=== PATIENT | female | born 1975 | race Caucasian/White ===

== ENCOUNTER 2020-04-09 12:15 | Outpatient (REF) | payer MEDICARE, SELFPAY | END 2020-04-09 12:16 | disposition home or self-care (01) | LOC: HO.LAB 12:15 | PROVIDERS: Visit Provider Internal Medicine | DX: Z20.828 Contact with and (suspected) exposure to other viral communicable diseases (principal) | CPT/HCPCS: C9803; U0003 ==

== ENCOUNTER 2020-05-01 10:24 | Outpatient (REF) | payer OTHER, SELFPAY ==
--- NOTE | 2020-05-01 10:36 | XR_ITS ---
EXAMINATION: XR BILATERAL SHOULDERS CLINICAL INFORMATION: Pain. COMPARISON: None. TECHNIQUE: Each 3 views. FINDINGS: Left Shoulder: Mild glenohumeral joint osteoarthritis. No fracture or dislocation. No abnormal soft tissue calcification. AC joint appears intact. Right Shoulder: Mild glenohumeral joint osteoarthritis. AC joint is intact. No abnormal soft tissue calcification. No fracture or dislocation. XR/XR shoulder RT min 2V IMPRESSION: Mild bilateral glenohumeral joint osteoarthritis.
--- NOTE | 2020-05-01 10:36 | XR_ITS ---
EXAMINATION: XR BILATERAL SHOULDERS CLINICAL INFORMATION: Pain. COMPARISON: None. TECHNIQUE: Each 3 views. FINDINGS: Left Shoulder: Mild glenohumeral joint osteoarthritis. No fracture or dislocation. No abnormal soft tissue calcification. AC joint appears intact. Right Shoulder: Mild glenohumeral joint osteoarthritis. AC joint is intact. No abnormal soft tissue calcification. No fracture or dislocation. XR/XR shoulder LT min 2V IMPRESSION: Mild bilateral glenohumeral joint osteoarthritis.
== END 2020-05-01 10:25 | disposition home or self-care (01) ==
LOC: HO.HOSX 10:24
PROVIDERS: PCP Internal Medicine; Visit Provider Orthopaedic Surgery
DX: M75.41 Impingement syndrome of right shoulder (principal); M75.42 Impingement syndrome of left shoulder
CPT/HCPCS: 73030; 99202

== ENCOUNTER 2020-05-15 12:31 | Outpatient (REF) | payer OTHER, SELFPAY | END 2020-05-15 12:32 | disposition home or self-care (01) | LOC: HO.LAB 12:31 | PROVIDERS: Visit Provider Internal Medicine | DX: Z20.822 Contact with and (suspected) exposure to COVID-19 (principal) | CPT/HCPCS: 36415; C9803; U0003; U0005 ==

== ENCOUNTER 2020-05-25 16:23 | Emergency (ER) | payer OTHER, SELFPAY ==
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
[2020-05-25 18:12] VITALS: BP 126/85; PULSE 76; RESP 18; TEMP 36.7; O2SAT 98; BMI 28.4
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
[2020-05-25 19:57] VITALS: BP 134/78; PULSE 78; RESP 18; TEMP 37.1; O2SAT 97
== END 2020-05-25 21:13 | disposition home or self-care (01) ==
PROVIDERS: Emergency Provider Emergency Medicine
DX: S13.4XXA Sprain of ligaments of cervical spine, initial encounter (principal); S39.012A Strain of muscle, fascia and tendon of lower back, initial encounter; V43.52XA Car driver injured in collision with other type car in traffic accident, initial encounter; M50.322 Other cervical disc degeneration at C5-C6 level; Y93.89 Activity, other specified; Y92.414 Local residential or business street as the place of occurrence of the external cause; Y99.9 Unspecified external cause status
CPT/HCPCS: 71046; 72040; 72100; 72170; 72220; 99283; 99284

== ENCOUNTER 2020-08-23 08:05 | Outpatient (REF) | payer OTHER, SELFPAY | END 2020-08-23 08:06 | disposition home or self-care (01) | LOC: HO.HOSX 08:05 | PROVIDERS: Visit Provider Physician Assistant | DX: Z13.89 Encounter for screening for other disorder (principal) ==

== ENCOUNTER 2020-08-24 12:40 | Outpatient (REF) | payer OTHER, SELFPAY ==
--- NOTE | ~2020-08-24 | XR_ITS ---
EXAMINATION: BILATERAL KNEE X-RAY CLINICAL INFORMATION: Pain COMPARISON: None TECHNIQUE: Standing AP, lateral and sunrise view of both knees FINDINGS: Right: Bone alignment is normal. No fracture or dislocation is seen. There is mild medial femoral tibial joint space narrowing. There is a joint effusion. Left: Bone alignment is normal. No fracture or dislocation is seen. Joint spaces are normal. There is no joint effusion. XR/XR knee standing BI IMPRESSION: Mild joint space narrowing at the medial femoral tibial joint and joint joint effusion. Normal left knee.
--- NOTE | ~2020-08-24 | XR_ITS ---
EXAMINATION: BILATERAL KNEE X-RAY CLINICAL INFORMATION: Pain COMPARISON: None TECHNIQUE: Standing AP, lateral and sunrise view of both knees FINDINGS: Right: Bone alignment is normal. No fracture or dislocation is seen. There is mild medial femoral tibial joint space narrowing. There is a joint effusion. Left: Bone alignment is normal. No fracture or dislocation is seen. Joint spaces are normal. There is no joint effusion. XR/XR knee RT 2V IMPRESSION: Mild joint space narrowing at the medial femoral tibial joint and joint joint effusion. Normal left knee.
--- NOTE | ~2020-08-24 | XR_ITS ---
EXAMINATION: BILATERAL KNEE X-RAY CLINICAL INFORMATION: Pain COMPARISON: None TECHNIQUE: Standing AP, lateral and sunrise view of both knees FINDINGS: Right: Bone alignment is normal. No fracture or dislocation is seen. There is mild medial femoral tibial joint space narrowing. There is a joint effusion. Left: Bone alignment is normal. No fracture or dislocation is seen. Joint spaces are normal. There is no joint effusion. XR/XR knee LT 2V IMPRESSION: Mild joint space narrowing at the medial femoral tibial joint and joint joint effusion. Normal left knee.
== END 2020-08-24 12:41 | disposition home or self-care (01) ==
LOC: HO.HOSX 12:40
PROVIDERS: Visit Provider Physician Assistant
DX: M25.561 Pain in right knee (principal); M25.562 Pain in left knee; M22.2X1 Patellofemoral disorders, right knee; M22.2X2 Patellofemoral disorders, left knee
CPT/HCPCS: 73560; 73565

== ENCOUNTER 2020-09-29 12:21 | Outpatient (REF) | payer OTHER, SELFPAY | END 2020-09-29 12:22 | disposition home or self-care (01) | LOC: HO.LAB 12:21 | PROVIDERS: Visit Provider Nurse Practitioner Family | DX: R30.0 Dysuria (principal) | CPT/HCPCS: 87086; 87088; 87186 ==

== ENCOUNTER 2021-05-06 10:30 | Outpatient (RCR) | payer OTHER, SELFPAY ==
[2021-04-22 12:15] VITALS: BMI 28.3
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
--- NOTE | 2021-04-22 16:59 | P.CNPS_ITS ---
History of Present Illness Chief Complaint: Bipolar, Anxiety, Depression [facility] Medical History Anxiety Diagnostics Vital Signs (24Hr): BMI result Body Mass Index 28.3 Medications Allergies Allergies Allergy/AdvReac Type Severity Reaction Status Date / Time fluconazole [Diflucan] Allergy Unknown unk Verified 08/24/20 12:55 Assessment & Plan I spent minutes with the patient and/or on the patient floor today, greater than?50% of which was spent counseling/coordinating care.
--- NOTE | 2021-04-26 14:10 | PC.NURSE ---
The client came to community meeting but left after for the day due to feeling very ill and going to get tested for COVID
--- NOTE | 2021-04-29 15:05 | P.PNPSP_ITS ---
Subjective Subjective Date of Service: 04/29/21 Reason For Visit: Bipolar, Anxiety, Depression Guardianship: No Medical Problems Affecting Mental Status: No Interim History: Becki reports I'm okay, a little overwhelmed . Reports feeling ill, as was diagnosed with COVID yesterday. Describes mood as ?not the best ?. No thoughts of harm to self or others, no safety concern. Reports positive affect from added Vistaril. Medication Compliance: Yes Side effects from medications: No Attending Groups: Yes Review of Systems Acute medical concerns: Yes Currently has COVID. Medical Review of Systems: changed Review of Systems Constitutional: Reports body ache(s), Reports fatigue, Reports lethargy and Reports malaise Eyes: Reports no additional eye complaints Reports nasal congestion and Reports nasal discharge Cardiovascular: Reports no additional cardiovascular complaints Respiratory: Reports cough Gastrointestinal: Reports no additional gastrointestinal complaints Genitourinary: Reports no additional female genitourinary complaints Musculoskeletal: Reports no additional musculoskeletal complaints Skin/Breast: Reports system reviewed and no additional complaints, except as docu Reports system reviewed and no additional complaints, except as documented Endocrine: Reports fatigue Mental Status Exam Mental Status Exam Narrative: Well-developed, well-nourished female, in NAD. Client was walking about during encounter. Patient Appearance: Fatigued, Disheveled and Appropriate Patient Orientation: Person, Place, Time and Situation Level of Consciousness: Appropriate and Alert Patient Behavior: Appropriate, Cooperative, Restless, Distractible and Good Eye Contact Mood Description: Appropriate, Depressed and Anxious Affect Description: Depressed, Anxious (irritable) and Nervous Patient Cognition Impaired: No Ability to Follow Directions: Excellent Speech Pattern: Clear, Appropriate and Coherent Memory Description: Intact Hallucinations: None Delusions: Not Present Thought Process: Intact Thought Content: positive for Intact Depressive Symptoms: Increased Anxiety, Increased Irritability, Loss of Int. in Activity, Hopelessness, Increased Fatigue and Difficulty Concentrating Judgement: Fair Diagnostics Vital Signs (24Hr): BMI result Body Mass Index 28.3 Assessment & Plan Assessment & Plan (1) WANDA (generalized anxiety disorder): Status: Acute Code(s): F41.1 - Generalized anxiety disorder (2) Major depressive disorder, recurrent severe without psychotic features: Status: Acute Code(s): F33.2 - Major depressive disorder, recurrent severe without psychotic features Assessment and Plan: Client continues with symptoms of anxiety and depression. Reports feeling overwhelmed today. No indication of harm to self or others, no safety concern. Reports that the Vistaril that was started during last visit has been helpful. Reports she is currently suffering from COVID-19 symptoms. Reports feeling helpless. Discussed alcohol use, and medications such as naltrexone or acamprosate. She states that she had been on naltrexone in the past, and stopped 5 years ago when she found out she was . A referral to [facility] was offered, as well as starting oral naltrexone now. She stated that she will wait, and ?think about it ?. Assessment and Plan: 1. Continue with current medications as prescribed. 2. Continue with current [facility] plan of care. 3. Follow up as per protocol. Patient educated on: diagnosis, medication risk/benefits, substance abuse and therapeutic strategies Informed Consent: understands Reason for contiued partial hosp. stay Substantial Risk for: inability to function and med/psych decompensation Certification I certify that partial hospital treatment is medically necessary due to the symptoms and problems resulting from the patient's mental illness and the failure to treat the patient at the partial hospital level of care would likely result in the patient requiring inpatient psychiatric care which could not be prevented at a less intensive level of care. I spent minutes with the patient and/or on the patient floor today, greater than?50% of which was spent counseling/coordinating care. Discharge Plan Discharge Attending provider: Eduard Caceres Medications: New hydroxyzine HCl 50 mg tablet 50 mg PO TID PRN (Reason: anxiety, agitation) Qty: 90 RF: 0 No Action clonazepam [Klonopin] 1 mg Tablet 1 mg PO DAILY PRN (Reason: Anxiety) RF: 0 propranolol 40 mg Tablet 20 mg PO TID PRN (Reason: panic/anxiety) RF: 0 Flovent 44 mcg/actuation Hfa Aerosol Inhaler 2 puff INHALATION BID RF: 0 albuterol sulfate 90 mcg/actuation Hfa Aerosol Inhaler 2 puff INHALATION Q6H PRN (Reason: Shortness Of Breath) RF: 0 aripiprazole 15 mg Tablet 7.5 mg PO DAILY RF: 0 melatonin 10 mg Tablet 10 mg PO BEDTIME PRN (Reason: Insomnia) RF: 0 Telehealth Telehealth Location of provider rendering services: practice address Location of patient: address on file Patient Identification confirmed using: Name, : Yes Telehealth method: video Patient verbally consented to treatment: Yes Patient verbally consented to billing insurance company: Yes Patient informed of any privacy concerns related to visit: Yes Time spent with patient (mins): 15
--- NOTE | 2021-05-03 10:16 | PC.NURSE ---
I spoke to patient yesterday and she stated she has an upcoming eye appointment with a new eye doctor d/t complaints of blurry vision. Alaina Yuen NP aware.
--- NOTE | 2021-05-06 12:57 | PC.NURSE ---
referral made to [facility] spoke with Briana Raines. I gave demographics and they will need md order faxed.
--- NOTE | 2021-05-06 15:01 | PC.NURSE ---
I left a message with the clients therapist, Nancy Pollock, about the clients upcoming completion of program and dc plans.
--- NOTE | 2021-05-06 20:54 | P.PNPSP_ITS ---
Subjective Subjective Date of Service: 05/06/21 Reason For Visit: Bipolar, Anxiety, Depression Guardianship: No Medical Problems Affecting Mental Status: No Interim History: Becki reports I'm doing fairly well today . She wants to go to [facility]. Reports craving alcohol, Interested in Vivitrol. Reports hydroxyzine has help decrease anxiety symptoms. No thoughts of harm to self or others, no safety concern. Medication Compliance: Yes Side effects from medications: No Attending Groups: Yes Review of Systems Acute medical concerns: No Medical Review of Systems: unchanged Review of Systems Review of Systems Yes all other systems are reviewed and are negative Constitutional: Reports no additional constitutional complaints Eyes: Reports no additional eye complaints Mental Status Exam Mental Status Exam Narrative: Well-developed, well-nourished female, in NAD. Fully attentive during encounter. Mood good , affect congruent, no constriction/lability noted. Patient Appearance: Well Grooomed and Appropriate Patient Orientation: Person, Place, Time and Situation Level of Consciousness: Appropriate and Alert Patient Behavior: Appropriate, Cooperative and Good Eye Contact Mood Description: Appropriate Affect Description: Calm Patient Cognition Impaired: No Ability to Follow Directions: Excellent Speech Pattern: Clear, Appropriate and Coherent Memory Description: Intact Hallucinations: None Delusions: Not Present Thought Process: Intact Thought Content: positive for Intact Judgement: Good Diagnostics Vital Signs (24Hr): BMI result Body Mass Index 28.3 Assessment & Plan Assessment & Plan (1) Major depressive disorder, recurrent severe without psychotic features: Status: Acute Code(s): F33.2 - Major depressive disorder, recurrent severe without psychotic features Assessment and Plan: Reports feeling less depressed, states groups in [facility] have been helpful. Taking hydroxyzine prn, with positive effect for ptsd/stress/anxiety symptom management. No thoughts of harm to self or others, no safety concerns. States she believes she would benefit from anger management classes, states she is going to look for one. (2) Post traumatic stress disorder (PTSD): Status: Acute Code(s): F43.10 - Post-traumatic stress disorder, unspecified Assessment and Plan: Utilizing prn hydroxyzine, with good effect. (3) Alcohol abuse: Status: Acute Code(s): F10.10 - Alcohol abuse, uncomplicated Assessment and Plan: Remains abstinent from alcohol. States she has cravings, and is interested in Vivitrol. Willing to start oral naltrexone, and receive a referral to [facility]. Community support groups, such as AA were also strongly encouraged. She has been attending, and says she plans to continue. Assessment and Plan: 1. Continue with current medications as prescribed. 2. Start naltrexone 50mg daily, script sent, and referral to [facility] [[email or web address] placed. 3. Client stable for discharge frm [facility], [facility]. Patient educated on: diagnosis, medication risk/benefits, substance abuse and therapeutic strategies Informed Consent: understands Reason for contiued partial hosp. stay Substantial Risk for: stable for discharge Certification I certify that partial hospital treatment is medically necessary due to the symptoms and problems resulting from the patient's mental illness and the failure to treat the patient at the partial hospital level of care would likely result in the patient requiring inpatient psychiatric care which could not be prevented at a less intensive level of care. I spent minutes with the patient and/or on the patient floor today, greater than?50% of which was spent counseling/coordinating care. Discharge Plan Discharge Attending provider: Eduard Caceres Additional Instructions: Rebecca Pollock [facility] 04/28/21, Elizabeth Moser [employer]PERATOR 06/04/21 referral made to [address]. Appointment 05/10/21 at 10:00 Am. Medications: New hydroxyzine HCl 50 mg tablet 50 mg PO TID PRN (Reason: anxiety, agitation) Qty: 90 RF: 0 naltrexone 50 mg tablet 50 mg PO DAILY 30 Days Qty: 30 RF: 0 No Action clonazepam [Klonopin] 1 mg Tablet 1 mg PO DAILY PRN (Reason: Anxiety) RF: 0 propranolol 40 mg Tablet 20 mg PO TID PRN (Reason: panic/anxiety) RF: 0 Flovent 44 mcg/actuation Hfa Aerosol Inhaler 2 puff INHALATION BID RF: 0 albuterol sulfate 90 mcg/actuation Hfa Aerosol Inhaler 2 puff INHALATION Q6H PRN (Reason: Shortness Of Breath) RF: 0 aripiprazole 15 mg Tablet 7.5 mg PO DAILY RF: 0 melatonin 10 mg Tablet 10 mg PO BEDTIME PRN (Reason: Insomnia) RF: 0 Stand Alone Forms: Patient Portal Discharge page Telehealth Telehealth Location of provider rendering services: practice address Location of patient: address on file Patient Identification confirmed using: Name, : Yes Telehealth method: video Patient verbally consented to treatment: Yes Patient verbally consented to billing insurance company: Yes Patient informed of any privacy concerns related to visit: Yes Time spent with patient (mins): 20
--- NOTE | 2021-05-07 11:00 | PC.NURSE ---
Upon the clients permission I spoke with Monserrat CARMICHAEL, the court gang investigator. I informed her of the client successful completion of the program including attendance , active participation in groups, and aftercare plans.
--- NOTE | 2021-05-07 11:05 | PC.NURSE ---
I spoke with Becki this morning and she gave me permission to speak with Monserrat CARMICHAEL . Monserrat is the court paranormal investigator.
--- NOTE | 2021-05-07 11:19 | PC.NURSE ---
Patient discharged on 05/06/21. Patient feeling ready for discharge. Denied SI or thoughts to harm self. Feeling anxious regarding court on 05/07/21. Reviewed patient medications with patient. Reports taking medications as prescribed. Patient interested in medication assisted treatment at [facility] and she has an appointment on 05/10/21 at 10:00 am.
== END 2021-05-07 07:08 | disposition home or self-care (01) ==
LOC: HO.PHPA 10:30
PROVIDERS: Visit Provider Psychiatry & Neurology Psychiatry
DX: F33.2 Major depressive disorder, recurrent severe without psychotic features (principal); F41.1 Generalized anxiety disorder; F43.10 Post-traumatic stress disorder, unspecified; F10.10 Alcohol abuse, uncomplicated; Z79.899 Other long term (current) drug therapy
CPT/HCPCS: 90791; 90853

== ENCOUNTER → 2021-05-13 10:14 | Outpatient (BNVA) | payer OTHER, SELFPAY | PROVIDERS: Visit Provider Internal Medicine | DX: F10.10 Alcohol abuse, uncomplicated (principal); F43.10 Post-traumatic stress disorder, unspecified; F33.2 Major depressive disorder, recurrent severe without psychotic features; F41.1 Generalized anxiety disorder; Z79.899 Other long term (current) drug therapy | CPT/HCPCS: 80305; 99202 ==

== ENCOUNTER → 2021-05-28 11:21 | Outpatient (BNVA) | payer OTHER, SELFPAY | PROVIDERS: Visit Provider Internal Medicine | DX: F10.10 Alcohol abuse, uncomplicated (principal); Z51.81 Encounter for therapeutic drug level monitoring; Z79.899 Other long term (current) drug therapy | CPT/HCPCS: 80305; 96372; 99212; J2315 ==

== ENCOUNTER 2021-06-06 16:03 | Outpatient (REF) | payer OTHER, SELFPAY ==
[2021-06-06 16:39] LABS: Hemoglobin 13.9 g/dl (12.0-16.0); Mean Corpuscular HGB Conc 33.1 g/dl (31.0-35.0); Mean Corpuscular Hemoglobin 29.9 pg (27.0-33.0); Mean Corpuscular Volume 90.3 fL (80.0-98.0); Mean Platelet Volume 9.5 fL (9.4-12.3); Platelet Count 260 X10*3/uL (160-400); Red Blood Count 4.65 X10*6/uL (4.20-5.50); Red Cell Distribution Width 13.3 % (11.0-16.0); White Blood Count 9.2 X10*3/uL (4.8-10.8)
[2021-06-06 16:58] LABS: Alanine Aminotransferase 11 U/L (0-31); Alkaline Phosphatase 74 U/L (39-117); Anion Gap 12 (12-20); Aspartate Amino Transferase 17 U/L (5-31); Bilirubin Direct 0.2 mg/dL (0.0-0.5); Bilirubin Total 0.7 mg/dL (0.0-1.0); Blood Urea Nitrogen 8 mg/dL (9-16); Calcium 9.4 mg/dL (8.4-10.2); Carbon Dioxide 26 mmol/L (22-29); Chloride 104 mmol/L (96-108); Estimated Glomerular Filt Rate > 60; Glucose Random 123 mg/dL (60-115); Potassium 3.9 mmol/L (3.3-5.1); Sodium 138 mmol/L (135-145); Total Protein 6.8 g/dL (6.5-8.0)
[2021-06-06 17:35] LABS: Amphetamine Screen Urine Not Detected (Not Detect); Barbiturates, Urine Not Detected (Not Detect); Benzodiazepines Screen Urine Not Detected (Not Detect); Cannabinoid Screen Urine POSITIVE (Not Detect); Cocaine Screen Urine Not Detected (Not Detect); Fentanyl, urine Not Detected (Not Detect); Opiate Screen Urine Not Detected (Not Detect); Phencyclidine Screen Urine Not Detected (Not Detect)
[2021-06-07 07:39] LABS: Hepatitis A Antibody IgG Nonreactive (Nonreactive); ~Hepatitis A Antibody IgG 0.55 S/CO (0.00-0.99)
[2021-06-07 07:49] LABS: HBS Num1 1.18 mIU/mL (0-7.99); ~HepC Num1 0.08 S/CO (0.00-0.79); ~Hepatitis B Surface Antibody NONREACTIVE (Nonreactive); ~Hepatitis C Antibody Nonreactive (Nonreactive)
[2021-06-07 08:00] LABS: HIV AB/AG Nonreactive (Nonreactive); HIV Num 1 0.05 S/CO (0.00-0.99); Hepatitis B Surface Antigen Negative (Negative)
== END 2021-06-06 16:04 | disposition home or self-care (01) ==
LOC: HO.LAB 16:03
PROVIDERS: Absent Provider Nurse Practitioner Psychiatric/Mental Health; PCP Nurse Practitioner Psychiatric/Mental Health; Visit Provider Internal Medicine
DX: F10.10 Alcohol abuse, uncomplicated (principal); Z79.891 Long term (current) use of opiate analgesic
CPT/HCPCS: 36415; 80048; 80076; 80307; 85027; 86706; 86708; 86803; 87340; 87389

== ENCOUNTER → 2021-06-25 10:37 | Outpatient (BNVA) | payer OTHER, SELFPAY | PROVIDERS: PCP Nurse Practitioner Psychiatric/Mental Health; Visit Provider Internal Medicine | DX: F10.10 Alcohol abuse, uncomplicated (principal); Z51.81 Encounter for therapeutic drug level monitoring; Z79.899 Other long term (current) drug therapy | CPT/HCPCS: 80305; 96372; 99212; J2315 ==

== ENCOUNTER → 2021-07-24 14:03 | Outpatient (BNVA) | payer OTHER, SELFPAY | PROVIDERS: Visit Provider Internal Medicine | DX: Z51.81 Encounter for therapeutic drug level monitoring (principal); F10.10 Alcohol abuse, uncomplicated | CPT/HCPCS: 80305; 96372; 99212; J2315 ==

== ENCOUNTER → 2021-08-27 13:04 | Outpatient (BNVA) | payer OTHER, SELFPAY | PROVIDERS: Visit Provider Internal Medicine | DX: Z51.81 Encounter for therapeutic drug level monitoring (principal); F10.10 Alcohol abuse, uncomplicated | CPT/HCPCS: 80305; 96372; 99212; J2315 ==

== ENCOUNTER → 2021-09-30 13:30 | Outpatient (BNVA) | payer OTHER, SELFPAY | PROVIDERS: Visit Provider Internal Medicine | DX: Z51.81 Encounter for therapeutic drug level monitoring (principal); Z32.02 Encounter for pregnancy test, result negative; F10.10 Alcohol abuse, uncomplicated; F17.210 Nicotine dependence, cigarettes, uncomplicated | CPT/HCPCS: 96372; 99212; J2315 ==

== ENCOUNTER → 2021-10-28 14:21 | Outpatient (BNVA) | payer OTHER, SELFPAY | PROVIDERS: Visit Provider Internal Medicine | DX: Z51.81 Encounter for therapeutic drug level monitoring (principal); F10.10 Alcohol abuse, uncomplicated; Z32.02 Encounter for pregnancy test, result negative | CPT/HCPCS: 80305; 81025; 96372; 99212; J2315 ==

== ENCOUNTER → 2021-12-02 14:04 | Outpatient (BNVA) | payer OTHER, SELFPAY | PROVIDERS: Visit Provider Internal Medicine | DX: F10.10 Alcohol abuse, uncomplicated (principal) | CPT/HCPCS: 99212; J2315 ==

== ENCOUNTER → 2022-01-03 13:15 | Outpatient (BNVA) | payer OTHER, SELFPAY | PROVIDERS: Visit Provider Internal Medicine | DX: F10.10 Alcohol abuse, uncomplicated (principal) | CPT/HCPCS: 96372 ==

== ENCOUNTER → 2022-01-06 13:10 | Outpatient (BNVA) | payer OTHER, SELFPAY | PROVIDERS: Visit Provider Internal Medicine | DX: F10.10 Alcohol abuse, uncomplicated (principal); Z51.81 Encounter for therapeutic drug level monitoring; Z79.899 Other long term (current) drug therapy | CPT/HCPCS: 99212 ==

== ENCOUNTER 2022-01-14 16:04 | Emergency (ER) | payer OTHER, SELFPAY ==
--- NOTE | ~2022-01-14 | XR_ITS ---
EXAMINATION: XR CHEST CLINICAL INFORMATION: Cough COMPARISON: 05/25/2020 TECHNIQUE: 2 views of the chest were obtained. FINDINGS: Lungs are hyperinflated but there are no significant abnormality is noted involving the heart, lungs, mediastinum, bony thorax or soft tissues. XR/XR chest 2V IMPRESSION: Unremarkable examination.
[2022-01-14 17:13] VITALS: BP 120/82; PULSE 79; RESP 22; TEMP 36.9; O2SAT 97; BMI 36.0
[2022-01-14 17:34] LABS: MANUAL DIFF FLAG NO
[2022-01-14 17:53] LABS: Anion Gap 15 (12-20); Blood Urea Nitrogen 6 mg/dL (9-16); Carbon Dioxide 27 mmol/L (22-29); Chloride 104 mmol/L (96-108); Estimated Glomerular Filt Rate > 60; Glucose Random 94 mg/dL (60-115); Potassium 3.9 mmol/L (3.3-5.1); Sodium 142 mmol/L (135-145)
[2022-01-14 17:57] LABS: COVID-19 Test Negative (Negative)
[2022-01-14 17:58] LABS: Basophils Absolute Auto 0.1 X10*3/uL (0.0-0.2); Basophils Percent Auto 0.7 % (0-2); Eosinophils Absolute Auto 0.1 X10*3/uL (0.0-0.4); Eosinophils Percent Auto 1.1 % (0-4); Hemoglobin 14.2 g/dl (12.0-16.0); Imm Gran Abs Auto 0.02 X10*3/uL (0.00-0.03); Imm Gran Pct Auto 0.3 % (0.0-0.4); Lymphocytes Absolute Auto 2.5 X10*3/uL (1.2-4.9); Lymphocytes Percent Auto 34.8 % (20-40); Mean Corpuscular HGB Conc 33.8 g/dl (31.0-35.0); Mean Corpuscular Hemoglobin 30.3 pg (27.0-33.0); Mean Corpuscular Volume 89.6 fL (80.0-98.0); Mean Platelet Volume 9.8 fL (9.4-12.3); Monocytes Absolute Auto 1.1 X10*3/uL (0.1-1.2); Monocytes Percent Auto 15.1 % (2-11); Neutrophils Absolute Auto 3.4 x10*3/uL (2.0-8.3); Platelet Count 246 X10*3/uL (160-400); Red Blood Count 4.69 X10*6/uL (4.20-5.50); Red Cell Distribution Width 13.9 % (11.0-16.0); White Blood Count 7.1 X10*3/uL (4.8-10.8)
--- NOTE | 2022-01-14 20:19 | ED.URI ---
HPI - URI/Sore Throat General Chief Complaint: Upper Respiratory Symptoms Stated Complaint: wheezing,congestion,coughing Time Seen by Provider: 01/14/22 19:35 Source: patient Mode of arrival: ambulatory Limitations: no limitations History of Present Illness HPI Narrative: Patient presents emergency department for evaluation of upper respiratory symptoms. States she has been having wheezing, coughing, and congestion for the past 5 days. Symptoms are worse while she is lying flat or when walking up and down the stairs at her home. Denies fevers, chills, neck pain, neck stiffness, dizziness, lightheadedness, headache, chest pain, shortness of breath, difficulty breathing, nausea, vomiting, abdominal pain, weakness. Related Data Home Medications Medication Instructions Recorded Confirmed albuterol sulfate 90 mcg/actuation 2 puff inhalation Q6H PRN 04/22/21 04/22/21 aerosol inhaler Shortness Of Breath aripiprazole 15 mg tablet 7.5 mg PO DAILY 04/22/21 04/22/21 clonazepam 1 mg tablet (Klonopin) 1 mg PO DAILY PRN Anxiety 04/22/21 04/22/21 fluticasone propionate 44 2 puff inhalation BID 04/22/21 04/22/21 mcg/actuation HFA aerosol inhaler melatonin 10 mg tablet 10 mg PO BEDTIME PRN Insomnia 04/22/21 04/22/21 propranolol 40 mg tablet 20 mg PO TID PRN panic/anxiety 04/22/21 04/22/21 Previous Rx's Medication Instructions Recorded hydroxyzine HCl 50 mg tablet 50 mg PO TID PRN anxiety, 04/22/21 agitation #90 tabs naltrexone 50 mg tablet 50 mg PO DAILY 30 days #30 tabs 05/06/21 naltrexone microspheres 380 mg 380 mg IM Q4W 30 days #1 ea 10/28/21 intramuscular suspension,extended release (Vivitrol) acamprosate 333 mg tablet,delayed 666 mg PO TID 30 days #180 tabs 01/06/22 release albuterol sulfate 90 mcg/actuation 2 puff inhalation Q4-6H PRN 01/14/22 aerosol inhaler shortness of breath or wheezing #6.7 grams guaifenesin 600 mg tablet, 600 mg PO Q12H PRN congestion #14 01/14/22 extended release 12 hr tabs prednisone 20 mg tablet 40 mg PO DAILY 5 days #10 tabs 10/04/22 Allergies Allergy/AdvReac Type Severity Reaction Status Date / Time fluconazole [Diflucan] Allergy Unknown unk Verified 06/25/21 10:49 Review of Systems Review of Systems: Constitutional: No fever. No chills. No weakness. Positive fatigue. ENT/ Mouth: No Ear Pain, positive Nasal Congestion, no sore throat, No Rhinorrhea, No Swallowing Difficulty Skin: No rash or itching. Cardiovascular: No chest pain. No palpitations. Respiratory: No shortness of breath. Positive cough. Positive sputum production. Gastrointestinal: No nausea. No vomiting. No diarrhea. No abdominal pain. Genitourinary: No burning micturition. No urinary frequency. Neurologic: No headache. No dizziness. No syncope. No numbness or tingling in the extremities. Musculoskeletal: No muscle pain. No back pain. No joint pain or stiffness. Yes all other systems are reviewed and are negative PMFSH Past Medical History Attestation statement: The following information was validated with the patient. Source: old records reviewed Medical History Anxiety Social History Social History Household Members: Children Alcohol intake: current Alcohol intake frequency: a few times a month Patient Tobacco Use Status: Current everyday Tobacco user Tobacco use type: Cigarette Cigarettes Per Day: 10 Years Smoked: Ari age 16 Advance Directives: No Advance Directives Information Provided: No Current occupational status: employed Current occupation: [employer] - Left Handed Physical Exam Vital Signs: Vital Signs: Last Vital Signs Temp 98.4 F 01/14/22 17:13 Pulse 79 01/14/22 17:13 Resp 22 H 01/14/22 17:13 BP 120/82 01/14/22 17:13 Pulse Ox 97 01/14/22 17:13 O2 Del Method 01/14/22 17:13 BMI result Body Mass Index 36.0 Vital signs have been reviewed as normal and appeared to be correct. Blood pressure normal.? Heart rate normal.? Respiration rate normal. Temperature normal.? Oxygen saturation normal. Appearance: Alert.?Oriented to person, place and time. No acute distress.?Normal affect. Eyes: Pupils equal, round and reactive to light.? ENT: TM normal bilaterally. Pharynx normal.?? Neck: Normal inspection.? Neck supple.??No cervical adenopathy CVS: Heart sounds normal. Normal heart rate and rhythm.? Pulses normal.?? Respiratory: No respiratory distress.? Lung sounds clear to auscultation bilateral bases, coarseness to the bilateral upper lobes. Abdomen: Soft and non-tender. Normoactive bowel sounds. Skin: Skin warm and dry.? Normal skin color.? ? Extremities: No lower extremity edema.? Neuro: Moves all extremities spontaneously. Sensation intact bilaterally. No motor deficits. Ambulates with normal steady gait. Course Course Course Narrative: Patient is a 46-year-old female with past medical history of alcohol abuse, PTSD, depression, anxiety, presenting for evaluation of upper respiratory symptoms. COVID-19 testing is negative. Chest x-ray is negative for acute cardiopulmonary findings. CBC and BMP are overall unremarkable. At this time history and physical exam not consistent with ACS/PE/pneumonia. Well-appearing, nontoxic, afebrile, no tachycardia or tachypnea/hypoxia. Speaking clear full sentences, ambulatory with steady gait. At this time suspect upper respiratory infection with bronchitis. Discussed conservative treatment including rest, hydration, Tylenol/ibuprofen as needed for fever and body aches, saline nasal spray, humidifier, Mucinex, albuterol inhaler as needed, and prednisone. Advised to follow-up with primary care provider as needed, discussed reasons to return back to the emergency department. All questions were answered. Patient discharged home in stable condition. MDM - URI/Sore Throat Medical Records Attestation: I reviewed the patient's medical records. Lab Data Attestation: I reviewed the patient's lab results. Result diagrams: 01/14/22 17:29 01/14/22 17:29 Labs: Lab Results 01/14/22 01/14/22 01/14/22 Range/Units 17:29 17:29 17:29 WBC 7.1 (4.8-10.8) X10*3/uL RBC 4.69 (4.20-5.50) X10*6/uL Hgb 14.2 (12.0-16.0) g/dl Hct 42.0 (37.0-47.0) % MCV 89.6 (80.0-98.0) fL MCH 30.3 (27.0-33.0) pg MCHC 33.8 (31.0-35.0) g/dl RDW 13.9 (11.0-16.0) % Plt Count 246 (160-400) X10*3/uL MPV 9.8 (9.4-12.3) fL Immature Gran % (Auto) 0.3 (0.0-0.4) % Neut % (Auto) 48.0 (45-73) % Lymph % (Auto) 34.8 (20-40) % [place] % (Auto) 15.1 H (2-11) % Eos % (Auto) 1.1 (0-4) % Baso % (Auto) 0.7 (0-2) % Lymph # (Auto) 2.5 (1.2-4.9) X10*3/uL [place] # (Auto) 1.1 (0.1-1.2) X10*3/uL Eos # (Auto) 0.1 (0.0-0.4) X10*3/uL Baso # (Auto) 0.1 (0.0-0.2) X10*3/uL Abs Immat Gran (auto) 0.02 (0.00-0.03) X10*3/uL Absolute Neuts (auto) 3.4 (2.0-8.3) x10*3/uL Absolute Nucleated RBC 0.000 (0.0-0.012) X10*3/uL Nucleated RBC % (auto) 0.0 (0.0-0.2) /100WBC Sodium 142 (135-145) mmol/L Potassium 3.9 (3.3-5.1) mmol/L Chloride 104 (96-108) mmol/L Carbon Dioxide 27 (22-29) mmol/L Anion Gap 15 (12-20) BUN 6 L (9-16) mg/dL Creatinine 0.78 (0.5-1.4) mg/dL Estim Creat Clear Calc 103.0 Estimated GFR > 60 Random Glucose 94 (60-115) mg/dL Calcium 9.0 (8.4-10.2) mg/dL COVID-19 ([facility]) Negative (Negative) COVID-19 Clin Com See Note Imaging Data Chest x-ray: Radiologist's impression: XR/XR chest 2V IMPRESSION: Unremarkable examination. Discharge Plan Discharge Clinical Impression: Upper respiratory infection, Bronchitis Patient Disposition: Home, Self-Care Instructions: Upper Respiratory Infection (ED), Acute Bronchitis (ED) Additional Instructions: Use albuterol inhaler as needed for shortness of breath, wheezing, persistent cough. Take prednisone daily with food for 5 days. This can cause stomach upset so be sure to take it with food or milk. Take Mucinex as prescribed to help phlegm production/expect duration. Return to emergency department with any new or worsening symptoms or concerns. Follow-up with your primary care provider as needed. Prescriptions: New albuterol sulfate 90 mcg/actuation HFA aerosol inhaler 2 puff inhalation Q4-6H PRN (Reason: shortness of breath or wheezing) Qty: 6.7 0RF prednisone 20 mg tablet 40 mg PO DAILY 5 Days Qty: 10 0RF guaifenesin 600 mg tablet extended release 12hr 600 mg PO Q12H PRN (Reason: congestion) Qty: 14 0RF No Action clonazepam [Klonopin] 1 mg Tablet 1 mg PO DAILY PRN (Reason: Anxiety) propranolol 40 mg Tablet 20 mg PO TID PRN (Reason: panic/anxiety) Rx Instructions: Take 1/2 tab three times a day as needed. Flovent 44 mcg/actuation Hfa Aerosol Inhaler 2 puff INHALATION BID albuterol sulfate 90 mcg/actuation Hfa Aerosol Inhaler 2 puff INHALATION Q6H PRN (Reason: Shortness Of Breath) aripiprazole 15 mg Tablet 7.5 mg PO DAILY Rx Instructions: take 1/2 tab daily. melatonin 10 mg Tablet 10 mg PO BEDTIME PRN (Reason: Insomnia) hydroxyzine HCl 50 mg tablet 50 mg PO TID PRN (Reason: anxiety, agitation) Qty: 90 0RF naltrexone 50 mg tablet 50 mg PO DAILY 30 Days Qty: 30 0RF Vivitrol 380 mg suspension,extended rel recon 380 mg IM Q4W 30 Days Qty: 1 5RF acamprosate 333 mg tablet,delayed release (DR/EC) 666 mg PO TID 30 Days Qty: 180 3RF Interventions: ED Discharge Assessment Last Done: 01/14/22 21:01 Discharge Date/Time: 01/14/22 21:02
== END 2022-01-14 21:02 | disposition home or self-care (01) ==
PROVIDERS: Emergency Provider Emergency Medicine Emergency Medical Services
DX: J40 Bronchitis, not specified as acute or chronic (principal); J06.9 Acute upper respiratory infection, unspecified; F17.210 Nicotine dependence, cigarettes, uncomplicated; Z20.822 Contact with and (suspected) exposure to COVID-19; Z79.899 Other long term (current) drug therapy; Z71.6 Tobacco abuse counseling
CPT/HCPCS: 71046; 80048; 85025; 87635; 99282; 99283

== ENCOUNTER 2022-02-21 13:13 | Emergency (ER) | payer OTHER, SELFPAY ==
[2022-02-21 13:15] VITALS: BP 145/87; PULSE 75; RESP 18; TEMP 36.2; O2SAT 97; BMI 35.2
[2022-02-21 13:25] LABS: MANUAL DIFF FLAG NO
[2022-02-21 13:27] LABS: Basophils Absolute Auto 0.1 X10*3/uL (0.0-0.2); Basophils Percent Auto 0.4 % (0-2); Eosinophils Absolute Auto 0.2 X10*3/uL (0.0-0.4); Hematocrit 42.7 % (37.0-47.0); Hemoglobin 14.3 g/dl (12.0-16.0); Imm Gran Abs Auto 0.05 X10*3/uL (0.00-0.03); Imm Gran Pct Auto 0.3 % (0.0-0.4); Lymphocytes Absolute Auto 2.9 X10*3/uL (1.2-4.9); Lymphocytes Percent Auto 18.6 % (20-40); Mean Corpuscular HGB Conc 33.5 g/dl (31.0-35.0); Mean Corpuscular Hemoglobin 30.6 pg (27.0-33.0); Mean Corpuscular Volume 91.2 fL (80.0-98.0); Mean Platelet Volume 9.4 fL (9.4-12.3); Monocytes Percent Auto 6.2 % (2-11); Neutrophils Absolute Auto 11.6 x10*3/uL (2.0-8.3); Neutrophils Percent Auto 73.5 % (45-73); Platelet Count 262 X10*3/uL (160-400); Red Blood Count 4.68 X10*6/uL (4.20-5.50); Red Cell Distribution Width 14.1 % (11.0-16.0); White Blood Count 15.8 X10*3/uL (4.8-10.8)
[2022-02-21 14:01] LABS: Alanine Aminotransferase 13 U/L (0-31); Alkaline Phosphatase 83 U/L (39-117); Anion Gap 15 (12-20); Aspartate Amino Transferase 16 U/L (5-31); Bilirubin Total 0.3 mg/dL (0.0-1.0); Blood Urea Nitrogen 9 mg/dL (9-16); Calcium 8.8 mg/dL (8.4-10.2); Carbon Dioxide 25 mmol/L (22-29); Chloride 102 mmol/L (96-108); Creatinine Clr Calc Pharmacy 99.1; Estimated Glomerular Filt Rate > 60; Glucose Random 96 mg/dL (60-115); Potassium 4.4 mmol/L (3.3-5.1); Sodium 138 mmol/L (135-145)
--- NOTE | 2022-02-21 15:17 | ED_ITS ---
HPI - General Adult General Chief complaint: General Medical <HOUSTON Mcgee - Last Filed: 02/21/22 21:25> Stated complaint: Abscess <HOUSTON Mcgee - Last Filed: 02/21/22 21:25> Time Seen by Provider: 02/21/22 18:05 <HOUSTON Mcgee - Last Filed: 02/21/22 21:25> Source: patient <HOUSTON Mcgee - Last Filed: 02/21/22 21:25> Mode of arrival: ambulatory <HOUSTON Mcgee - Last Filed: 02/21/22 21:25> Limitations: no limitations <HOUSTON Mcgee - Last Filed: 02/21/22 21:25> History of Present Illness HPI narrative: 46-year-old female with a past medical history of anxiety, presenting to the ED complaining of abscess to genital area x1 week. admits tried to drain area at home last night which made it worse. Reports similar cysts/abscesses in the past, never to genital area. Denies area being open and draining. Denie s fever, chills, dysuria / hematuria, urinary hesitancy, pain with BMs , abdominal pain. <HOUSTON Rosenthal - Last Filed: 02/21/22 18:39> Onset (ago): week(s) <HOUSTON Rosenthal - Last Filed: 02/21/22 18:39> Related Data Home medications: Home Medications Medication Instructions Recorded Confirmed albuterol sulfate 90 mcg/actuation 2 puff inhalation Q6H PRN 04/22/21 04/22/21 aerosol inhaler Shortness Of Breath aripiprazole 15 mg tablet 7.5 mg PO DAILY 04/22/21 04/22/21 clonazepam 1 mg tablet (Klonopin) 1 mg PO DAILY PRN Anxiety 04/22/21 04/22/21 fluticasone propionate 44 2 puff inhalation BID 04/22/21 04/22/21 mcg/actuation HFA aerosol inhaler melatonin 10 mg tablet 10 mg PO BEDTIME PRN Insomnia 04/22/21 04/22/21 propranolol 40 mg tablet 20 mg PO TID PRN panic/anxiety 04/22/21 04/22/21 Previous Rx's Medication Instructions Recorded hydroxyzine HCl 50 mg tablet 50 mg PO TID PRN anxiety, 04/22/21 agitation #90 tabs naltrexone 50 mg tablet 50 mg PO DAILY 30 days #30 tabs 05/06/21 naltrexone microspheres 380 mg 380 mg IM Q4W 30 days #1 ea 10/28/21 intramuscular suspension,extended release (Vivitrol) acamprosate 333 mg tablet,delayed 666 mg PO TID 30 days #180 tabs 01/06/22 release albuterol sulfate 90 mcg/actuation 2 puff inhalation Q4-6H PRN 01/14/22 aerosol inhaler shortness of breath or wheezing #6.7 grams guaifenesin 600 mg tablet, 600 mg PO Q12H PRN congestion #14 01/14/22 extended release 12 hr tabs prednisone 20 mg tablet 40 mg PO DAILY 5 days #10 tabs 01/14/22 acetaminophen 500 mg tablet 500 mg PO Q6H PRN fever or pain 02/21/22 (Tylenol Extra Strength) #14 tabs cephalexin 500 mg capsule 500 mg PO QID 7 days #28 caps 02/21/22 doxycycline hyclate 100 mg tablet 100 mg PO BID 7 days #14 tabs 02/21/22 ibuprofen 800 mg tablet 800 mg PO Q8H PRN pain #14 tabs 02/21/22 <HOUSTON Mcgee - Last Filed: 02/21/22 21:25> Allergies/adverse reactions: Allergies Allergy/AdvReac Type Severity Reaction Status Date / Time fluconazole [Diflucan] Allergy Unknown unk Verified 06/25/21 10:49 <HOUSTON Mcgee - Last Filed: 02/21/22 21:25> Review of Systems Review of Systems: Constitutional: No Weight loss, No Fever, No Chills ENT/Mouth: No Ear Pain, No Nasal Congestion, No Sinus Pain, No sore throat, No Rhinorrhea, No Swallowing Difficulty Cardiovascular: No Chest Pain, No SOB Respiratory: No Cough, No Sputum, No Wheezing Gastrointestinal: No Nausea, No Vomiting, No Diarrhea, No Constipation, No Abdominal pain Genitourinary: No Dysuria, No Urinary Frequency, No Hematuria, No Urgency, No Flank Pain, No pain with BMs Musculoskeletal: No joint pain, No Myalgias, No Joint Swelling Skin: + Skin Lesions, No rash Neuro: No Weakness <HOUSTON Rosenthal - Last Filed: 02/21/22 18:39> Yes all other systems are reviewed and are negative <HOUSTON Rosenthal - Last Filed: 02/21/22 18:39> Constitutional: Constitutional: Reports as per HPI <HOUSTON Rosenthal - Last Filed: 02/21/22 18:39> [facility] Past Medical History Attestation statement: The following information was validated with the patient. <HOUSTON Rosenthal - Last Filed: 02/21/22 18:39> Medical History: Medical History Anxiety <HOUSTON Mgcee - Last Filed: 02/21/22 21:25> Social History Social History: Social History Household Members: Children Alcohol intake: current Alcohol intake frequency: a few times a month Patient Tobacco Use Status: Current everyday Tobacco user Tobacco use type: Cigarette Cigarettes Per Day: 10 Years Smoked: Ari age 16 Advance Directives: No Advance Directives Information Provided: No Current occupational status: employed Current occupation: [employer] - Left Handed <HOUSTON Mcgee - Last Filed: 02/21/22 21:25> Physical Exam ED Vital Signs: Vital Signs - 24 hr 02/21/22 13:15 02/21/22 18:36 Temperature 97.1 F 98.3 F Pulse Rate 75 98 Respiratory Rate 18 16 Blood Pressure 145/87 H 132/83 Pulse Oximetry 97 98 Oxygen Delivery Method Room Air Room Air BMI result Body Mass Index 35.2 <HOUSTON Mcgee - Last Filed: 02/21/22 21:25> Vital Signs - 24 hr 02/21/22 13:15 02/21/22 18:36 Temperature 97.1 F 98.3 F Pulse Rate 75 98 Respiratory Rate 18 16 Blood Pressure 145/87 H 132/83 Pulse Oximetry 97 98 Oxygen Delivery Method Room Air Room Air BMI result Body Mass Index 35.2 <HOUSTON Rosenthal - Last Filed: 02/21/22 18:39> Const General: cooperative, healthy appearing and no acute distress <HOUSTON Rosenthal - Last Filed: 02/21/22 18:39> Orientation/consciousness: patient oriented x3 <HOUSTON Rosenthal - Last Filed: 02/21/22 18:39> Limitations: no limitations <HOUSTON Rosenthal - Last Filed: 02/21/22 18:39> HENMT Head: Yes normal to inspection and Yes atraumatic <HOUSTON Rosenthal - Last Filed: 02/21/22 18:39> Ears: hearing grossly normal bilaterally <HOUSTON Rosenthal - Last Filed: 02/21/22 18:39> General nose exam: Normal external nose present <HOUSTON Rosenthal - Last Filed: 02/21/22 18:39> Face and sinus: Yes normal facial exam <HOUSTON Rosenthal - Last Filed: 02/21/22 18:39> Eyes General: appearance normal, both eyes and all related structures <HOUSTON Rosenthal - Last Filed: 02/21/22 18:39> EOM: EOMs intact bilaterally <HOUSTON Rosenthal - Last Filed: 02/21/22 18:39> Neck Neck: Yes normal visual inspection and Yes no meningeal signs <HOUSTON Rosenthal - Last Filed: 02/21/22 18:39> Resp Effort & Inspection: normal respiratory effort and no respiratory distress <HOUSTON Rosenthal - Last Filed: 02/21/22 18:39> Cardio Rate: regular rate <HOUSTON Rosenthal - Last Filed: 02/21/22 18:39> Heart sounds: S1 normal heart sound present and S2 normal heart sound present <HOUSTON Rosenthal - Last Filed: 02/21/22 18:39> GI Inspection: Yes normal to inspection <HOUSTON Rosenthal - Last Filed: 02/21/22 18:39> Palpation (GI): Soft to palpation, nontender, no guarding and not rigid <HOUSTON Rosenthal - Last Filed: 02/21/22 18:39> Other: + superficial indurated area with mild overlying erythema noted to left side of mons pubis/labia majora. +ttp. No warmth. No fluctuance. No streaking. No urethral/vaginal or anal involvement. <HOUSTON Rosenthal - Last Filed: 02/21/22 18:39> Skin Rashes: no rashes <HOUSTON Rosenthal Last Filed: 02/21/22 18:39> Wounds: no wounds <HOUSTON Rosenthal Last Filed: 02/21/22 18:39> Neuro General: patient oriented x3, tone normal and no meningeal signs <HOUSTON Rosenthal Last Filed: 02/21/22 18:39> Gait exam (Neuro): Normal gait present <HOUSTON Rosenthal Last Filed: 02/21/22 18:39> Extrem General: Yes normal to inspection <HOUSTON Rosenthal Last Filed: 02/21/22 18:39> Course Course Course Narrative: Rapid medical examination performed by Arianne Enriquez PA-C at 1518. Patient is a 46 year old female presenting to the emergency department today with a left sided groin abscess. Patient states that she has had this over a week and has had multiple cysts in the past across her body. Patient states that she has not followed up with a general surgeon for this. Patient will need to have area examined by another provider within the department for possible incision and drainage. Patient's CBC shows an elevated WBC count of 15.8. Patient placed back in the waiting room pending availability of a procedure room. <HOUSTON Mcgee Last Filed: 02/21/22 21:25> Rapid medical examination performed by Arianne Enriquez PA-C at 1518. Patient is a 46 year old female presenting to the emergency department today with a left sided groin abscess. Patient states that she has had this over a week and has had multiple cysts in the past across her body. Patient states that she has not followed up with a general surgeon for this. Patient will need to have area examined by another provider within the department for possible incision and drainage. Patient's CBC shows an elevated WBC count of 15.8. Patient placed back in the waiting room pending availability of a procedure rebecca m. - labs ordered in triage. Noted leukocytosis of 15.8. Labs otherwise unremarkable. low concern for severe sepsis <HOUSTON Rosenthal Last Filed: 02/21/22 18:39> Medications Administered Discontinued Medications Generic Name Dose Route Start Last Admin Trade Name Freq PRN Reason Stop Dose Admin Hydrocodone Bitart/Acetaminophen 1 tab 11/11/22 15:16 02/21/22 15:20 Hydrocodone Bit/Acetam 5/325 Tablet PO 02/21/22 15:17 1 tab ONCE ONE Administration Cephalexin HCl 500 mg 02/21/22 18:35 02/21/22 18:46 Cephalexin 500 Mg Capsule PO 02/21/22 18:36 500 mg ONCE ONE Administration Doxycycline Monohydrate 100 mg 02/21/22 18:35 02/21/22 18:46 Doxycycline Monohydrate 100 Mg Capsule PO 02/21/22 18:36 100 mg ONCE ONE Administration <HOUSTON Mcgee - Last Filed: 02/21/22 21:25> Medications Administered Discontinued Medications Generic Name Dose Route Start Last Admin Trade Name Jackie PRN Reason Stop Dose Admin Hydrocodone Bitart/Acetaminophen 1 tab 02/21/22 15:16 02/21/22 15:20 Hydrocodone Bit/Acetam 5/325 Tablet PO 02/21/22 15:17 1 tab ONCE ONE Administration Cephalexin HCl 500 mg 02/21/22 18:35 02/21/22 18:46 Cephalexin 500 Mg Capsule PO 02/21/22 18:36 500 mg ONCE ONE Administration Doxycycline Monohydrate 100 mg 02/21/22 18:35 02/21/22 18:46 Doxycycline Monohydrate 100 Mg Capsule PO 02/21/22 18:36 100 mg ONCE ONE Administration <HOUSTON Rosenthal - Last Filed: 02/21/22 18:39> Medical Decision Making MDM Narrative Medical decision making narrative: 46-year-old female with a past medical history of anxiety, presenting to the ED complaining of abscess to genital area x1 week. on exam vital signs stable, afebrile, NAD, nontoxic appearing, abdomen soft/ nontender, physical exam as above with noted indurated abscess to left mons pubis/labia majora. No evidence of Sagrario gangrene. No drainable abscess. No Bartholin's cyst. Plan: Po doxycycline and Keflex. Stressed importance of close follow-up in 2 days for re-evaluation and warm compresses at home. Discussed when to return to the ED for I&D <HOUSTON Rosenthal - Last Filed: 02/21/22 18:39> Medical Records Medical records reviewed: Yes I reviewed the patient's medical records. <HOUSTON Rosenthal - Last Filed: 02/21/22 18:39> Lab Data Lab results reviewed: Yes I reviewed the patient's lab results. <HOUSTON Rosenthal - Last Filed: 02/21/22 18:39> Result diagrams: : 02/21/22 13:21 02/21/22 13:21 <HOUSTON Mcgee - Last Filed: 02/21/22 21:25> Labs: Lab Results 02/21/22 02/21/22 Range/Units 13:21 13:21 WBC 15.8 H (4.8-10.8) X10*3/uL RBC 4.68 (4.20-5.50) X10*6/uL Hgb 14.3 (12.0-16.0) g/dl Hct 42.7 (37.0-47.0) % MCV 91.2 (80.0-98.0) fL MCH 30.6 (27.0-33.0) pg MCHC 33.5 (31.0-35.0) g/dl RDW 14.1 (11.0-16.0) % Plt Count 262 (160-400) X10*3/uL MPV 9.4 (9.4-12.3) fL Immature Gran % (Auto) 0.3 (0.0-0.4) % Neut % (Auto) 73.5 H (45-73) % Lymph % (Auto) 18.6 L (20-40) % Wolfe % (Auto) 6.2 (2-11) % Eos % (Auto) 1.0 (0-4) % Baso % (Auto) 0.4 (0-2) % Lymph # (Auto) 2.9 (1.2-4.9) X10*3/uL Wolfe # (Auto) 1.0 (0.1-1.2) X10*3/uL Eos # (Auto) 0.2 (0.0-0.4) X10*3/uL Baso # (Auto) 0.1 (0.0-0.2) X10*3/uL Abs Immat Gran (auto) 0.05 H (0.00-0.03) X10*3/uL Absolute Neuts (auto) 11.6 H (2.0-8.3) x10*3/uL Absolute Nucleated RBC 0.000 (0.0-0.012) X10*3/uL Nucleated RBC % (auto) 0.0 (0.0-0.2) /100WBC Sodium 138 (135-145) mmol/L Potassium 4.4 (3.3-5.1) mmol/L Chloride 102 (96-108) mmol/L Carbon Dioxide 25 (22-29) mmol/L Anion Gap 15 (12-20) BUN 9 (9-16) mg/dL Creatinine 0.80 (0.5-1.4) mg/dL Estim Creat Clear Calc 99.1 Estimated GFR > 60 Random Glucose 96 (60-115) mg/dL Calcium 8.8 (8.4-10.2) mg/dL Total Bilirubin 0.3 (0.0-1.0) mg/dL AST 16 (5-31) U/L ALT 13 (0-31) U/L Alkaline Phosphatase 83 (39-117) U/L Total Protein 7.0 (6.5-8.0) g/dL Albumin 4.0 (3.5-5.0) g/dL <HOUSTON Mcgee - Last Filed: 02/21/22 21:25> Lab Results 02/21/22 02/21/22 Range/Units 13:21 13:21 WBC 15.8 H (4.8-10.8) X10*3/uL RBC 4.68 (4.20-5.50) X10*6/uL Hgb 14.3 (12.0-16.0) g/dl Hct 42.7 (37.0-47.0) % MCV 91.2 (80.0-98.0) fL MCH 30.6 (27.0-33.0) pg MCHC 33.5 (31.0-35.0) g/dl RDW 14.1 (11.0-16.0) % Plt Count 262 (160-400) X10*3/uL MPV 9.4 (9.4-12.3) fL Immature Gran % (Auto) 0.3 (0.0-0.4) % Neut % (Auto) 73.5 H (45-73) % Lymph % (Auto) 18.6 L (20-40) % Wolfe % (Auto) 6.2 (2-11) % Eos % (Auto) 1.0 (0-4) % Baso % (Auto) 0.4 (0-2) % Lymph # (Auto) 2.9 (1.2-4.9) X10*3/uL Wolfe # (Auto) 1.0 (0.1-1.2) X10*3/uL Eos # (Auto) 0.2 (0.0-0.4) X10*3/uL Baso # (Auto) 0.1 (0.0-0.2) X10*3/uL Abs Immat Gran (auto) 0.05 H (0.00-0.03) X10*3/uL Absolute Neuts (auto) 11.6 H (2.0-8.3) x10*3/uL Absolute Nucleated RBC 0.000 (0.0-0.012) X10*3/uL Nucleated RBC % (auto) 0.0 (0.0-0.2) /100WBC Sodium 138 (135-145) mmol/L Potassium 4.4 (3.3-5.1) mmol/L Chloride 102 (96-108) mmol/L Carbon Dioxide 25 (22-29) mmol/L Anion Gap 15 (12-20) BUN 9 (9-16) mg/dL Creatinine 0.80 (0.5-1.4) mg/dL Estim Creat Clear Calc 99.1 Estimated GFR > 60 Random Glucose 96 (60-115) mg/dL Calcium 8.8 (8.4-10.2) mg/dL Total Bilirubin 0.3 (0.0-1.0) mg/dL AST 16 (5-31) U/L ALT 13 (0-31) U/L Alkaline Phosphatase 83 (39-117) U/L Total Protein 7.0 (6.5-8.0) g/dL Albumin 4.0 (3.5-5.0) g/dL <HOUSTON Rosenthal - Last Filed: 02/21/22 18:39> Discharge Plan Discharge Clinical Impression: Abscess <HOUSTON Mcgee - Last Filed: 02/21/22 21:25> Patient Disposition: Home, Self-Care <HOUSTON Mcgee - Last Filed: 02/21/22 21:25> Additional Instructions: you have an abscess to your genital area, it is not drainable at this time however may become drainable in the next couple days. Please apply warm compresses at home doxycycline and Keflex for antibiotics take as prescribed PLEASE BE RE-EVALUATED IN 2 DAYS IF HE DEVELOPS FEVER, PERSISTENT OR WORSENING PAIN, WORSENING REDNESS, POINTING, DRAINAGE, DIFFICULTY PEEING OR HAVING BOWEL MOVEMENTS RETURN TO THE EMERGENCY DEPARTMENT IMMEDIATELY <HOUSTON Mcgee - Last Filed: 02/21/22 21:25> Prescriptions: New cephalexin 500 mg capsule 500 mg PO QID 7 Days Qty: 28 0RF doxycycline hyclate 100 mg tablet 100 mg PO BID 7 Days Qty: 14 0RF ibuprofen 800 mg tablet 800 mg PO Q8H PRN (Reason: pain) Qty: 14 0RF acetaminophen [Tylenol Extra Strength] 500 mg tablet 500 mg PO Q6H PRN (Reason: fever or pain) Qty: 14 0RF No Action albuterol sulfate 90 mcg/actuation HFA aerosol inhaler 2 puff inhalation Q4-6H PRN (Reason: shortness of breath or wheezing) Qty: 6.7 0RF prednisone 20 mg tablet 40 mg PO DAILY 5 Days Qty: 10 0RF guaifenesin 600 mg tablet extended release 12hr 600 mg PO Q12H PRN (Reason: congestion) Qty: 14 0RF clonazepam [Klonopin] 1 mg Tablet 1 mg PO DAILY PRN (Reason: Anxiety) propranolol 40 mg Tablet 20 mg PO TID PRN (Reason: panic/anxiety) Rx Instructions: Take 1/2 tab three times a day as needed. Flovent 44 mcg/actuation Hfa Aerosol Inhaler 2 puff INHALATION BID albuterol sulfate 90 mcg/actuation Hfa Aerosol Inhaler 2 puff INHALATION Q6H PRN (Reason: Shortness Of Breath) aripiprazole 15 mg Tablet 7.5 mg PO DAILY Rx Instructions: take 1/2 tab daily. melatonin 10 mg Tablet 10 mg PO BEDTIME PRN (Reason: Insomnia) hydroxyzine HCl 50 mg tablet 50 mg PO TID PRN (Reason: anxiety, agitation) Qty: 90 0RF naltrexone 50 mg tablet 50 mg PO DAILY 30 Days Qty: 30 0RF Vivitrol 380 mg suspension,extended rel recon 380 mg IM Q4W 30 Days Qty: 1 5RF acamprosate 333 mg tablet,delayed release (DR/EC) 666 mg PO TID 30 Days Qty: 180 3RF <HOUSTON Mcgee - Last Filed: 02/21/22 21:25> Referrals: [facility] [place] [facility] [place] [facility] [Provider Group] (Call to establish and follow up with a General Surgeon. ) <HOUSTON Mcgee - Last Filed: 02/21/22 21:25> Interventions: ED Discharge Assessment Last Done: 02/21/22 18:49 <HOUSTON Mcgee - Last Filed: 02/21/22 21:25> Discharge Date/Time: 02/21/22 18:50 <HOUSTON Mcgee - Last Filed: 02/21/22 21:25>
[2022-02-21] MEDS: HYDROcodone Bit/Acetam 5/325 TABLET 1 TAB PO (15:20)
[2022-02-21 18:36] VITALS: BP 132/83; PULSE 98; RESP 16; TEMP 36.8; O2SAT 98
[2022-02-21] MEDS: cephALEXin 500 MG CAPSULE PO (18:46)
[2022-02-21] MEDS: Doxycycline Monohydrate 100 MG CAPSULE PO (18:46)
== END 2022-02-21 18:50 | disposition home or self-care (01) ==
PROVIDERS: Emergency Provider Student in an Organized Health Care Education/Training Program
DX: N76.4 Abscess of vulva (principal); F17.210 Nicotine dependence, cigarettes, uncomplicated; Z71.6 Tobacco abuse counseling; Z79.899 Other long term (current) drug therapy
CPT/HCPCS: 36415; 80053; 85025; 99283

== ENCOUNTER 2022-05-03 16:38 | Emergency (ER) | payer OTHER, SELFPAY ==
--- NOTE | ~2022-05-03 | CT_ITS ---
EXAMINATION: CT ABDOMEN AND PELVIS WITH CONTRAST CLINICAL INFORMATION: Left flank pain COMPARISON: 11/01/2021 ultrasound TECHNIQUE: Multidetector volumetric images were obtained from the superior aspect of the liver through the pubic symphysis following administration 85 mL of Omnipaque 350 intravenous contrast. Sagittal and coronal reformatted images were obtained on the technologist's workstation. Oral contrast: No This CT examination was performed using dose optimization techniques as appropriate, variously including the following: *Automated exposure control *Adjustment of mA and/or kV according to patient size (this includes techniques or standardized protocols for targeted exams where dose is matched to indication/reason for exam; i.e. extremities or head) *Use of iterative reconstruction technique DLP: 808 mGy-cm FINDINGS: LUNG BASES: The visualized lung bases are unremarkable. LIVER, GALLBLADDER, AND BILIARY TREE: Several scattered tiny nonenhancing low-density subcentimeter cysts favoring hepatic cysts. The liver is normal in size, shape, and attenuation. No enhancing focal hepatic lesion or biliary ductal dilatation is present. The gallbladder is unremarkable with no evidence of radiopaque gallstones, gallbladder wall thickening, or obvious pericholecystic inflammatory changes. PANCREAS: Unremarkable. SPLEEN: Unremarkable. ADRENAL GLANDS: Unremarkable. KIDNEYS AND URETERS: The kidneys are normal in size, shape, and attenuation. No hydronephrosis, hydroureter, or calculi seen. No perinephric stranding. BLADDER: Unremarkable. GASTROINTESTINAL TRACT: Small bowel loops proximally appears slightly prominent. Jejunal loops with thickened circumferentially which can be seen with entities such as sprue or nonspecific infectious inflammatory processes. Large bowel unremarkable. The appendix is unremarkable. ABDOMINAL WALL: No significant hernia is appreciated. LYMPH NODES: Normal. VASCULAR: Unremarkable. PELVIC VISCERA: Unremarkable. OSSEOUS STRUCTURES: Unremarkable. CT/CT abdomen pelvis w IV con IMPRESSION: 1. No stones or obstructive uropathy. 2. Nonspecific small bowel findings as above which can be seen with sprue or nonspecific infectious inflammatory processes. Fleischner guidelines were followed.
--- NOTE | 2022-05-03 17:07 | ED.ABDPAIN ---
HPI - Abdominal Pain General Chief Complaint: Urogenital-Female <Brianna Reagan CNP - Last Filed: 05/03/22 17:12> Stated Complaint: lower left quad pain <Brianna Reagan CNP - Last Filed: 05/03/22 17:12> Time Seen by Provider: 05/03/22 17:39 <Brianna Reagan CNP - Last Filed: 05/03/22 17:12> Source: patient <HOUSTON Chavez - Last Filed: 05/03/22 22:01> Mode of arrival: ambulatory <HOUSTON Chavez Last Filed: 05/03/22 22:01> Limitations: no limitations <HOUSTON Chavez Last Filed: 05/03/22 22:01> History of Present Illness HPI narrative: This is a 46-year-old female history of anxiety, depression, PTSD, alcohol abuse, UTI presenting to the emergency department complaints of left-sided flank pain at x3 days, patient tells me the pain is severe, intermittent in nature and sharp/stabbing. She tells me that she was hospitalized a few months ago for an infection in her kidney and it feels very similar to this. Patient tells me she is very uncomfortable. Patient denies fevers, chills, chest pain, shortness of breath, nausea, vomiting, abdominal pain, dysuria, urinary frequency, urgency, hematuria. Hx of kidney stones and pylo. <HOUSTON Chavez Last Filed: 05/03/22 22:01> Related Data Home Medications: Home Medications Medication Instructions Recorded Confirmed albuterol sulfate 90 mcg/actuation 2 puff inhalation Q6H PRN 04/22/21 04/22/21 aerosol inhaler Shortness Of Breath aripiprazole 15 mg tablet 7.5 mg PO DAILY 04/22/21 04/22/21 clonazepam 1 mg tablet (Klonopin) 1 mg PO DAILY PRN Anxiety 04/22/21 04/22/21 fluticasone propionate 44 2 puff inhalation BID 04/22/21 04/22/21 mcg/actuation HFA aerosol inhaler melatonin 10 mg tablet 10 mg PO BEDTIME PRN Insomnia 04/22/21 04/22/21 propranolol 40 mg tablet 20 mg PO TID PRN panic/anxiety 04/22/21 04/22/21 Previous Rx's Medication Instructions Recorded hydroxyzine HCl 50 mg tablet 50 mg PO TID PRN anxiety, 04/22/21 agitation #90 tabs naltrexone 50 mg tablet 50 mg PO DAILY 30 days #30 tabs 05/06/21 naltrexone microspheres 380 mg 380 mg IM Q4W 30 days #1 ea 10/28/21 intramuscular suspension,extended release (Vivitrol) acamprosate 333 mg tablet,delayed 666 mg PO TID 30 days #180 tabs 01/06/22 release albuterol sulfate 90 mcg/actuation 2 puff inhalation Q4-6H PRN 01/14/22 aerosol inhaler shortness of breath or wheezing #6.7 grams guaifenesin 600 mg tablet, 600 mg PO Q12H PRN congestion #14 01/14/22 extended release 12 hr tabs prednisone 20 mg tablet 40 mg PO DAILY 5 days #10 tabs 01/14/22 acetaminophen 500 mg tablet 500 mg PO Q6H PRN fever or pain 02/21/22 (Tylenol Extra Strength) #14 tabs cephalexin 500 mg capsule 500 mg PO QID 7 days #28 caps 02/21/22 doxycycline hyclate 100 mg tablet 100 mg PO BID 7 days #14 tabs 02/21/22 ibuprofen 800 mg tablet 800 mg PO Q8H PRN pain #14 tabs 02/21/22 ketorolac 10 mg tablet 10 mg PO TID PRN pain 5 days #15 05/03/22 tabs <Brianna Reagan CNP - Last Filed: 05/03/22 17:12> Allergies/Adverse Reactions: Allergies Allergy/AdvReac Type Severity Reaction Status Date / Time fluconazole [Diflucan] Allergy Unknown unk Verified 06/25/21 10:49 <Brianna Reagan CNP - Last Filed: 05/03/22 17:12> Review of Systems Review of Systems Constitutional : No Weight loss, No Fever, No Chills, + Fatigue, + Malaise ENT/Mouth : No sore throat, No Rhinorrhea Eyes: No Eye Pain, No Swelling, No Redness Cardiovascular : No Chest Pain, No SOB, No Dyspnea on Exertion, No Orthopnea, No Edema, No Palpitations Respiratory : No Cough, No Sputum, No Wheezing Gastrointestinal : No Nausea, No Vomiting, No Diarrhea, No Constipation, No abdominal Pain, No Hematochezia, No Melena Genitourinary : No Dysuria, No Urinary Frequency, No Hematuria, Musculoskeletal : No joint pain, No Myalgias, No Joint Swelling, + left flank pain Skin : No Skin Lesions, No rash Neuro : No Weakness, No Numbness, No Dizziness, No Headache Psych : No Anxiety/Panic, No Depression All other systems reviewed and are negative <HOUSTON Chavez - Last Filed: 05/03/22 22:01> Yes all other systems are reviewed and are negative <HOUSTON Chavez - Last Filed: 05/03/22 22:01> [facility] Past Medical History Attestation statement: The following information was validated with the patient. <HOUSTON Chavez - Last Filed: 05/03/22 22:01> Source: old records reviewed and nursing notes reviewed <HOUSTON Chavez - Last Filed: 05/03/22 22:01> Medical History: Medical History Anxiety <Brianna Reagan CNP - Last Filed: 05/03/22 17:12> Social History Social History: Social History Household Members: Children Alcohol intake: current Alcohol intake frequency: a few times a month Patient Tobacco Use Status: Current everyday Tobacco user Tobacco use type: Cigarette Cigarettes Per Day: 10 Years Smoked: Ari age 16 Advance Directives: No Advance Directives Information Provided: No Current occupational status: employed 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 <Brianna Reagan CNP - Last Filed: 05/03/22 17:12> Physical Exam ED Vital Signs: Vital Signs - 24 hr 05/03/22 17:08 05/03/22 18:00 05/03/22 19:40 Temperature 98.2 F 98.2 F 98.4 F Pulse Rate 79 74 78 Respiratory Rate 18 16 16 Blood Pressure 134/86 124/70 123/66 Pulse Oximetry 100 98 97 Oxygen Delivery Method Room Air Room Air Room Air BMI result Body Mass Index 36.0 <Brianna Reagan CNP - Last Filed: 05/03/22 17:12> Vital Signs - 24 hr 05/03/22 17:08 05/03/22 18:00 05/03/22 19:40 Temperature 98.2 F 98.2 F 98.4 F Pulse Rate 79 74 78 Respiratory Rate 18 16 16 Blood Pressure 134/86 124/70 123/66 Pulse Oximetry 100 98 97 Oxygen Delivery Method Room Air Room Air Room Air BMI result Body Mass Index 36.0 Vital signs stable <HOUSTON Chavez - Last Filed: 05/03/22 22:01> Appearance: Alert.? Oriented X3.? No acute distress.? Head: Normocephalic, atraumatic, no step-offs or deformities Eyes: Pupils equal, round and reactive to light.? CVS: Normal heart rate and rhythm.? Pulses normal.? Respiratory: No respiratory distress.? Breath sounds normal.? Abdomen: Soft and nontender.? Skin: Skin warm and dry.? Normal skin color.? Normal skin turgor.? Extremities: No lower extremity edema.? No calf ttp. 5/5 strength to bilateral upper and lower extremities Back: No midline tenderness, no C-spine tenderness, full range of motion, no CVA tenderness bilaterally Neuro: Oriented X 3.? No motor deficit.? No sensory deficit. CN 2-12 intact <HOUSTON Chavez - Last Filed: 05/03/22 22:01> Course Course Course Narrative: This is an RME: Additional HPI, ROS, PE not included below will be deferred to primary provider. Patient is a 46-year-old female presents emergency department for evaluation of left flank pain x 3 days. States 2 months ago hospitalized for kidney infection. States that last year she was referred to a manager access because left kidney was enlarged , missed the initial appointment and had to rescheduled. Denies fevers, chills, nausea, vomiting, dysuria, urinary frequency, hematuria. Plan: labs, urinalysis, CT ABD/ pelvis <Brianna Reagan CNP - Last Filed: 05/03/22 17:12> Reevaluation(s) Reevaluation #1: CBC with slight leukocystosis likley inflammatory unlikley bacterial, chemistry w/o acute findings, lactic negative, HCG negative, UA without infection. CT of the abdomen & pelvis with no acute findings. Patient tells me she is feeling much better now she tells me she is not sure this could just be back pain, she tells me she gets back pain often, denies urinary/bowel incontinence/retention, saddle paresthesias, ambulatory with steady gait with normal coordination. Patient appears well. Again tells me she feels much better will give her Urology follow-up will discharge home with Toradol. Educated patient on diagnosis and treatment plan, answered all question, patient verbalizes understanding. At this time patient will be discharged home, advised to return with new or worsening symptoms. Educated on worrisome signs and symptoms and when to return. At this time I feel comfortable discharge home. <HOUSTON Chavez - Last Filed: 05/03/22 22:01> Time: 21:59 <HOUSTON Chavez - Last Filed: 05/03/22 22:01> Medical Decision Making Medical Decision Making MDM Narrative: [id number] 46-year-old female presents to the emergency department with 3 days of intermittent, sharp severe left-sided flank pain. Denies urinary complaints. Denies fevers and chills. Physical exam benign Likely pyelo vs musculoskeletal vs kidney stone in nature. Will rule out UTI, cystitis, no signs of acute abdomen, epidural abscess Plan at this time labs, imaging, urine. <HOUSTON Chavez - Last Filed: 05/03/22 22:01> Differential Diagnosis Differential Diagnoses: The differential diagnosis associated with the presentation includes <HOUSTON Chavez Last Filed: 05/03/22 22:01> Likely pyelo vs musculoskeletal vs kidney stone in nature. Will rule out UTI, cystitis, no signs of acute abdomen, epidural abscess <HOUSTON Chavez Last Filed: 05/03/22 22:01> Admission/Observation Consideration of admission/observation: Escalation of care including admission/observation considered <HOUSTON Chavez Last Filed: 05/03/22 22:01> Unlikely <HOUSTON Chavez Last Filed: 05/03/22 22:01> Lab Data Result Diagrams: 05/03/22 17:52 05/03/22 17:52 <Brianna Moralesangelo Reagan, SUPPLY TEACHER - Last Filed: 05/03/22 17:12> Labs: Lab Results 05/03/22 05/03/22 05/03/22 Range/Units 17:52 17:52 17:52 WBC 15.1 H (4.8-10.8) X10*3/uL RBC 4.75 (4.20-5.50) X10*6/uL Hgb 14.5 (12.0-16.0) g/dl Hct 42.7 (37.0-47.0) % MCV 89.9 (80.0-98.0) fL MCH 30.5 (27.0-33.0) pg MCHC 34.0 (31.0-35.0) g/dl RDW 14.3 (11.0-16.0) % Plt Count 290 (160-400) X10*3/uL MPV 9.3 L (9.4-12.3) fL Immature Gran % (Auto) 0.3 (0.0-0.4) % Neut % (Auto) 69.7 (45-73) % Lymph % (Auto) 22.1 (20-40) % Phillips % (Auto) 6.7 (2-11) % Eos % (Auto) 0.7 (0-4) % Baso % (Auto) 0.5 (0-2) % Lymph # (Auto) 3.3 (1.2-4.9) X10*3/uL Phillips # (Auto) 1.0 (0.1-1.2) X10*3/uL Eos # (Auto) 0.1 (0.0-0.4) X10*3/uL Baso # (Auto) 0.1 (0.0-0.2) X10*3/uL Abs Immat Gran (auto) 0.05 H (0.00-0.03) X10*3/uL Absolute Neuts (auto) 10.5 H (2.0-8.3) x10*3/uL Absolute Nucleated RBC 0.000 (0.0-0.012) X10*3/uL Nucleated RBC % (auto) 0.0 (0.0-0.2) /100WBC Sodium 138 (135-145) mmol/L Potassium 4.1 (3.3-5.1) mmol/L Chloride 104 (96-108) mmol/L Carbon Dioxide 24 (22-29) mmol/L Anion Gap 14 (12-20) BUN 12 (9-16) mg/dL Creatinine 0.74 (0.5-1.4) mg/dL Estim Creat Clear Calc 108.5 Estimated GFR > 60 Random Glucose 81 (60-115) mg/dL Lactic Acid (0.5-2.0) mmol/L Calcium 9.1 (8.4-10.2) mg/dL Total Bilirubin 0.5 (0.0-1.0) mg/dL AST 15 (5-31) U/L ALT 12 (0-31) U/L Alkaline Phosphatase 80 (39-117) U/L Total Protein 6.9 (6.5-8.0) g/dL Albumin 4.0 (3.5-5.0) g/dL Beta HCG, Quant < 2 mIU/mL Urine Color Yellow Urine Appearance Clear Urine pH 6.5 (5.0-9.0) Ur Specific Dinosaur 1.025 (1.005-1.025) Urine Protein Negative (Neg-Trace) mg/dL Urine Glucose (UA) Negative (Negative) mg/dL Urine Ketones Trace (Negative) mg/dL Urine Blood Trace H (Negative) Urine Nitrite Negative (Negative) Ur Leukocyte Esterase Negative (Negative) Urine RBC 6-10 H (0-2) /HPF Urine WBC 0-5 (0-5) /HPF Ur Squamous Epith Cells 0-2 (0-2) /HPF Urine Bacteria None Seen (None Seen) Hyaline Casts 0-2 (0-2) /LPF Urine Test (NEGATIVE) 05/03/22 05/03/22 Range/Units 17:52 18:26 WBC (4.8-10.8) X10*3/uL RBC (4.20-5.50) X10*6/uL Hgb (12.0-16.0) g/dl Hct (37.0-47.0) % MCV (80.0-98.0) fL MCH (27.0-33.0) pg MCHC (31.0-35.0) g/dl RDW (11.0-16.0) % Plt Count (160-400) X10*3/uL MPV (9.4-12.3) fL Immature Gran % (Auto) (0.0-0.4) % Neut % (Auto) (45-73) % Lymph % (Auto) (20-40) % Phillips % (Auto) (2-11) % Eos % (Auto) (0-4) % Baso % (Auto) (0-2) % Lymph # (Auto) (1.2-4.9) X10*3/uL Phillips # (Auto) (0.1-1.2) X10*3/uL Eos # (Auto) (0.0-0.4) X10*3/uL Baso # (Auto) (0.0-0.2) X10*3/uL Abs Immat Gran (auto) (0.00-0.03) X10*3/uL Absolute Neuts (auto) (2.0-8.3) x10*3/uL Absolute Nucleated RBC (0.0-0.012) X10*3/uL Nucleated RBC % (auto) (0.0-0.2) /100WBC Sodium (135-145) mmol/L Potassium (3.3-5.1) mmol/L Chloride (96-108) mmol/L Carbon Dioxide (22-29) mmol/L Anion Gap (12-20) BUN (9-16) mg/dL Creatinine (0.5-1.4) mg/dL Estim Creat Clear Calc Estimated GFR Random Glucose (60-115) mg/dL Lactic Acid 0.9 (0.5-2.0) mmol/L Calcium (8.4-10.2) mg/dL Total Bilirubin (0.0-1.0) mg/dL AST (5-31) U/L ALT (0-31) U/L Alkaline Phosphatase (39-117) U/L Total Protein (6.5-8.0) g/dL Albumin (3.5-5.0) g/dL Beta HCG, Quant mIU/mL Urine Color Urine Appearance Urine pH (5.0-9.0) Ur Specific Dinosaur (1.005-1.025) Urine Protein (Neg-Trace) mg/dL Urine Glucose (UA) (Negative) mg/dL Urine Ketones (Negative) mg/dL Urine Blood (Negative) Urine Nitrite (Negative) Ur Leukocyte Esterase (Negative) Urine RBC (0-2) /HPF Urine WBC (0-5) /HPF Ur Squamous Epith Cells (0-2) /HPF Urine Bacteria (None Seen) Hyaline Casts (0-2) /LPF Urine Test NEGATIVE (NEGATIVE) <Brianna Reagan, SUPPLY TEACHER - Last Filed: 05/03/22 17:12> Lab Results 05/03/22 05/03/22 05/03/22 Range/Units 17:52 17:52 17:52 WBC 15.1 H (4.8-10.8) X10*3/uL RBC 4.75 (4.20-5.50) X10*6/uL Hgb 14.5 (12.0-16.0) g/dl Hct 42.7 (37.0-47.0) % MCV 89.9 (80.0-98.0) fL MCH 30.5 (27.0-33.0) pg MCHC 34.0 (31.0-35.0) g/dl RDW 14.3 (11.0-16.0) % Plt Count 290 (160-400) X10*3/uL MPV 9.3 L (9.4-12.3) fL Immature Gran % (Auto) 0.3 (0.0-0.4) % Neut % (Auto) 69.7 (45-73) % Lymph % (Auto) 22.1 (20-40) % Phillips % (Auto) 6.7 (2-11) % Eos % (Auto) 0.7 (0-4) % Baso % (Auto) 0.5 (0-2) % Lymph # (Auto) 3.3 (1.2-4.9) X10*3/uL Phillips # (Auto) 1.0 (0.1-1.2) X10*3/uL Eos # (Auto) 0.1 (0.0-0.4) X10*3/uL Baso # (Auto) 0.1 (0.0-0.2) X10*3/uL Abs Immat Gran (auto) 0.05 H (0.00-0.03) X10*3/uL Absolute Neuts (auto) 10.5 H (2.0-8.3) x10*3/uL Absolute Nucleated RBC 0.000 (0.0-0.012) X10*3/uL Nucleated RBC % (auto) 0.0 (0.0-0.2) /100WBC Sodium 138 (135-145) mmol/L Potassium 4.1 (3.3-5.1) mmol/L Chloride 104 (96-108) mmol/L Carbon Dioxide 24 (22-29) mmol/L Anion Gap 14 (12-20) BUN 12 (9-16) mg/dL Creatinine 0.74 (0.5-1.4) mg/dL Estim Creat Clear Calc 108.5 Estimated GFR > 60 Random Glucose 81 (60-115) mg/dL Lactic Acid (0.5-2.0) mmol/L Calcium 9.1 (8.4-10.2) mg/dL Total Bilirubin 0.5 (0.0-1.0) mg/dL AST 15 (5-31) U/L ALT 12 (0-31) U/L Alkaline Phosphatase 80 (39-117) U/L Total Protein 6.9 (6.5-8.0) g/dL Albumin 4.0 (3.5-5.0) g/dL Beta HCG, Quant < 2 mIU/mL Urine Color Yellow Urine Appearance Clear Urine pH 6.5 (5.0-9.0) Ur Specific Dinosaur 1.025 (1.005-1.025) Urine Protein Negative (Neg-Trace) mg/dL Urine Glucose (UA) Negative (Negative) mg/dL Urine Ketones Trace (Negative) mg/dL Urine Blood Trace H (Negative) Urine Nitrite Negative (Negative) Ur Leukocyte Esterase Negative (Negative) Urine RBC 6-10 H (0-2) /HPF Urine WBC 0-5 (0-5) /HPF Ur Squamous Epith Cells 0-2 (0-2) /HPF Urine Bacteria None Seen (None Seen) Hyaline Casts 0-2 (0-2) /LPF Urine Test (NEGATIVE) 05/03/22 05/03/22 Range/Units 17:52 18:26 WBC (4.8-10.8) X10*3/uL RBC (4.20-5.50) X10*6/uL Hgb (12.0-16.0) g/dl Hct (37.0-47.0) % MCV (80.0-98.0) fL MCH (27.0-33.0) pg MCHC (31.0-35.0) g/dl RDW (11.0-16.0) % Plt Count (160-400) X10*3/uL MPV (9.4-12.3) fL Immature Gran % (Auto) (0.0-0.4) % Neut % (Auto) (45-73) % Lymph % (Auto) (20-40) % Phillips % (Auto) (2-11) % Eos % (Auto) (0-4) % Baso % (Auto) (0-2) % Lymph # (Auto) (1.2-4.9) X10*3/uL Phillips # (Auto) (0.1-1.2) X10*3/uL Eos # (Auto) (0.0-0.4) X10*3/uL Baso # (Auto) (0.0-0.2) X10*3/uL Abs Immat Gran (auto) (0.00-0.03) X10*3/uL Absolute Neuts (auto) (2.0-8.3) x10*3/uL Absolute Nucleated RBC (0.0-0.012) X10*3/uL Nucleated RBC % (auto) (0.0-0.2) /100WBC Sodium (135-145) mmol/L Potassium (3.3-5.1) mmol/L Chloride (96-108) mmol/L Carbon Dioxide (22-29) mmol/L Anion Gap (12-20) BUN (9-16) mg/dL Creatinine (0.5-1.4) mg/dL Estim Creat Clear Calc Estimated GFR Random Glucose (60-115) mg/dL Lactic Acid 0.9 (0.5-2.0) mmol/L Calcium (8.4-10.2) mg/dL Total Bilirubin (0.0-1.0) mg/dL AST (5-31) U/L ALT (0-31) U/L Alkaline Phosphatase (39-117) U/L Total Protein (6.5-8.0) g/dL Albumin (3.5-5.0) g/dL Beta HCG, Quant mIU/mL Urine Color Urine Appearance Urine pH (5.0-9.0) Ur Specific Dinosaur (1.005-1.025) Urine Protein (Neg-Trace) mg/dL Urine Glucose (UA) (Negative) mg/dL Urine Ketones (Negative) mg/dL Urine Blood (Negative) Urine Nitrite (Negative) Ur Leukocyte Esterase (Negative) Urine RBC (0-2) /HPF Urine WBC (0-5) /HPF Ur Squamous Epith Cells (0-2) /HPF Urine Bacteria (None Seen) Hyaline Casts (0-2) /LPF Urine Test NEGATIVE (NEGATIVE) <HOUSTON Chavez - Last Filed: 05/03/22 22:01> Medications Administered Discontinued Medications Generic Name Dose Route Start Last Admin Trade Name Freq PRN Reason Stop Dose Admin Iohexol 100 ml 05/03/22 18:50 05/03/22 18:51 Iohexol 350 Mg/Ml 100 Ml Infus..Btl IV 05/03/22 18:51 85 ml ONCE ONE Administration Ketorolac Tromethamine 30 mg 05/03/22 17:44 05/03/22 18:35 Ketorolac Tromethamine 15 Mg/Ml Vial IVPUSH 05/03/22 17:45 30 mg ONCE ONE Administration <Brianna Reagan CNP - Last Filed: 05/03/22 17:12> Medications Administered Discontinued Medications Generic Name Dose Route Start Last Admin Trade Name Freq PRN Reason Stop Dose Admin Iohexol 100 ml 05/03/22 18:50 05/03/22 18:51 Iohexol 350 Mg/Ml 100 Ml Infus..Btl IV 05/03/22 18:51 85 ml ONCE ONE Administration Ketorolac Tromethamine 30 mg 05/03/22 17:44 05/03/22 18:35 Ketorolac Tromethamine 15 Mg/Ml Vial IVPUSH 05/03/22 17:45 30 mg ONCE ONE Administration <HOUSTON Chavez - Last Filed: 05/03/22 22:01> Critical Care Time Critical Care Time Critical Care Time: No <HOUSTON Chavez - Last Filed: 05/03/22 22:01> Discharge Plan Discharge Clinical Impression: Left flank pain <Brianna Reagan CNP - Last Filed: 05/03/22 17:12> Patient Disposition: Home, Self-Care <Brianna De Jesus KELLY Reagan - Last Filed: 05/03/22 17:12> Instructions: Flank Pain (ED) <Brianna Reagan CNP - Last Filed: 05/03/22 17:12> Additional Instructions: Take your medications as prescribed. If you were prescribed antibiotics today, it is important that you take your medication to their entirety, do not skip any doses, do not finish them early. Follow-up with your primary care provider this week. Return to the emergency department with new or worsening symptoms. Such as fevers, chills, chest pain, shortness of breath, nausea, vomiting, dizziness, headache, vision changes, lethargy In case of emergency call 911 ?CT/CT abdomen pelvis w IV con IMPRESSION: 1.? No stones or obstructive uropathy. 2.? Nonspecific small bowel findings as above which can be seen with sprue or nonspecific infectious inflammatory processes. ? Fleischner guidelines were followed. <Brianna Reagan CNP - Last Filed: 05/03/22 17:12> Prescriptions: New ketorolac 10 mg tablet 10 mg PO TID PRN (Reason: pain) 5 Days Qty: 15 0RF Rx Instructions: Tolerated IM in the department No Action albuterol sulfate 90 mcg/actuation HFA aerosol inhaler 2 puff inhalation Q4-6H PRN (Reason: shortness of breath or wheezing) Qty: 6.7 0RF prednisone 20 mg tablet 40 mg PO DAILY 5 Days Qty: 10 0RF guaifenesin 600 mg tablet extended release 12hr 600 mg PO Q12H PRN (Reason: congestion) Qty: 14 0RF clonazepam [Klonopin] 1 mg Tablet 1 mg PO DAILY PRN (Reason: Anxiety) propranolol 40 mg Tablet 20 mg PO TID PRN (Reason: panic/anxiety) Rx Instructions: Take 1/2 tab three times a day as needed. Flovent 44 mcg/actuation Hfa Aerosol Inhaler 2 puff INHALATION BID albuterol sulfate 90 mcg/actuation Hfa Aerosol Inhaler 2 puff INHALATION Q6H PRN (Reason: Shortness Of Breath) aripiprazole 15 mg Tablet 7.5 mg PO DAILY Rx Instructions: take 1/2 tab daily. melatonin 10 mg Tablet 10 mg PO BEDTIME PRN (Reason: Insomnia) hydroxyzine HCl 50 mg tablet 50 mg PO TID PRN (Reason: anxiety, agitation) Qty: 90 0RF naltrexone 50 mg tablet 50 mg PO DAILY 30 Days Qty: 30 0RF cephalexin 500 mg capsule 500 mg PO QID 7 Days Qty: 28 0RF doxycycline hyclate 100 mg tablet 100 mg PO BID 7 Days Qty: 14 0RF ibuprofen 800 mg tablet 800 mg PO Q8H PRN (Reason: pain) Qty: 14 0RF acetaminophen [Tylenol Extra Strength] 500 mg tablet 500 mg PO Q6H PRN (Reason: fever or pain) Qty: 14 0RF Vivitrol 380 mg suspension,extended rel recon 380 mg IM Q4W 30 Days Qty: 1 5RF acamprosate 333 mg tablet,delayed release (DR/EC) 666 mg PO TID 30 Days Qty: 180 3RF <Brianna Reagan CNP - Last Filed: 05/03/22 17:12> Referrals: [facility] [place] Group] - 2 days ED Physician,Generic [Physician] - 2 days <Brianna Reagan CNP - Last Filed: 05/03/22 17:12> Stand Alone Forms: Work/School Release <Brianna Reagan CNP - Last Filed: 05/03/22 17:12>
[2022-05-03 17:08] VITALS: BP 134/86; PULSE 79; RESP 18; TEMP 36.8; O2SAT 100; BMI 36.0
[2022-05-03 18:00] VITALS: BP 124/70; PULSE 74; RESP 16; TEMP 36.8; O2SAT 98
--- NOTE | 2022-05-03 18:00 | MHC.EDTECH ---
this pct assumed care of patient at 1800 ,vitals sign taken ,rn in room putting in iv .
[2022-05-03 18:04] LABS: MANUAL DIFF FLAG NO
[2022-05-03 18:05] LABS: Basophils Absolute Auto 0.1 X10*3/uL (0.0-0.2); Basophils Percent Auto 0.5 % (0-2); Eosinophils Absolute Auto 0.1 X10*3/uL (0.0-0.4); Eosinophils Percent Auto 0.7 % (0-4); Hematocrit 42.7 % (37.0-47.0); Hemoglobin 14.5 g/dl (12.0-16.0); Imm Gran Abs Auto 0.05 X10*3/uL (0.00-0.03); Imm Gran Pct Auto 0.3 % (0.0-0.4); Lymphocytes Absolute Auto 3.3 X10*3/uL (1.2-4.9); Lymphocytes Percent Auto 22.1 % (20-40); Mean Corpuscular Hemoglobin 30.5 pg (27.0-33.0); Mean Corpuscular Volume 89.9 fL (80.0-98.0); Mean Platelet Volume 9.3 fL (9.4-12.3); Monocytes Percent Auto 6.7 % (2-11); Neutrophils Absolute Auto 10.5 x10*3/uL (2.0-8.3); Neutrophils Percent Auto 69.7 % (45-73); Platelet Count 290 X10*3/uL (160-400); Red Blood Count 4.75 X10*6/uL (4.20-5.50); Red Cell Distribution Width 14.3 % (11.0-16.0); White Blood Count 15.1 X10*3/uL (4.8-10.8)
[2022-05-03 18:07] LABS: Appearance Urine Clear; Color Urine Yellow; Glucose Urine UA Negative (Negative); Leukocyte Esterase Urine Negative (Negative); Nitrite Urine Negative (Negative); PH 6.5 (5.0-9.0); Specific Gravity - Urine 1.025 (1.005-1.025); UMIC TRIGGER UACC YES; Urine Blood Trace (Negative); Urine Ketones Trace mg/dL (Negative); Urine Protein Negative (Neg-Trace)
[2022-05-03 18:09] LABS: Bacteria Urine None Seen (None Seen); Hyaline Casts Urine 0-2 /LPF (0-2); Squamous Epithelial Cell Urine 0-2 /HPF (0-2); WBC Urine 0-5 /HPF (0-5)
[2022-05-03 18:11] LABS: UPreg QC Valid YES; Urine Pregnancy NEGATIVE (NEGATIVE)
[2022-05-03 18:26] LABS: Alanine Aminotransferase 12 U/L (0-31); Alkaline Phosphatase 80 U/L (39-117); Anion Gap 14 (12-20); Aspartate Amino Transferase 15 U/L (5-31); Bilirubin Total 0.5 mg/dL (0.0-1.0); Blood Urea Nitrogen 12 mg/dL (9-16); Calcium 9.1 mg/dL (8.4-10.2); Carbon Dioxide 24 mmol/L (22-29); Chloride 104 mmol/L (96-108); Creatinine Clr Calc Pharmacy 108.5; Estimated Glomerular Filt Rate > 60; Glucose Random 81 mg/dL (60-115); HCG Quantitative < 2 mIU/mL; Potassium 4.1 mmol/L (3.3-5.1); Sodium 138 mmol/L (135-145); Total Protein 6.9 g/dL (6.5-8.0)
[2022-05-03] MEDS: Ketorolac Tromethamine 15 MG/ML VIAL 30 MG IVPUSH (18:35)
[2022-05-03 18:42] LABS: Lactic Acid 0.9 mmol/L (0.5-2.0)
[2022-05-03] MEDS: iohexoL 350 MG/ML 100 ML INFUS..BTL IV (18:51)
[2022-05-03 19:40] VITALS: BP 123/66; PULSE 78; RESP 16; TEMP 36.9; O2SAT 97
[2022-05-03 21:55] VITALS: BP 118/71; PULSE 77; RESP 16; TEMP 36.9; O2SAT 99
--- NOTE | 2022-05-03 22:00 | PC.NURSE ---
IV line removed. Pt tolerated well. Discharge instructions reviewed with pt. Pt verbalizes understanding.
[2022-05-03 22:33] LABS: Lipase 21 U/L (8-78)
== END 2022-05-03 22:01 | disposition home or self-care (01) ==
PROVIDERS: Nurse Practitioner Family; Physician Assistant; Emergency Provider Internal Medicine
DX: R10.9 Unspecified abdominal pain (principal); Z87.440 Personal history of urinary (tract) infections; Z79.899 Other long term (current) drug therapy; F17.210 Nicotine dependence, cigarettes, uncomplicated
CPT/HCPCS: 36415; 74177; 80053; 81001; 81025; 83605; 83690; 84702; 85025; 87040; 96374; 99284; J1885; Q9967

== ENCOUNTER 2022-05-11 20:41 | Emergency (ER) | payer OTHER, SELFPAY ==
[2022-05-11 20:47] VITALS: BP 147/106; PULSE 76; RESP 20; TEMP 36.2; O2SAT 97; BMI 36.0
== END 2022-05-11 21:50 | disposition left against medical advice (07) ==
LOC: HO.ED 21:45
PROVIDERS: Emergency Provider Emergency Medicine
DX: R10.9 Unspecified abdominal pain (principal)
CPT/HCPCS: 99281

== ENCOUNTER 2022-08-27 20:28 | Emergency (ER) | payer OTHER, SELFPAY ==
[2022-08-27 20:32] VITALS: BP 151/99; PULSE 87; RESP 18; TEMP 37.3; O2SAT 96; BMI 36.0
--- NOTE | 2022-08-27 20:33 | ED_ITS ---
HPI - Neck Pain/Injury General Chief Complaint: Neck Pain/Injury Stated Complaint: pain on left side of neck Time Seen by Provider: 08/27/22 20:38 Source: patient Mode of arrival: ambulatory Limitations: no limitations History of Present Illness HPI Narrative: 47 yo female with history of depression/anxiety, etoh abuse, PTSD, who presents to the ER for evaluation of non- traumatic left sided neck pain for the last 1 week. She states she woke up with the pain and it has gotten worse today. Worse with palpation and movement of the head to the right. No ear pain, swelling, cervical spinal pain, fever, chills, UE weakness, numbness, or dental pain. MD complaint: neck pain Onset (ago): week(s) (1) Place: home Radiation: left lateral Severity: moderate Severity scale (1-10): 6 Quality: stabbing and aching Duration: constant and progressively worsening Relieving factors: none Exacerbating factors: movement of neck Context: unknown Associated symptoms: none Treatments prior to arrival: none Related Data Home Medications Medication Instructions Recorded Confirmed albuterol sulfate 90 mcg/actuation 2 puff inhalation Q6H PRN 04/22/21 04/22/21 aerosol inhaler Shortness Of Breath aripiprazole 15 mg tablet 7.5 mg PO DAILY 04/22/21 04/22/21 clonazepam 1 mg tablet (Klonopin) 1 mg PO DAILY PRN Anxiety 04/22/21 04/22/21 fluticasone propionate 44 2 puff inhalation BID 04/22/21 04/22/21 mcg/actuation HFA aerosol inhaler melatonin 10 mg tablet 10 mg PO BEDTIME PRN Insomnia 04/22/21 04/22/21 propranolol 40 mg tablet 20 mg PO TID PRN panic/anxiety 04/22/21 04/22/21 Previous Rx's Medication Instructions Recorded hydroxyzine HCl 50 mg tablet 50 mg PO TID PRN anxiety, 04/22/21 agitation #90 tabs naltrexone 50 mg tablet 50 mg PO DAILY 30 days #30 tabs 05/06/21 naltrexone microspheres 380 mg 380 mg IM Q4W 30 days #1 ea 10/28/21 intramuscular suspension,extended release (Vivitrol) acamprosate 333 mg tablet,delayed 666 mg PO TID 30 days #180 tabs 01/06/22 release albuterol sulfate 90 mcg/actuation 2 puff inhalation Q4-6H PRN 01/14/22 aerosol inhaler shortness of breath or wheezing #6.7 grams guaifenesin 600 mg tablet, 600 mg PO Q12H PRN congestion #14 01/14/22 extended release 12 hr tabs prednisone 20 mg tablet 40 mg PO DAILY 5 days #10 tabs 01/14/22 acetaminophen 500 mg tablet 500 mg PO Q6H PRN fever or pain 02/21/22 (Tylenol Extra Strength) #14 tabs cephalexin 500 mg capsule 500 mg PO QID 7 days #28 caps 02/21/22 doxycycline hyclate 100 mg tablet 100 mg PO BID 7 days #14 tabs 02/21/22 ibuprofen 800 mg tablet 800 mg PO Q8H PRN pain #14 tabs 02/21/22 ketorolac 10 mg tablet 10 mg PO TID PRN pain 5 days #15 05/03/22 tabs cyclobenzaprine 10 mg tablet 10 mg PO TID PRN muscle spasm #14 08/27/22 tabs ibuprofen 600 mg tablet 600 mg PO Q8H PRN pain #14 tabs 08/27/22 lidocaine 5 % topical patch 1 patch topical DAILY #15 ea 08/27/22 Allergies Allergy/AdvReac Type Severity Reaction Status Date / Time fluconazole [Diflucan] Allergy Unknown unk Verified 06/25/21 10:49 Review of Systems Review of Systems: Yes all other systems are reviewed and are negative [facility] Past Medical History Medical History Anxiety Social History Social History Household Members: Children Alcohol intake: current Alcohol intake frequency: a few times a month Patient Tobacco Use Status: Current everyday Tobacco user Tobacco use type: Cigarette Cigarettes Per Day: 10 Years Smoked: Ari age 16 Current occupational status: employed 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 Oriented X3. No acute distress. Head: normocephalic, atraumatic. Eyes: Pupils equal, round and reactive to light. ENT: Pharynx normal. No tonsillar swelling or exudate. no mastoid tenderness. normal TMs bilaterally. Neck: Normal inspection, no swelling. left SCM with proximal tenderness and palpable spasm. No thyromegaly. No c-spine tenderness. pain w/ head rotation to the right. CVS: Normal heart rate and rhythm. Pulses normal. Respiratory: No respiratory distress. Breath sounds normal. Skin: Skin warm and dry. Normal skin color. Normal skin turgor. No rashes. Extremities: No lower extremity edema. No joint swelling. Neuro/psych: Oriented X 3. No motor deficit. No sensory deficit. CN II-XII intact. Normal speech and cognition. Medical Decision Making Medical Decision Making MDM Narrative: 47 yo female presenting to the ER for evaluation of nontraumatic left sided neck pain x1 week. No headache. Neurologically intact. Exam and clinical presentation c/w muscle tenderness and spasm. Will treat with muscle relaxers, NSAIDs, lidoderm. stable for d/c home. dx and tx d/w patient, all questions were answered. encouraged to f/u with PCP. Differential Diagnosis Differential Diagnoses: The differential diagnosis associated with the presen tation includes cervical strain, cervical spasm, torticollis, mastoiditis, dental pain referred, doubt dissection External Record Review External record reviewed: Outpatient record and Prior outpatient labs Prescription Management I considered prescription management with: Pain Medication and Other (muscle relaxer) Critical Care Time Critical Care Time Critical Care Time: No Discharge Plan Discharge Clinical Impression: Cervical muscle strain Patient Disposition: Home, Self-Care Instructions: Cervical Strain (DC) Additional Instructions: Your pain is most likely due to muscle strain and spasm. Work on gentle range of motion and gentle massage on the left side of your next. Use heat several times per day for 20 minutes at a time, several times per day. Take medications as prescribed to help with pain and discomfort. Follow up with your Primary Care Doctor as needed If you develop new or worsening symptoms call 911 or come back to the ER for further evaluation. Prescriptions: New cyclobenzaprine 10 mg tablet 10 mg PO TID PRN (Reason: muscle spasm) Qty: 14 0RF ibuprofen 600 mg tablet 600 mg PO Q8H PRN (Reason: pain) Qty: 14 0RF lidocaine 5 % adhesive patch,medicated 1 patch topical DAILY Qty: 15 0RF Rx Instructions: leave on most painful area for up to 12 hrs No Action albuterol sulfate 90 mcg/actuation HFA aerosol inhaler 2 puff inhalation Q4-6H PRN (Reason: shortness of breath or wheezing) Qty: 6.7 0RF prednisone 20 mg tablet 40 mg PO DAILY 5 Days Qty: 10 0RF guaifenesin 600 mg tablet extended release 12hr 600 mg PO Q12H PRN (Reason: congestion) Qty: 14 0RF clonazepam [Klonopin] 1 mg Tablet 1 mg PO DAILY PRN (Reason: Anxiety) propranolol 40 mg Tablet 20 mg PO TID PRN (Reason: panic/anxiety) Rx Instructions: Take 1/2 tab three times a day as needed. Flovent 44 mcg/actuation Hfa Aerosol Inhaler 2 puff INHALATION BID albuterol sulfate 90 mcg/actuation Hfa Aerosol Inhaler 2 puff INHALATION Q6H PRN (Reason: Shortness Of Breath) aripiprazole 15 mg Tablet 7.5 mg PO DAILY Rx Instructions: take 1/2 tab daily. melatonin 10 mg Tablet 10 mg PO BEDTIME PRN (Reason: Insomnia) hydroxyzine HCl 50 mg tablet 50 mg PO TID PRN (Reason: anxiety, agitation) Qty: 90 0RF naltrexone 50 mg tablet 50 mg PO DAILY 30 Days Qty: 30 0RF cephalexin 500 mg capsule 500 mg PO QID 7 Days Qty: 28 0RF doxycycline hyclate 100 mg tablet 100 mg PO BID 7 Days Qty: 14 0RF ibuprofen 800 mg tablet 800 mg PO Q8H PRN (Reason: pain) Qty: 14 0RF acetaminophen [Tylenol Extra Strength] 500 mg tablet 500 mg PO Q6H PRN (Reason: fever or pain) Qty: 14 0RF ketorolac 10 mg tablet 10 mg PO TID PRN (Reason: pain) 5 Days Qty: 15 0RF Rx Instructions: Tolerated IM in the department Vivitrol 380 mg suspension,extended rel recon 380 mg IM Q4W 30 Days Qty: 1 5RF acamprosate 333 mg tablet,delayed release (DR/EC) 666 mg PO TID 30 Days Qty: 180 3RF
== END 2022-08-27 21:09 | disposition home or self-care (01) ==
PROVIDERS: Emergency Provider Emergency Medicine
DX: M54.2 Cervicalgia (principal); F17.200 Nicotine dependence, unspecified, uncomplicated; Z71.6 Tobacco abuse counseling; Z79.899 Other long term (current) drug therapy
CPT/HCPCS: 99282; 99283

== ENCOUNTER 2022-10-20 22:48 | Emergency (ER) | payer OTHER, SELFPAY ==
--- NOTE | ~2022-10-20 | XR_ITS ---
EXAMINATION: XR KNEE, LEFT CLINICAL INFORMATION: Arthritis, swollen COMPARISON: 08/24/2020 TECHNIQUE: Four views of the left knee. FINDINGS: Osseous alignment is anatomic. There is mild narrowing of the medial joint space. No acute fracture is seen. Moderate joint effusion is noted. XR/XR knee LT 3V IMPRESSION: Moderate joint effusion. Mild narrowing of the medial joint space.
[2022-10-20 22:50] VITALS: BP 161/94; PULSE 118; RESP 18; TEMP 36.4; O2SAT 98; BMI 36.9
--- NOTE | 2022-10-21 00:14 | ED.EXTPRO ---
HPI - Extremity Problem General Chief complaint: Extremity Injury, Lower Stated complaint: left swollen knee Time Seen by Provider: 10/21/22 00:14 Source: patient Mode of arrival: ambulatory Limitations: no limitations History of Present Illness HPI Narrative: Patient with history of severe arthritis of the knees for last 10 years has not seen any orthopedics yet for last few days it has been getting worse in the left knee with increased swelling for last 4 days no recent trauma Related Data Home Medications Medication Instructions Recorded Confirmed albuterol sulfate 90 mcg/actuation 2 puff inhalation Q6H PRN 04/22/21 04/22/21 aerosol inhaler Shortness Of Breath aripiprazole 15 mg tablet 7.5 mg PO DAILY 04/22/21 04/22/21 clonazepam 1 mg tablet (Klonopin) 1 mg PO DAILY PRN Anxiety 04/22/21 04/22/21 fluticasone propionate 44 2 puff inhalation BID 04/22/21 04/22/21 mcg/actuation HFA aerosol inhaler melatonin 10 mg tablet 10 mg PO BEDTIME PRN Insomnia 04/22/21 04/22/21 propranolol 40 mg tablet 20 mg PO TID PRN panic/anxiety 04/22/21 04/22/21 Previous Rx's Medication Instructions Recorded hydroxyzine HCl 50 mg tablet 50 mg PO TID PRN anxiety, 04/22/21 agitation #90 tabs naltrexone 50 mg tablet 50 mg PO DAILY 30 days #30 tabs 05/06/21 naltrexone microspheres 380 mg 380 mg IM Q4W 30 days #1 ea 10/28/21 intramuscular suspension,extended release (Vivitrol) acamprosate 333 mg tablet,delayed 666 mg PO TID 30 days #180 tabs 01/06/22 release albuterol sulfate 90 mcg/actuation 2 puff inhalation Q4-6H PRN 01/14/22 aerosol inhaler shortness of breath or wheezing #6.7 grams guaifenesin 600 mg tablet, 600 mg PO Q12H PRN congestion #14 01/14/22 extended release 12 hr tabs prednisone 20 mg tablet 40 mg PO DAILY 5 days #10 tabs 01/14/22 acetaminophen 500 mg tablet 500 mg PO Q6H PRN fever or pain 02/21/22 (Tylenol Extra Strength) #14 tabs cephalexin 500 mg capsule 500 mg PO QID 7 days #28 caps 02/21/22 doxycycline hyclate 100 mg tablet 100 mg PO BID 7 days #14 tabs 02/21/22 ibuprofen 800 mg tablet 800 mg PO Q8H PRN pain #14 tabs 02/21/22 ketorolac 10 mg tablet 10 mg PO TID PRN pain 5 days #15 05/03/22 tabs cyclobenzaprine 10 mg tablet 10 mg PO TID PRN muscle spasm #14 08/27/22 tabs ibuprofen 600 mg tablet 600 mg PO Q8H PRN pain #14 tabs 08/27/22 lidocaine 5 % topical patch 1 patch topical DAILY #15 ea 08/27/22 ibuprofen 600 mg tablet 600 mg PO Q6H PRN fever or pain 10/21/22 #30 tabs oxycodone 5 mg tablet 5 mg PO Q6H PRN pain #20 tabs 10/21/22 prednisone 20 mg tablet 40 mg PO DAILY #10 tabs 10/21/22 Allergies Allergy/AdvReac Type Severity Reaction Status Date / Time fluconazole [Diflucan] Allergy Unknown unk Verified 06/25/21 10:49 Review of Systems Review of Systems: Yes all other systems are reviewed and are negative [facility] Past Medical History Medical History Anxiety Social History Social History Household Members: Children Alcohol intake: current Alcohol intake frequency: a few times a month Patient Tobacco Use Status: Current everyday Tobacco user Tobacco use type: Cigarette Cigarettes Per Day: 10 Years Smoked: Ari age 16 Advance Directives: No Advance Directives Information Provided: Yes Current occupational status: employed 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 Moderate diffusion with diffuse tenderness Medications Administered Discontinued Medications Generic Name Dose Route Start Last Admin Trade Name Freq PRN Reason Stop Dose Admin Ibuprofen 600 mg 10/21/22 00:29 10/21/22 00:45 Ibuprofen 600 Mg Tablet PO 10/21/22 00:30 600 mg ONCE ONE Administration Prednisone 60 mg 10/21/22 00:29 10/21/22 00:45 Prednisone 20 Mg Tablet PO 10/21/22 00:30 60 mg ONCE ONE Administration Discharge Plan Discharge Clinical Impression: Osteoarthritis of left knee Patient Disposition: Home, Self-Care Instructions: Osteoarthritis (ED) Additional Instructions: Wear L knee brace as provided Avoid standing for long hours or going upstairs Pain medication and prednisone as prescribed Follow-up with orthopedics for further evaluation Prescriptions: New prednisone 20 mg tablet 40 mg PO DAILY Qty: 10 0RF ibuprofen 600 mg tablet 600 mg PO Q6H PRN (Reason: fever or pain) Qty: 30 0RF oxycodone 5 mg tablet 5 mg PO Q6H PRN (Reason: pain) Qty: 20 0RF Rx Instructions: Partial Fill upon patient request. No Action albuterol sulfate 90 mcg/actuation HFA aerosol inhaler 2 puff inhalation Q4-6H PRN (Reason: shortness of breath or wheezing) Qty: 6.7 0RF prednisone 20 mg tablet 40 mg PO DAILY 5 Days Qty: 10 0RF guaifenesin 600 mg tablet extended release 12hr 600 mg PO Q12H PRN (Reason: congestion) Qty: 14 0RF clonazepam [Klonopin] 1 mg Tablet 1 mg PO DAILY PRN (Reason: Anxiety) propranolol 40 mg Tablet 20 mg PO TID PRN (Reason: panic/anxiety) Rx Instructions: Take 1/2 tab three times a day as needed. Flovent 44 mcg/actuation Hfa Aerosol Inhaler 2 puff INHALATION BID albuterol sulfate 90 mcg/actuation Hfa Aerosol Inhaler 2 puff INHALATION Q6H PRN (Reason: Shortness Of Breath) aripiprazole 15 mg Tablet 7.5 mg PO DAILY Rx Instructions: take 1/2 tab daily. melatonin 10 mg Tablet 10 mg PO BEDTIME PRN (Reason: Insomnia) hydroxyzine HCl 50 mg tablet 50 mg PO TID PRN (Reason: anxiety, agitation) Qty: 90 0RF naltrexone 50 mg tablet 50 mg PO DAILY 30 Days Qty: 30 0RF cephalexin 500 mg capsule 500 mg PO QID 7 Days Qty: 28 0RF doxycycline hyclate 100 mg tablet 100 mg PO BID 7 Days Qty: 14 0RF ibuprofen 800 mg tablet 800 mg PO Q8H PRN (Reason: pain) Qty: 14 0RF acetaminophen [Tylenol Extra Strength] 500 mg tablet 500 mg PO Q6H PRN (Reason: fever or pain) Qty: 14 0RF ketorolac 10 mg tablet 10 mg PO TID PRN (Reason: pain) 5 Days Qty: 15 0RF Rx Instructions: Tolerated IM in the department cyclobenzaprine 10 mg tablet 10 mg PO TID PRN (Reason: muscle spasm) Qty: 14 0RF ibuprofen 600 mg tablet 600 mg PO Q8H PRN (Reason: pain) Qty: 14 0RF lidocaine 5 % adhesive patch,medicated 1 patch topical DAILY Qty: 15 0RF Rx Instructions: leave on most painful area for up to 12 hrs Vivitrol 380 mg suspension,extended rel recon 380 mg IM Q4W 30 Days Qty: 1 5RF acamprosate 333 mg tablet,delayed release (DR/EC) 666 mg PO TID 30 Days Qty: 180 3RF Referrals: Reynaldo Andres MD [Physician] - 2 weeks
[2022-10-21] MEDS: predniSONE 20 MG TABLET 60 MG PO (00:45)
[2022-10-21] MEDS: Ibuprofen 600 MG TABLET PO (00:45)
== END 2022-10-21 01:37 | disposition home or self-care (01) ==
PROVIDERS: Emergency Provider Internal Medicine
DX: M17.12 Unilateral primary osteoarthritis, left knee (principal); F17.210 Nicotine dependence, cigarettes, uncomplicated; Z79.899 Other long term (current) drug therapy
CPT/HCPCS: 73562; 99283

== ENCOUNTER 2024-11-08 13:34 | Emergency (ER) | payer OTHER, SELFPAY ==
--- NOTE | ~2024-11-08 | US_ITS ---
CLINICAL HISTORY: swelling, heaviness, pain Venous duplex ultrasound bilateral lower extremity COMPARISON: None provided. FINDINGS: The visualized deep veins are fully compressible with normal Doppler color flow and spectral tracings. Popliteal cyst present on the left measuring 3.5 x 1.6 x 1.1 cm. No right popliteal cyst identified. IMPRESSION: 1. Negative for bilateral lower extremity deep vein thrombosis. This document has been electronically signed by: Marco Lopez MD on 11/08/2024 17:35:11
[2024-11-08 13:43] VITALS: BP 155/88; PULSE 81; RESP 18; TEMP 36.6; O2SAT 98; BMI 36.9
--- NOTE | 2024-11-08 13:45 | ED_ITS ---
HPI - General Adult General Chief complaint: Extremity Injury, Lower Stated complaint: L leg pain Time Seen by Provider: 11/08/24 15:34 Source: patient and RN notes reviewed History of Present Illness ED Provider: Otto Parks PA-C HPI narrative: 49-year-old female with medical history of anxiety, alcohol use disorder (in remission), PTSD, anxiety, MDD, presents to the ED today due to 1 week of swelling, heaviness of bilateral legs. Patient states heaviness and swelling of the legs has been constant, has been using ibuprofen, and elevation without effect. Patient states yesterday she noticed a red rash around the ankles of her bilateral legs, rash is not pruritic. Additionally patient states she has been experiencing right flank pain, and states she has ?a bladder infection? as she has had increased urinary frequency with small volume in urine, and burning at the end of her urinary stream. Patient states she is perimenopause, has not had menstrual period for the last 2 months, but began cramping and bleeding yesterday. Patient denies chest pain, shortness of breath, nausea, vomiting, headaches, visual changes, black/tarry stool, blood in the urine. MD complaint: leg swelling, heaviness Related Data Home Medications ?Medication ?Instructions ?Recorded ?Confirmed albuterol sulfate 90 mcg/actuation 2 puff inhalation Q 6H PRN 04/22/21 04/22/21 aerosol inhaler Shortness Of Breath aripiprazole 15 mg tablet 7.5 mg PO DAILY 04/22/2102/01 clonazepam 1 mg tablet (Klonopin) 1 mg PO DAILY PRN An xiety 04/22/21 04/22/21 fluticasone propionate 44 2 puff inhalation BID 04/22/21 mcg/actuation HFA aerosol inhaler melatonin 10 mg tablet 10 mg PO BEDTIME PRN Insomni a 04/22/21 04/22/21 propranolol 40 mg tablet 20 mg PO TID PRN panic/anxie ty 04/22/21 04/22/21 Previous Rx's ?Medication ?Instructions ?Recorded hydroxyzine HCl 50 mg tablet 50 mg PO TID PRN anxiety, 04/22/21 agitation #90 tabs naltrexone 50 mg tablet 50 mg PO DAILY 30 days #30 t abs 05/06/21 naltrexone microspheres 380 mg 380 mg IM Q4W 30 days # 1 ea 10/28/21 intramuscular suspension,extended release (Vivitrol) acamprosate 333 mg tablet,delayed 666 mg (2 x 333 mg) PO TID 30 days 01/06/22 release #180 tabs albuterol sulfate 90 mcg/actuation 2 puff inhalation Q 4-6H PRN 01/14/22 aerosol inhaler shortness of breath or wheez ing #6.7 grams guaifenesin 600 mg tablet, 600 mg PO Q12H PRN congesti on #14 01/14/22 extended release 12 hr tabs prednisone 20 mg tablet 40 mg (2 x 20 mg) PO DAILY 5 days 01/14/22 #10 tabs acetaminophen 500 mg tablet 500 mg PO Q6H PRN fever or pain 02/21/22 (Tylenol Extra Strength) #14 tabs cephalexin 500 mg capsule 500 mg PO QID 7 days #28 cap s 02/21/22 doxycycline hyclate 100 mg tablet 100 mg PO BID 7 days #14 tabs 02/21/22 ibuprofen 800 mg tablet 800 mg PO Q8H PRN pain #14 t abs 02/21/22 ketorolac 10 mg tablet 10 mg PO TID PRN pain 5 days #15 05/03/22 tabs cyclobenzaprine 10 mg tablet 10 mg PO TID PRN muscle s pasm #14 08/27/22 tabs ibuprofen 600 mg tablet 600 mg PO Q8H PRN pain #14 t abs 08/27/22 lidocaine 5 % topical patch 1 patch topical DAILY #15 ea 08/27/22 ibuprofen 600 mg tablet 600 mg PO Q6H PRN fever or p ain 10/21/22 #30 tabs oxycodone 5 mg tablet 5 mg PO Q6H PRN pain #20 tab s 10/21/22 prednisone 20 mg tablet 40 mg (2 x 20 mg) PO DAILY # 10 tabs 10/21/22 oxycodone 5 mg capsule 5 mg PO Q8H PRN pain (scale score 10/22/22 7-10) 3 days #9 caps nitrofurantoin 100 mg PO BID 5 days #10 cap s 11/08/24 monohydrate/macrocrystals 100 mg capsule (Macrobid) Allergies Allergy/AdvReac Type Severity Reaction Status Date / Time fluconazole (Diflucan) Allergy Unknown unk Verified 11/08/24 13:46 Review of Systems 2 Review of Systems: CONST: Negative for fever, body aches and chills. HENT: Negative for neck pain/stiffness, headache, congestion, sore throat, swelling. EYES: Negative for discharge/pain or vision changes. RESP: Negative for cough/hemoptysis and shortness of breath. CV: Negative chest pain, difficulty breathing, palpitations. ABD: Negative pain, nausea, vomiting. POS B/L flank pain : Negative blood in urine or stool. POS increased urinary frequency, burning with urination MUSC: Negative for muscle aches, edema. POS B/L LE heaviness, swelling, non- pruritic rash SKIN: Negative rash, lesions/sores. NEURO: Negative headache, dizziness, weakness. 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 HEENT: ?NC, AT. MMM. EOMI, clear conjunctiva, oropharynx clear. NECK: ?Supple without lymphadenopathy.? No stiffness or restricted ROM. HEART:? Normal rate and regular rhythm, normal S1/S2, no m/r/g LUNGS:? CTAB, moving air well. No crackles or wheezes are heard. ABDOMEN: ?Soft, nontender, nondistended with good bowel sounds heard. BACK: B/L CVAT R>L EXTREMITIES: No pitting edema of lower extremities, there is a non-blanching, nonpruritic, flat vascular rash of bilateral legs, without warmth. B/L calf tenderness. DP pulses 2+ bilaterally See photos NEUROLOGICAL: ?Grossly nonfocal. Alert and oriented, moving all 4 extremities. Observed to ambulate with normal gait. Skin: ?Warm and dry without any rash. Course Course Course Narrative: This is an RME performed by Ruben Reagan CNP: Additional HPI, ROS, PE not included below will be deferred to primary provider. Patient is a 49-year-old female who presents emergency department for evaluation, she reports a fall one week ago he has been experiencing pain shooting pain to the extremities. swelling ti bilateral lower extremities is not certain when this started. She awoke today with a red discoloration to the bilateral lower extremities medial aspect of the lower leg. Denies fevers or chills. Long standing sciatica pain radiating to the knees, not typically lower legs. Medical Decision Making Medical Decision Making MDM Narrative: 49-year-old female with medical history of anxiety, alcohol use disorder (in remission), PTSD, anxiety, MDD, presents to the ED today due to 1 week of swelling, heaviness of bilateral legs. Patient states heaviness and swelling of the legs has been constant, has been using ibuprofen, and elevation without effect. Patient states yesterday she noticed a red rash around the ankles of her bilateral legs, rash is not pruritic. Additionally patient states she has been experiencing right flank pain, and states she has ?a bladder infection? as she has had increased urinary frequency with small volume in urine, and burning at the end of her urinary stream. Patient states she is in perimenopause, has not had menstrual period for the last 2 months, but began cramping and bleeding yesterday. VSS, normotensive 122/73, pulse rate 79 beats per minute, afebrile, 98% on room air. Physical exam reveals no pitting edema of lower extremities, there is a non-blanching, nonpruritic, flat vascular rash of bilateral legs, without warmth. There is bilateral calf tenderness. DP pulses 2+ bilaterally See photos in physical exam portion of this note. B/L CVA TTP R>L. Patient without chest pain, no shortness of breath. Labs revealed leukocytosis, without thrombocytopenia, H and H stable, no electrolyte abnormality. Course 17:53- venous ultrasound of bilateral lower extremities does not reveal DVT, however shows a left popliteal cyst- less likely DVT UA reveals 3+ urine blood, positive urine nitrites, 2+ leukocyte esterase, 3-5 urine RBCs, greater than 50 WBCs, 4+ bacteria, 3-5 squamous epithelial cells- urine blood, RBCs most likely due to patient having her menses. Patient afebrile, without chills, rigors, no nausea, vomiting, no abdominal pain-less likely pyelonephritis. We will treat infected urine with 5 day course of Macrobid. Counseled patient on treatment of popliteal cyst including icing, elevation, rest. I believe her rash is exercise induced vasculitis due to increased ambulation, as patient but has been walking back and forth to bus stops in the heat over the last 2 days, no thrombocytopenia on labs-less likely ITP Differential Diagnosis Differential Diagnoses: The differential diagnosis associated with the presentation includes ITP DVT Popliteal cyst UTI Lab Data MDM Lab Attestation statement: I reviewed the patient's lab results. 11/08/24 14:12 11/08/24 14:12 Labs: Lab Results 11/08/24 11/08/24 Range/Units 14:12 17:20 WBC 12.5 H (4.8-10.8) X10*3/uL RBC 4.67 (4.20-5.50) X10*6/uL Hgb 14.1 (12.0-16.0) g/dl Hct 41.3 (37.0-47.0) % MCV 88.4 (80.0-98.0) fL MCH 30.2 (27.0-33.0) pg MCHC 34.1 (31.0-35.0) g/dl RDW 13.8 (11.0-16.0) % Plt Count 278 (160-400) X10*3/uL MPV 9.6 (9.4-12.3) fL Immature Gran % (Auto) 0.3 (0.0-0.4) % Neut % (Auto) 69.4 (45-73) % Lymph % (Auto) 22.5 (20-40) % Edwards % (Auto) 5.8 (2-11) % Eos % (Auto) 1.5 (0-4) % Baso % (Auto) 0.5 (0-2) % Lymph # (Auto) 2.8 (1.2-4.9) X10*3/uL Edwards # (Auto) 0.7 (0.1-1.2) X10*3/uL Eos # (Auto) 0.2 (0.0-0.4) X10*3/uL Baso # (Auto) 0.1 (0.0-0.2) X10*3/uL Abs Immat Gran (auto) 0.04 H (0.00-0.03) X10*3/uL Absolute Neuts (auto) 8.7 H (2.0-8.3) x10*3/uL Absolute Nucleated RBC 0.000 (0.0-0.012) X10*3/uL Nucleated RBC % (auto) 0.0 (0.0-0.2) /100WBC Sodium 141 (135-145) mmol/L Potassium 3.7 (3.3-5.1) mmol/L Chloride 109 H (96-108) mmol/L Carbon Dioxide 25 (22-29) mmol/L Anion Gap 11 L (12-20) BUN 11 (9-16) mg/dL Creatinine 0.82 (0.5-1.4) mg/dL Estim Creat Clear Calc 96.1 Estimated GFR > 60 Random Glucose 105 (60-115) mg/dL Calcium 8.8 (8.4-10.2) mg/dL Total Bilirubin 0.4 (0.0-1.0) mg/dL AST 20 (5-31) U/L ALT 13 (0-31) U/L Alkaline Phosphatase 80 (39-117) U/L B-Natriuretic Peptide 16 (<100) pg/mL Total Protein 6.7 (6.5-8.0) g/dL Albumin 4.1 (3.5-5.0) g/dL Urine Color Dark Yellow Urine Appearance Cloudy Urine pH 5.5 (5.0-9.0) Ur Specific [place] 1.020 (1.005-1.025) Urine Protein Trace (Neg-Trace) mg/dL Urine Glucose (UA) Negative (Negative) mg/dL Urine Ketones Trace (Negative) mg/dL Urine Blood Large (3+) H (Negative) Urine Nitrite Positive H (Negative) Ur Leukocyte Esterase Moderate (2+) H (Negative) Urine RBC 3-5 H (0-2) /HPF Urine WBC >50 H (0-5) /HPF Ur Squamous Epith Cells 3-5 (0-2) /HPF Urine Bacteria 4+ (None Seen) Hyaline Casts 0-2 (0-2) /LPF Independent Interpretation I performed an independent interpretation of an: Ultrasound Interpretation: I personally interpreted ultrasound which did not reveal DVT Radiology Impression Discussion of test interpretation with radiology: I have reviewed the radiologist's reading. Radiologist Impression: US venous duplex LE BI FINDINGS: The visualized deep veins are fully compressible with normal Doppler color flow and spectral tracings. Popliteal cyst present on the left measuring 3.5 x 1.6 x 1.1 cm. No right popliteal cyst identified. IMPRESSION: 1. Negative for bilateral lower extremity deep vein thrombosis. This document has been electronically signed by: Marco Lopez MD on 11/08/2024 17:35:11 Dictated By: Marco Lopez MD Signed By: <Electronically signed by Marco Lopez MD in OV> 11/08/24 [id number] External Record Review External record reviewed: Inpatient record, Office record and Outpatient record Discharge Plan Discharge Clinical Impression: UTI (urinary tract infection) Patient Disposition: Home, Self-Care Instructions: Urinary Tract Infection in Women (DC) Additional Instructions: You were evaluated in the ED today due to bilateral leg heaviness, rash on bilateral legs, and urinary symptoms. Your labs revealed a mild elevation of your white blood cells of 12.5 without any other abnormalities. Your vital signs were stable, you were afebrile in the department. The ultrasound of bilateral legs did not reveal any DVT, but did see a left- sided popliteal cyst. This is a benign sac of fluid that is directly behind the left knee responsible for your left knee pain and swelling. You can take 500 mg of Tylenol, 400 mg of ibuprofen every 6 hours to manage pain of the left knee. Additionally you can ice the area, and elevate, and rest for improvement. Your urinalysis reveals infection. You will be prescribed a 5 day course of an antibiotic called Macrobid for coverage, and compression socks for the vascular rash on your legs. Prescriptions: New nitrofurantoin monohyd/m-cryst [Macrobid] 100 mg capsule 100 mg PO BID 5 Days Qty: 10 0RF Rx Instructions: must administer with a meal/food No Action albuterol sulfate 90 mcg/actuation HFA aerosol inhaler 2 puff inhalation Q4-6H PRN (Reason: shortness of breath or wheezing) Qty: 6.7 0RF prednisone 20 mg tablet 40 mg PO DAILY 5 Days Qty: 10 0RF guaifenesin 600 mg tablet extended release 12hr 600 mg PO Q12H PRN (Reason: congestion) Qty: 14 0RF clonazepam [Klonopin] 1 mg Tablet 1 mg PO DAILY PRN (Reason: Anxiety) propranolol 40 mg Tablet 20 mg PO TID PRN (Reason: panic/anxiety) Rx Instructions: Take 1/2 tab three times a day as needed. Flovent 44 mcg/actuation Hfa Aerosol Inhaler 2 puff INHALATION BID albuterol sulfate 90 mcg/actuation Hfa Aerosol Inhaler 2 puff INHALATION Q6H PRN (Reason: Shortness Of Breath) aripiprazole 15 mg Tablet 7.5 mg PO DAILY Rx Instructions: take 1/2 tab daily. melatonin 10 mg Tablet 10 mg PO BEDTIME PRN (Reason: Insomnia) hydroxyzine HCl 50 mg tablet 50 mg PO TID PRN (Reason: anxiety, agitation) Qty: 90 0RF naltrexone 50 mg tablet 50 mg PO DAILY 30 Days Qty: 30 0RF cephalexin 500 mg capsule 500 mg PO QID 7 Days Qty: 28 0RF doxycycline hyclate 100 mg tablet 100 mg PO BID 7 Days Qty: 14 0RF ibuprofen 800 mg tablet 800 mg PO Q8H PRN (Reason: pain) Qty: 14 0RF acetaminophen [Tylenol Extra Strength] 500 mg tablet 500 mg PO Q6H PRN (Reason: fever or pain) Qty: 14 0RF ketorolac 10 mg tablet 10 mg PO TID PRN (Reason: pain) 5 Days Qty: 15 0RF Rx Instructions: Tolerated IM in the department prednisone 20 mg tablet 40 mg PO DAILY Qty: 10 0RF ibuprofen 600 mg tablet 600 mg PO Q6H PRN (Reason: fever or pain) Qty: 30 0RF oxycodone 5 mg tablet 5 mg PO Q6H PRN (Reason: pain) Qty: 20 0RF Rx Instructions: Partial Fill upon patient request. oxycodone 5 mg capsule 5 mg PO Q8H PRN (Reason: pain (scale score 7-10)) 3 Days Qty: 9 0RF Rx Instructions: Partial Fill upon patient request. cyclobenzaprine 10 mg tablet 10 mg PO TID PRN (Reason: muscle spasm) Qty: 14 0RF ibuprofen 600 mg tablet 600 mg PO Q8H PRN (Reason: pain) Qty: 14 0RF lidocaine 5 % adhesive patch,medicated 1 patch topical DAILY Qty: 15 0RF Rx Instructions: leave on most painful area for up to 12 hrs Vivitrol 380 mg suspension,extended rel recon 380 mg IM Q4W 30 Days Qty: 1 5RF acamprosate 333 mg tablet,delayed release (DR/EC) 666 mg PO TID 30 Days Qty: 180 3RF Print Language: Bengali
[2024-11-08 14:15] LABS: MANUAL DIFF FLAG NO
[2024-11-08 14:20] LABS: Hematocrit 41.3 % (37.0-47.0); Hemoglobin 14.1 g/dl (12.0-16.0); Imm Gran Abs Auto 0.04 X10*3/uL (0.00-0.03); Imm Gran Pct Auto 0.3 % (0.0-0.4); Lymphocytes Absolute Auto 2.8 X10*3/uL (1.2-4.9); Mean Corpuscular HGB Conc 34.1 g/dl (31.0-35.0); Mean Corpuscular Hemoglobin 30.2 pg (27.0-33.0); Mean Corpuscular Volume 88.4 fL (80.0-98.0); NRBC Abs Auto 0.000 X10*3/uL (0.0-0.012); NRBC Pct Auto 0.0 /100WBC (0.0-0.2); Platelet Count 278 X10*3/uL (160-400); Red Blood Count 4.67 X10*6/uL (4.20-5.50); White Blood Count 12.5 X10*3/uL (4.8-10.8)
[2024-11-08 14:32] LABS: Alanine Aminotransferase 13 U/L (0-31); Albumin Level 4.1 g/dL (3.5-5.0); Alkaline Phosphatase 80 U/L (39-117); Anion Gap 11 (12-20); Aspartate Amino Transferase 20 U/L (5-31); Blood Urea Nitrogen 11 mg/dL (9-16); Calcium 8.8 mg/dL (8.4-10.2); Carbon Dioxide 25 mmol/L (22-29); Chloride 109 mmol/L (96-108); Creatinine Clr Calc Pharmacy 96.1; Estimated Glomerular Filt Rate > 60; Potassium 3.7 mmol/L (3.3-5.1); Sodium 141 mmol/L (135-145); Total Protein 6.7 g/dL (6.5-8.0)
[2024-11-08 14:38] LABS: B Type Natriuretic Peptide 16 pg/mL (<100)
[2024-11-08 14:55] VITALS: BP 122/73; PULSE 79; RESP 18; TEMP 36.6; O2SAT 98
--- OUTSIDE RECORDS SUMMARY | 2024-11-08 15:35 | XMS_ITS | Clinical Summary ---
Author Organization [facility] Address [address] [facility] [address] [place] [address] Phone Care Team Providers Care Assistant Corporation Counsel Name Role Phone Dhara Leslie GLASS TECHNICIAN/INSTALLER Primary Care Provider [phone] Allergies No known active allergies Medications fluticasone HFA (FLOVENT HFA) 44 MCG/ACT inhaler Inhale 1 puff 2 (two) times a day Rinse mouth with water after use to reduce aftertaste and incidence of candidiasis. Do not swallow. Active albuterol HFA (PROVENTIL HFA;VENTOLIN HFA) 108 (90 Base) MCG/ACT inhaler Inhale 2 puffs every 6 (six) hours if needed for wheezing Active cetirizine (ZyrTEC) 10 MG tablet Take 10 mg by mouth 1 (one) time each day Active ARIPiprazole (ABILIFY) 15 MG tablet 1 Active clonazePAM (KlonoPIN) 1 MG tablet 1 Active hydrOXYzine (ATARAX) 50 MG tablet 2 Active propranolol (INDERAL) 40 MG tablet 1 Active Vivitrol 380 MG reconstituted suspension 2 Active tamsulosin (FLOMAX) 0.4 MG 24 hr capsule TAKE 1 CAPSULE BY MOUTH 1 TIME EACH DAY. 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 01/18/2021 Anxiety 01/18/2021 Immunizations Immunization Administration Dates Next Due Pfizer SARS-COV-2 12/05/2020,11/14/2020 Tdap 03/28/2019,03/25/2007 Family History Medical History Relation Comments Diabetes Father Heart disease Father Anemia Mother Relation Status Comments Father Mother Alive Social History Tobacco Use Types Packs/Day Years Used Date Smoking Tobacco: Every Day Cigarettes Smokeless Tobacco: Current Alcohol Use Standard Drinks/Week Comments Never 0 (1 standard drink = 0.6 oz pur e alcohol) Comments Unknown Sex and Gender Information Value Date Recorded Sex Assigned at Not on file Legal Sex Female 3:24 PM EDT Gender Identity Not on file Sexual Orientation Not on file Last Filed Vital Signs Vital Sign Reading Time Taken Comments Blood Pressure 120/60 07/18/2021 3:03 PM EDT Pulse 74 07/18/2021 3:03 PM EDT Temperature - - Respiratory Rate - - Oxygen Saturation 96% 07/18/2021 3:03 PM EDT Inhaled Oxygen Concentration - - Weight 90.3 kg (199 lb) 07/18/2021 3:03 PM EDT Height - - Body Mass Index - - Plan of Treatment Health Maintenance Due Date Last Done Comments Hepatitis B Vaccine (1 of 3 - 19+ 3-dose series) 08/14 Pneumococcal Vaccine: Peds ( 0 to 5 Years) and At-Risk Patients (6 to 49 Years) (1 of 2 - PCV) 1996 Influenza Vaccine (#1) 2024 Insurance [facility] [place] [id number] [place] [id number] Care Teams Assistant Corporation Counsel Relationship Specialty Start Date End Date Dhara Leslie NP [address] [place] [address] PCP - General Nurse Practitioner 12/19/20
--- OUTSIDE RECORDS SUMMARY | 2024-11-08 15:36 | XMS_ITS | Patient Health Record ---
Author Organization [facility] Address [address] [address] [place] [address] Care Team Providers Care Regional Sales Coordinator Name Role Phone Sofie Montana Primary Care Provider Unavaila ble Allergies Allergen (clinical drug ingredient) Drug/Non Drug Allergy documented on EMR Reaction Allergy Type Onset Date Status cephalexin Cephalexin Unknown Drug Allergy Activ e Reason For Referral No Information Medications Medication SIG (Take, Route, Frequency, Duration) Notes Start Date End Date Status Terbinafine HCl 250 MG 1 tablet Orally O nce a day; Duration: 90 day(s) Active ARIPiprazole 2 MG 1 tablet Orally Once a day Active clonazePAM 1 MG 1 tablet Orally Once a day Active Nicotine 7 MG/24HR 1 patch to skin Transdermal Once a day Not-Takin g buPROPion HCl ER (XL) 150 MG 1 tablet in the morning Orally Once a day Not-Taking Plan Of Treatment Pending Test Test Name Order Date Hepatic Function Panel (7) 03/14/2020 Insurance Providers Payer Name Payer Address Payer Phone Subscriber Number Group Number Insured Name Patient Relationship to Insured Coverage Start Date Coverage End Date [employer] of [place] [id number] [place] [id number] Becki Baez Self - patient is the insured Medical (General) History Medical History History ICD Code Other allergic rhinitis J30.89 Stress incontinence (female) (male) N39. 3 Other disorders of lung J98.4 Alcohol abuse, uncomplicated F10.10 Unspecified abdominal pain R10.9 Tobacco use disorder F17.200 Anxiety disorder, unspecified F41.9 Low back pain M54.5 Helicobacter pylori antibody positive
--- OUTSIDE RECORDS SUMMARY | 2024-11-08 15:36 | XMS_ITS | Encounter Summary ---
Author Organization [facility] Address [address] [place] [address] Care Team Providers Care Machinist First Class Name Role Phone Sofie Montana MD Primary Care Provider Gurpreet osman Encounter Details Date Type Department Care Team (Latest Contact Info) Description 08/23/[address] [facility] - Main Lab [address] [place] [address] Luna Urbano MD [address] [address] Encounter for gynecological examination (general) (routine) without abnormal findings Social History Tobacco Use Types Packs/Day Years Used Date Smoking Tobacco: Every Day Cigarettes Smokeless Tobacco: Never Alcohol Use Standard Drinks/Week Comments No 0 (1 standard drink = 0.6 oz pur e alcohol) Comments Unknown Sex and Gender Information Value Date Recorded Sex Assigned at Not on file Legal Sex Female 3:16 AM EST Gender Identity Not on file Sexual Orientation Not on file documented as of this encounter Plan of Treatment Not on file documented as of this encounter Procedures Procedure Name Priority Date/Time Associated Diagnosis Comments PAP SMEAR Routine 08/22/2024 12:00 AM EDT Encounter for gynecological examination (general) (routine) without abnormal findings documented in this encounter Results * Pap smear (08/22/2024 12:00 AM EDT) Interpretation Negative for intraepithelial lesion or malignancy 08/24/2024 2:07 PM EDT [facility] General Categorization Negative 08/24/2024 2:07 PM EDT [facility] Other Findings Trichomonas vaginalis 08/24/2024 2:07 PM T [facility] Specimen Adequacy Satisfactory for evaluation, endocervical/walls sformation zone component present 08/24/2024 2:07 PM EDT [facility] Pap Methodology Liquid Based Pap Test 08/24/2024 2:07 PM EDT [facility] Disclaimer The Pap test is a screening test which carries an inherent false negative rate. These test results should be correlated with the patient's clinical findings and history. This Pap test was processed using an automated screening system. Technical cytopathology services provided by [facility], at [address] [place] [address] (CLIA # [id number]/German Owens MD, Tutor Coordinator.) 08/24/2024 2:07 PM EDT [facility] Console Pap Interpretation Reported 08/24/2024 2:07 PM [facility] Brushing/Spatula Cervix uteri structure / Unknown 08/22/2024 08/23/2024 7:00 AM EDT us Luna Urbano MD LAB CYTOLOGY ORDERABLES Final Result [facility] [address] [place] [address], documented in this encounter Visit Diagnoses Diagnosis Encounter for gynecological examination (general) (routine) without abnormal findings documented in this encounter Care Teams Machinist First Class Relationship Specialty Start Date End Date Sofie Montana MD PCP - General 12/31/10 documented as of this encounter
[2024-11-08 17:26] LABS: Appearance Urine Cloudy; Glucose Urine UA Negative (Negative); PH 5.5 (5.0-9.0); Specific Gravity - Urine 1.020 (1.005-1.025); UMIC TRIGGER UACC YES
[2024-11-08 17:38] LABS: UACC Culture Trigger YES
[2024-11-08 18:21] VITALS: BP 122/73; PULSE 79; RESP 18; TEMP 36.6; O2SAT 98
== END 2024-11-08 18:21 | disposition home or self-care (01) ==
PROVIDERS: Nurse Practitioner Family; Emergency Provider Emergency Medicine
DX: N39.0 Urinary tract infection, site not specified (principal); M71.22 Synovial cyst of popliteal space [Baker], left knee; M79.662 Pain in left lower leg; M79.661 Pain in right lower leg; R21 Rash and other nonspecific skin eruption; F17.210 Nicotine dependence, cigarettes, uncomplicated
CPT/HCPCS: 36415; 80053; 81001; 83880; 85025; 87086; 93970; 99284

== ENCOUNTER → 2024-11-08 16:33 | Outpatient (BNV) | payer OTHER, SELFPAY | PROVIDERS: Emergency Provider Emergency Medicine; Visit Provider Radiology Diagnostic Radiology | DX: M79.605 Pain in left leg (principal) | CPT/HCPCS: 93970 ==

== ENCOUNTER 2024-12-31 14:22 | Emergency (ER) | payer OTHER, SELFPAY ==
[2024-12-31 14:28] VITALS: BP 176/85; PULSE 84; RESP 20; TEMP 36.7; O2SAT 98; BMI 36.3
--- NOTE | 2024-12-31 14:36 | ED_ITS ---
HPI - Female Genitourinary General Chief complaint: Urogenital-Female Stated complaint: Uti Time Seen by Provider: 12/31/24 15:40 Source: patient Mode of arrival: ambulatory Limitations: no limitations History of Present Illness ED Provider: Chetna Wick APRN HPI Narrative: 49-year-old female with medical history of anxiety, alcohol use disorder (in remission), PTSD, anxiety, MDD, chronic back pain presents the ER with complaints of urinary frequency and dysuria for the last few days. Patient also reports chronic lower back pain. She also reports some suprapubic discomfort. No fever or vomiting. Patient reports she also wants to be tested for Trichomonas as she had sexual intercourse with a new partner recently. She has a history of Trichomonas and feels that these symptoms are similar to when she had Trichomonas in the past. Related Data Home Medications ?Medication ?Instructions ?Recorded ?Confirmed albuterol sulfate 90 mcg/actuation 2 puff inhalation Q 6H PRN 04/22/21 04/22/21 aerosol inhaler Shortness Of Breath aripiprazole 15 mg tablet 7.5 mg PO DAILY 04/22/2102/01 clonazepam 1 mg tablet (Klonopin) 1 mg PO DAILY PRN An xiety 04/22/21 04/22/21 fluticasone propionate 44 2 puff inhalation BID 04/22/21 mcg/actuation HFA aerosol inhaler melatonin 10 mg tablet 10 mg PO BEDTIME PRN Insomni a 04/22/21 04/22/21 propranolol 40 mg tablet 20 mg PO TID PRN panic/anxie ty 04/22/21 04/22/21 Previous Rx's ?Medication ?Instructions ?Recorded hydroxyzine HCl 50 mg tablet 50 mg PO TID PRN anxiety, 04/22/21 agitation #90 tabs naltrexone 50 mg tablet 50 mg PO DAILY 30 days #30 t abs 05/06/21 naltrexone microspheres 380 mg 380 mg IM Q4W 30 days # 1 ea 10/28/21 intramuscular suspension,extended release (Vivitrol) acamprosate 333 mg tablet,delayed 666 mg (2 x 333 mg) PO TID 30 days 01/06/22 release #180 tabs albuterol sulfate 90 mcg/actuation 2 puff inhalation Q 4-6H PRN 10/04/22 aerosol inhaler shortness of breath or wheez ing #6.7 grams guaifenesin 600 mg tablet, 600 mg PO Q12H PRN congesti on #14 01/14/22 extended release 12 hr tabs prednisone 20 mg tablet 40 mg (2 x 20 mg) PO DAILY 5 days 01/14/22 #10 tabs acetaminophen 500 mg tablet 500 mg PO Q6H PRN fever or pain 02/21/22 (Tylenol Extra Strength) #14 tabs cephalexin 500 mg capsule 500 mg PO QID 7 days #28 cap s 02/21/22 doxycycline hyclate 100 mg tablet 100 mg PO BID 7 days #14 tabs 02/21/22 ibuprofen 800 mg tablet 800 mg PO Q8H PRN pain #14 t abs 02/21/22 ketorolac 10 mg tablet 10 mg PO TID PRN pain 5 days #15 05/03/22 tabs cyclobenzaprine 10 mg tablet 10 mg PO TID PRN muscle s pasm #14 08/27/22 tabs ibuprofen 600 mg tablet 600 mg PO Q8H PRN pain #14 t abs 08/27/22 lidocaine 5 % topical patch 1 patch topical DAILY #15 ea 08/27/22 ibuprofen 600 mg tablet 600 mg PO Q6H PRN fever or p ain 10/21/22 #30 tabs oxycodone 5 mg tablet 5 mg PO Q6H PRN pain #20 tab s 10/21/22 prednisone 20 mg tablet 40 mg (2 x 20 mg) PO DAILY # 10 tabs 10/21/22 oxycodone 5 mg capsule 5 mg PO Q8H PRN pain (scale score 10/22/22 7-10) 3 days #9 caps nitrofurantoin 100 mg PO BID 5 days #10 cap s 11/08/24 monohydrate/macrocrystals 100 mg capsule (Macrobid) nitrofurantoin 100 mg PO Q12H 5 days #10 ca ps 12/31/24 monohydrate/macrocrystals 100 mg capsule (Macrobid) phenazopyridine 200 mg tablet 200 mg PO TID PRN pain 9 doses #9 12/31/24 (Pyridium) tabs Allergies Allergy/AdvReac Type Severity Reaction Status Date / Time fluconazole (Diflucan) Allergy Unknown unk Verified 12/31/24 14:32 [facility] Past Medical History Medical History Anxiety Social History Social History Household Members: Children Alcohol intake: current Alcohol intake frequency: a few times a month Patient Tobacco Use Status: Current everyday Tobacco user Tobacco use type: Cigarette Cigarettes Per Day: 10 Years Smoked: Ari age 16 Smoked in Last 30 Days: Yes Use of substances other than those prescribed or required for medical reasons: Yes Substance Use Type: Marijuana Advance Directives: No Advance Directives Information Provided: No Do you have a plan to hurt others: No Plan Current occupational status: employed Current occupation: [employer] - Left Handed Physical Exam 2 Vital Signs: Vital Signs: Last Vital Signs Temp 97.0 F 12/31/24 16:03 Pulse 80 12/31/24 16:03 Resp 18 12/31/24 16:03 BP 152/97 H 12/31/24 16:03 Pulse Ox 97 12/31/24 16:03 O2 Del Method Room Air 12/31/24 16:03 BMI result Body Mass Index 36.3 Course Course Course Narrative: This is an RME: Additional HPI, ROS, PE not included below will be deferred to primary provider. RME assessment and note performed by: Nancy nAdrade PA-C This is a 37-[id number]-female, ptsd, magdalena, who presents to the ER with concerns for urinary frequency, right lank pain. Also thinks that she has trich as her partner had it and did not clear the infection. Symptoms started several days ago. Plan: Labs, UA, ct/ng, further ER eval needed Reevaluation(s) Reevaluation #1: UA is consistent with UTI. Will send culture. Additional testing is pending. Patient will return for treatment if needed. Will discharge home with Pyridium and Macrobid. Reviewed worrisome signs and symptoms of when to return to the emergency room. Comfortable plan for discharge home Medical Decision Making Medical Decision Making MDM Narrative: 49-year-old female with medical history of anxiety, alcohol use disorder (in remission), PTSD, anxiety, MDD, chronic back pain presents the ER with complaints of urinary frequency and dysuria for the last few days. Patient also reports chronic lower back pain. She also reports some suprapubic discomfort. No fever or vomiting. Patient reports she also wants to be tested for Trichomonas as she had sexual intercourse with a new partner recently. She has a history of Trichomonas and feels that these symptoms are similar to when she had Trichomonas in the past. No focal abdominal pain on exam. Vitals are stable. Will send urine testing, patient will self swab for trichomonas, STI Will review labs from triage. Differential Diagnosis Differential Diagnoses: The differential diagnosis associated with the presentation includes UTI, trichomonas No CVA tenderness suggest pyelonephritis or renal colic No focal abdominal pain to suggest PID or TOA Admission/Observation Consideration of admission/observation: Escalation of care including admission/observation considered Lab Data MDM Lab Attestation statement: I reviewed the patient's lab results. 12/31/24 14:39 12/31/24 14:39 Labs: Lab Results 12/31/24 12/31/24 Range/Units 14:38 14:39 WBC 14.4 H (4.8-10.8) X10*3/uL RBC 4.93 (4.20-5.50) X10*6/uL Hgb 14.6 (12.0-16.0) g/dl Hct 44.0 (37.0-47.0) % MCV 89.2 (80.0-98.0) fL MCH 29.6 (27.0-33.0) pg MCHC 33.2 (31.0-35.0) g/dl RDW 13.7 (11.0-16.0) % Plt Count 252 (160-400) X10*3/uL MPV 9.2 L (9.4-12.3) fL Immature Gran % (Auto) 0.3 (0.0-0.4) % Neut % (Auto) 77.0 H (45-73) % Lymph % (Auto) 14.7 L (20-40) % Mcdonald % (Auto) 7.1 (2-11) % Eos % (Auto) 0.6 (0-4) % Baso % (Auto) 0.3 (0-2) % Lymph # (Auto) 2.1 (1.2-4.9) X10*3/uL Mcdonald # (Auto) 1.0 (0.1-1.2) X10*3/uL Eos # (Auto) 0.1 (0.0-0.4) X10*3/uL Baso # (Auto) 0.1 (0.0-0.2) X10*3/uL Abs Immat Gran (auto) 0.05 H (0.00-0.03) X10*3/uL Absolute Neuts (auto) 11.1 H (2.0-8.3) x10*3/uL Absolute Nucleated RBC 0.000 (0.0-0.012) X10*3/uL Nucleated RBC % (auto) 0.0 (0.0-0.2) /100WBC Sodium 138 (135-145) mmol/L Potassium 4.2 (3.3-5.1) mmol/L Chloride 104 (96-108) mmol/L Carbon Dioxide 27 (22-29) mmol/L Anion Gap 11 L (12-20) BUN 6 L (9-16) mg/dL Creatinine 0.77 (0.5-1.4) mg/dL Estim Creat Clear Calc 101.5 Estimated GFR > 60 Random Glucose 82 (60-115) mg/dL Calcium 9.0 (8.4-10.2) mg/dL Total Bilirubin 0.2 (0.0-1.0) mg/dL Direct Bilirubin < 0.2 (0.0-0.5) mg/dL AST 23 (5-31) U/L ALT 16 (0-31) U/L Alkaline Phosphatase 96 (39-117) U/L Total Protein 7.0 (6.5-8.0) g/dL Albumin 4.2 (3.5-5.0) g/dL Beta HCG, Quant < 2 mIU/mL Urine Color Yellow Urine Appearance Cloudy Urine pH 7.5 (5.0-9.0) Ur Specific [place] 1.010 (1.005-1.025) Urine Protein Negative (Neg-Trace) mg/dL Urine Glucose (UA) Negative (Negative) mg/dL Urine Ketones Negative (Negative) mg/dL Urine Blood Trace H (Negative) Urine Nitrite Positive H (Negative) Ur Leukocyte Esterase Moderate (2+) H (Negative) Urine RBC 6-10 H (0-2) /HPF Urine WBC >50 H (0-5) /HPF Ur Squamous Epith Cells 0-2 (0-2) /HPF Urine Bacteria 4+ (None Seen) Hyaline Casts 0-2 (0-2) /LPF Ur N gonorrhoeae DNA (PCR) NOT DETECTED (Not Detect.) Ur Chlamydia DNA (PCR) NOT DETECTED (Not Detect.) Tests considered The following testing was considered but not selected: No CVA tenderness suggest need for CT image Prescription Management I considered prescription management with: Pain Medication Discharge Plan Discharge Clinical Impression: UTI (urinary tract infection) Patient Disposition: Home, Self-Care Instructions: Urinary Tract Infection in Women (ED) Additional Instructions: Your urine shows that you have a urinary tract infection. We are treating you for UTI. We will send a culture and if you need a different antibiotic we will call you to inform you. We sent testing for Trichomonas. We will call you if these results are positive and if you require treatment Increase fluids at home Follow-up with the primary care doctor as needed Continue your home medication Prescriptions: New nitrofurantoin monohyd/m-cryst [Macrobid] 100 mg capsule 100 mg PO Q12H 5 Days Qty: 10 0RF Rx Instructions: must administer with a meal/food phenazopyridine [Pyridium] 200 mg tablet 200 mg PO TID PRN (Reason: pain) Qty: 9 0RF No Action albuterol sulfate 90 mcg/actuation HFA aerosol inhaler 2 puff inhalation Q4-6H PRN (Reason: shortness of breath or wheezing) Qty: 6.7 0RF prednisone 20 mg tablet 40 mg PO DAILY 5 Days Qty: 10 0RF guaifenesin 600 mg tablet extended release 12hr 600 mg PO Q12H PRN (Reason: congestion) Qty: 14 0RF clonazepam [Klonopin] 1 mg Tablet 1 mg PO DAILY PRN (Reason: Anxiety) propranolol 40 mg Tablet 20 mg PO TID PRN (Reason: panic/anxiety) Rx Instructions: Take 1/2 tab three times a day as needed. Flovent 44 mcg/actuation Hfa Aerosol Inhaler 2 puff INHALATION BID albuterol sulfate 90 mcg/actuation Hfa Aerosol Inhaler 2 puff INHALATION Q6H PRN (Reason: Shortness Of Breath) aripiprazole 15 mg Tablet 7.5 mg PO DAILY Rx Instructions: take 1/2 tab daily. melatonin 10 mg Tablet 10 mg PO BEDTIME PRN (Reason: Insomnia) hydroxyzine HCl 50 mg tablet 50 mg PO TID PRN (Reason: anxiety, agitation) Qty: 90 0RF naltrexone 50 mg tablet 50 mg PO DAILY 30 Days Qty: 30 0RF cephalexin 500 mg capsule 500 mg PO QID 7 Days Qty: 28 0RF doxycycline hyclate 100 mg tablet 100 mg PO BID 7 Days Qty: 14 0RF ibuprofen 800 mg tablet 800 mg PO Q8H PRN (Reason: pain) Qty: 14 0RF acetaminophen [Tylenol Extra Strength] 500 mg tablet 500 mg PO Q6H PRN (Reason: fever or pain) Qty: 14 0RF ketorolac 10 mg tablet 10 mg PO TID PRN (Reason: pain) 5 Days Qty: 15 0RF Rx Instructions: Tolerated IM in the department prednisone 20 mg tablet 40 mg PO DAILY Qty: 10 0RF ibuprofen 600 mg tablet 600 mg PO Q6H PRN (Reason: fever or pain) Qty: 30 0RF oxycodone 5 mg tablet 5 mg PO Q6H PRN (Reason: pain) Qty: 20 0RF Rx Instructions: Partial Fill upon patient request. oxycodone 5 mg capsule 5 mg PO Q8H PRN (Reason: pain (scale score 7-10)) 3 Days Qty: 9 0RF Rx Instructions: Partial Fill upon patient request. cyclobenzaprine 10 mg tablet 10 mg PO TID PRN (Reason: muscle spasm) Qty: 14 0RF ibuprofen 600 mg tablet 600 mg PO Q8H PRN (Reason: pain) Qty: 14 0RF lidocaine 5 % adhesive patch,medicated 1 patch topical DAILY Qty: 15 0RF Rx Instructions: leave on most painful area for up to 12 hrs nitrofurantoin monohyd/m-cryst [Macrobid] 100 mg capsule 100 mg PO BID 5 Days Qty: 10 0RF Rx Instructions: must administer with a meal/food Vivitrol 380 mg suspension,extended rel recon 380 mg IM Q4W 30 Days Qty: 1 5RF acamprosate 333 mg tablet,delayed release (DR/EC) 666 mg PO TID 30 Days Qty: 180 3RF Referrals: Physician,Unknown J [Primary Care Provider, Medical] Print Language: Mohawk
[2024-12-31 14:44] LABS: MANUAL DIFF FLAG NO
[2024-12-31 14:46] LABS: Hematocrit 44.0 % (37.0-47.0); Hemoglobin 14.6 g/dl (12.0-16.0); Imm Gran Abs Auto 0.05 X10*3/uL (0.00-0.03); Imm Gran Pct Auto 0.3 % (0.0-0.4); Lymphocytes Absolute Auto 2.1 X10*3/uL (1.2-4.9); Mean Corpuscular HGB Conc 33.2 g/dl (31.0-35.0); Mean Corpuscular Hemoglobin 29.6 pg (27.0-33.0); Mean Corpuscular Volume 89.2 fL (80.0-98.0); NRBC Abs Auto 0.000 X10*3/uL (0.0-0.012); NRBC Pct Auto 0.0 /100WBC (0.0-0.2); Platelet Count 252 X10*3/uL (160-400); Red Blood Count 4.93 X10*6/uL (4.20-5.50); White Blood Count 14.4 X10*3/uL (4.8-10.8)
[2024-12-31 14:47] LABS: Appearance Urine Cloudy; Glucose Urine UA Negative (Negative); PH 7.5 (5.0-9.0); Specific Gravity - Urine 1.010 (1.005-1.025); UMIC TRIGGER UACC YES
[2024-12-31 14:53] LABS: UACC Culture Trigger YES
[2024-12-31 15:01] LABS: Alanine Aminotransferase 16 U/L (0-31); Albumin Level 4.2 g/dL (3.5-5.0); Alkaline Phosphatase 96 U/L (39-117); Anion Gap 11 (12-20); Aspartate Amino Transferase 23 U/L (5-31); Blood Urea Nitrogen 6 mg/dL (9-16); Calcium 9.0 mg/dL (8.4-10.2); Carbon Dioxide 27 mmol/L (22-29); Chloride 104 mmol/L (96-108); Creatinine Clr Calc Pharmacy 101.5; Estimated Glomerular Filt Rate > 60; Potassium 4.2 mmol/L (3.3-5.1); Sodium 138 mmol/L (135-145); Total Protein 7.0 g/dL (6.5-8.0)
--- OUTSIDE RECORDS SUMMARY | 2024-12-31 15:27 | XMS_ITS | Clinical Summary ---
Author Organization [facility] Address [address] [facility] [address] [place] [address] Phone Care Team Providers Care Thread Winder Name Role Phone Dhara Leslie PATIENT CENTERED CARE SPECIALIST Primary Care Provider [phone] Allergies No known active allergies Medications fluticasone [...] PCV) 1996 Influenza Vaccine (#1) 2024 Insurance [facility] [place] [id number] [place] [id number] Care Teams Thread Winder Relationship Specialty Start Date End Date Dhara Leslie NP [address] [place] [address] PCP - General Nurse Practitioner 12/19/20
--- OUTSIDE RECORDS SUMMARY | 2024-12-31 15:27 | XMS_ITS | Encounter Summary ---
Author Organization [facility] Address [address] [place] [address] Care Team Providers Care Automobile Body Repair Chief Name Role Phone Sofie Montana MD Primary Care Provider Gurpreet osman Encounter Details Date Type Department Care Team (Latest Contact Info) Description 08/23/2024 Lab Requisition [facility] - Main Lab [address] [place] [address] Luna Urbano MD [address] [address] Encounter for gynecological examination (general) [...] lesion or malignancy 08/24/2024 2:07 PM EDT [facility] General Categorization Negative 08/24/2024 2:07 PM EDT [facility] Other Findings Trichomonas vaginalis 08/24/2024 2:07 PM T [facility] Specimen Adequacy Satisfactory for evaluation, endocervical/walls sformation zone component present 08/24/2024 2:07 PM EDT [facility] Pap Methodology Liquid Based Pap Test 08/24/2024 2:07 PM EDT [facility] Disclaimer The Pap test is a screening test which carries an inherent false negative rate. These test results should be correlated with the patient's clinical findings and history. This Pap test was processed using an automated screening system. Technical cytopathology services provided by [facility], at [address] [place] [address] (CLIA # [id number]/German Owens MD, Imaging Services Director.) 08/24/2024 2:07 PM EDT [facility] Console Pap Interpretation Reported 08/24/2024 2:07 PM [facility] Brushing/Spatula Cervix uteri structure / Unknown 08/22/2024 08/23/2024 7:00 AM EDT us Luna Urbano MD LAB CYTOLOGY ORDERABLES Final Result [facility] [address] [place] [address], documented in this encounter Visit Diagnoses Diagnosis Encounter for gynecological examination (general) (routine) without abnormal findings documented in this encounter Care Teams Automobile Body Repair Chief Relationship Specialty Start Date End Date Sofie Montana MD PCP - General 12/31/10 documented as of this encounter
--- OUTSIDE RECORDS SUMMARY | 2024-12-31 15:27 | XMS_ITS | Encounter Summary ---
Author Organization [facility] Address [address] [place] [address] Care Team Providers Care Collective Bargaining Specialist Name Role Phone Sofie Montana MD Primary Care Provider Gurpreet osman Encounter Details Date Type Department Care Team (Latest Contact Info) Description 08/22/2024 Lab Requisition [facility] - Main Lab [address] [facility] [place] [address] Luna Urbano MD 299 [facility] [address] [place] [address] Acute vaginitis; Encounter for screening for infections with a predominantly sexual mode of transmission Social History Tobacco Use Types Packs/Day Years [...] Procedure Name Priority Date/Time Associated Diagnosis Comments VAGINITIS PATHOGENS BY PCR Routine 08/22/2024 12:00 AM EDT Acute vaginitis Encounter for screening for infections with a predominantly sexual mode of transmission CHLAMYDIA TRACHOMATIS AND NEISSERIA GONORRHOEAE PCR Routine 08/22/2024 12:00 AM EDT Acute vaginitis Encounter for screening for infections with a predominantly sexual mode of transmission documented in this encounter Results * (ABNORMAL) Vaginitis pathogens molecular study (08/22/2024 12:00 AM EDT) Trichomonas vaginalis Positive(A) Negative 08/23/2024 9:[address] [facility] Gardnerella vaginalis Positive(A) Negative 08/23/2024 9:[address] [facility] Mandy Species Negative Negative 9:[address] [facility] Swab Vaginal structure / Unknown 08/22/2024 08/22/2024 5:59 PM EDT us Luna Urbano MD LAB MICROBIOLOGY - GENER AL ORDERABLES Final Result Performing Organization Address City/[facility]/ZIP Co de Phone Number [facility] [address] [place] [address], [place] [phone] * Chlamydia trachomatis and Neisseria gonorrhoeae molecular study (08/22/2024 12:00 AM EDT) Neisseria gonorrhoeae PCR Negative Negative LAB MOLECULAR DIAGNOSTICS METHOD 08/23/2024 9:[address] [facility] Chlamydia trachomatis PCR Negative Negative LAB MOLECULAR DIAGNOSTICS METHOD 08/23/2024 9:[address] [facility] Swab Cervix uteri structure / Unknown 08/22/2024 08/22/2024 5:59 PM EDT us Luna Urbano MD LAB MICROBIOLOGY - GENER AL ORDERABLES Final Result [facility] [address] [place] [address], [place] [phone] documented in this encounter Visit Diagnoses Diagnosis Acute vaginitis Unspecified vaginitis and vulvovaginitis Encounter for screening for infections with a predominantly sexual mode of transmission documented in this encounter Care Teams Collective Bargaining Specialist Relationship Specialty Start Date End Date Sofie Montana MD PCP - General 12/31/10 documented as of this encounter
--- OUTSIDE RECORDS SUMMARY | 2024-12-31 15:27 | XMS_ITS | Encounter Summary ---
Author Organization [facility] Address [address] [place] [address] Care Team Providers Care Cloth Dye Range Operator Name Role Phone Sofie Montana MD Primary Care Provider Gurpreet osman Encounter Details Date Type Department Care Team (Late st Contact Info) Description 09/15/2024 Lab Requisition [facility] Main Lab [address] [place] [address] Luna Urbano MD 299 [facility] [address] [place] [id number] Acute vaginitis Social History Tobacco Use Types Packs/Day Years [...] Diagnosis Comments VAGINITIS PATHOGENS BY PCR Routine 09/15/2024 12:00 AM EDT Acute vaginitis documented in this encounter Results * Vaginitis pathogens molecular study (09/15/2024 12:00 AM EDT) Trichomonas vaginalis Negative Negative 09/16/2024 10:37 AM EDT [facility] Gardnerella vaginalis Negative Negative 09/16/2024 10:37 AM EDT [facility] Mandy Species Negative Negative 10:37 AM EDT [facility] Swab Vaginal structure / Unknown 09/15/2024 09/15/2024 5:55 PM EDT us Luna Urbano MD LAB MICROBIOLOGY - GENER AL ORDERABLES Final Result [facility] [address] [place] [address], documented in this encounter Visit Diagnoses Diagnosis Acute vaginitis Unspecified vaginitis and vulvovaginitis documented in this encounter Care Teams Cloth Dye Range Operator Relationship Specialty Start Date End Date Sofie Montana MD PCP - General 12/31/10 documented as of this encounter
--- OUTSIDE RECORDS SUMMARY | 2024-12-31 15:27 | XMS_ITS | Encounter Summary ---
Author Organization [facility] Address [address] [place] [address] Care Team Providers Care Heat Treater Head Name Role Phone Sofie Montana MD Primary Care Provider Gurpreet osman Encounter Details Date Type Department Care Team (Late st Contact Info) Description 10/03/[address] [facility] Main Lab [address] [place] [address] Luna Urbano MD 299 [facility] [address] [place] [phone] Acute vaginitis Social History Tobacco Use Types [...] Diagnosis Comments VAGINITIS PATHOGENS BY PCR Routine 10/03/2024 12:00 AM EDT Acute vaginitis documented in this encounter Results * Vaginitis pathogens molecular study (10/03/2024 12:00 AM EDT) Trichomonas vaginalis Negative Negative 10/04/2024 1:57 PM EDT [facility] Gardnerella vaginalis Negative Negative 10/04/2024 1:57 PM EDT [facility] Mandy Species Negative Negative 1:57 PM EDT [facility] Swab Vaginal structure / Unknown 10/03/2024 10/03/2024 1:12 PM EDT us Luna Urbano MD LAB MICROBIOLOGY - GENER AL ORDERABLES Final Result [facility] [address] [place] [address], documented in this encounter Visit Diagnoses Diagnosis Acute vaginitis Unspecified vaginitis and vulvovaginitis documented in this encounter Care Teams Heat Treater Head Relationship Specialty Start Date End Date Sofie Montana MD PCP - General 12/31/10 documented as of this encounter
--- OUTSIDE RECORDS SUMMARY | 2024-12-31 15:27 | XMS_ITS | Patient Health Record ---
Author Organization [facility] Address [address] [facility] [address] [place] [address] Care Team Providers Care Plier Worker Name Role Phone Sofie Montana Primary Care [...] of [place] [address] [place] [phone] [id number] Becki Baez Self - patient is the insured Medical (General) History Medical History History ICD Code Other allergic rhinitis J30.89 Stress incontinence (female) (male) N39. 3 Other disorders of lung J98.4 Alcohol abuse, uncomplicated F10.10 Unspecified abdominal pain R10.9 Tobacco use disorder F17.200 Anxiety disorder, unspecified F41.9 Low back pain M54.5 Helicobacter pylori antibody positive
--- OUTSIDE RECORDS SUMMARY | 2024-12-31 15:27 | XMS_ITS | Clinical Summary ---
Author Organization [address] Address [address] [place] [phone] Phone Care Team Providers Care Twx Operator Name Role Phone Saige Vela MD Primary Care Provider Unava ilable Encounters Date Type Department Care Team Description 10/03/2024 Lab Requisition [facility] - Main Lab [address] [place] [address] Luna Urbano MD Acute vaginitis from Last 3 Months Surgical History Surgery Date Site/Laterality Comments TUBAL LIGATION 10/06/2016 Bilateral PROCEDURE: HISTORICAL TUBAL LIGATION; COMMENT: Dr. Zoltan Álvarez [facility] [place] Medical History Medical History Date Comments Depression DX:Depression Anxiety DX:Anxiety Lung density on x-ray 03/11/2017 DX:Lung de nsity on x-ray; COMMENT: LLL (CXR 03/11/2017), treated for pneumonia, ordered repeat CXR for 6 weeks and sent [employer] message Helicobacter pylori antibody positive 01/25/2019 DX:Helicobacter pylori antibody positive Family History Medical History Relation Name Comments Heart attack Father age 50 Arthritis Mother Leukemia Mother Mental illness Mother Breast cancer Neg Hx Colon cancer Neg Hx Relation Name Status Comments Brother Alive healthy Daughter Alive 14 Father (Age 50) Maternal Grandfather Alive adopted her mother Maternal Grandmother Alive adopted her mother Mother Alive leukemia Paternal Grandfather Paternal Grandmother Son Alive 18, 7 Social History Tobacco Use Types Packs/Day Years [...] on file Sexual Orientation Not on file Obstetrics History Plan of Treatment Health Maintenance Due Date Last Done Comments Hepatitis A Vaccines (1 of 2 - Risk 2-dose series) 1996 Hepatitis B Vaccines (1 of 3 - 19+ 3-dose series) 1996 Pneumococcal Vaccine: Pediatrics (0 to 5 Years) and At-Risk Patients (6 to 49 Years) (1 of 2 - PCV) 1996 Breast Cancer Screening 10/20/2020 10/20/2018 Depression Screening 04/13/2024 Colorectal Cancer Screening: Colonoscopy 08/23/2024 HIV Screening 08/23/2024 Hepatitis C Screening 08/23/2024 Social Influencers of Health Screening 08/23/2024 COVID-19 Vaccine ( season) 2024 Influenza Vaccine (#1) 2024 7, 01/03/2010, 05/04/2009, Additional history exists Cervical Cancer Screening: Pap Smear 08/23/2027 08/22/2024 DTaP,Tdap,and Td Vaccines (3 - Td or Tdap) 03/28/2029 03/28/2019, 03/25/2007 HIB Vaccines Aged Out No longer eligi ble based on patient's age to complete this topic HPV Vaccines Aged Out No longer eligi ble based on patient's age to complete this topic IPV Vaccines Aged Out No longer eligi ble based on patient's age to complete this topic MMR Vaccines Aged Out No longer eligi ble based on patient's age to complete this topic Meningococcal ACWY Vaccine Aged Out N o longer eligible based on patient's age to complete this topic Meningococcal B Vaccine Aged Out No l onger eligible based on patient's age to complete this topic RSV Immunization Patients Under 20 months Aged Out No longer eligible based on patient's age to complete this topic Varicella Vaccines Aged Out No longer eligible based on patient's age to complete this topic Procedures Procedure Name Priority Date/Time Associated Diagnosis Comments VAGINITIS PATHOGENS BY PCR Routine 10/03/2024 12:00 AM EDT Acute vaginitis PAP SMEAR Routine 08/22/2024 12:00 AM EDT Encounter for gynecological examination (general) (routine) without abnormal findings MINDY SCREENING DIGITAL Routine 10/20/2018 4:39 PM EDT Encounter for screening mammogram for malignant neoplasm of breast from Last 3 Months or Most Recently Relevant to Health Maintenance Results * Vaginitis pathogens molecular study (10/03/2024 12:00 AM EDT) Trichomonas vaginalis Negative Negative 10/04/2024 1:57 PM EDT [facility] Gardnerella vaginalis Negative Negative 10/04/2024 1:57 PM EDT [facility] Mandy Species Negative Negative 1:57 PM EDT [facility] Swab Vaginal structure / Unknown 10/03/2024 10/03/2024 1:12 PM EDT us Luna Urbano MD LAB MICROBIOLOGY - GENER AL ORDERABLES Final Result [facility] [address] [place] [address], * Pap smear (08/22/2024 12:00 AM EDT) Interpretation Negative for intraepithelial lesion or malignancy 08/24/2024 2:07 PM EDT [facility] General Categorization Negative 08/24/2024 2:07 PM EDT [facility] Other Findings Trichomonas vaginalis 08/24/2024 2:07 PM EDT [facility] Specimen Adequacy Satisfactory for evaluation, endocervical/walls sformation zone component present 08/24/2024 2:07 PM EDT [facility] Pap Methodology Liquid Based Pap Test 08/24/2024 2:07 PM EDT [facility] Disclaimer The Pap test is a screening test which carries an inherent false negative rate. These test results should be correlated with the patient's clinical findings and history. This Pap test was processed using an automated screening system. Technical cytopathology services provided by [facility], at [address] [place] [address] (CLIA # [id number]/German Owens MD, [employer].) 08/24/2024 2:07 PM EDT [facility] Console Pap Interpretation Reported 08/24/2024 2:07 PM EDT [facility] Brushing/Spatula Cervix uteri structure / Unknown 08/22/2024 08/23/2024 7:00 AM EDT us Luna Urbano MD LAB CYTOLOGY ORDERABLES Final Result Performing Organization Address City/State/[facility] Co de Phone Number [facility] [address] [place] [address], * MINDY SCREENING DIGITAL (10/20/2018 4:39 PM EDT) Anatomical Region Laterality Modality Mammography 10/20/2018 2:37 PM EDT Narrative 10/20/2018 4:39 PM EDT [facility] Diagnostic Imaging Department [address] [place] [address] Patient: BECKI SALINAS /Age/Sex: 1975 - 43 - F Unit#: [id number] Location/Status: SPDIMAM/REG CLI Mnemonic[facility] Order[facility] Physician: SAIGE VELA MD Mindy Screening Digital - 10/20/181458 History: Bilateral breast cancer screening. Technique: Digital mammography. Conventional CC and MLO projections with tomosynthesis MLO views and computer aided detection Findings: Comparison:None. Study represents a baseline examination. Breast tissue is mostly fatty replaced (category a density) bilaterally. There are benign calcifications on the right and small intramammary lymph nodes bilaterally. There is no suspicious group of microcalcification, no suspicious mass, architectural distortion or suspicious asymmetry. Impression: No evidence of malignancy. BIRADS category 2, benign findings, 3342F 55083, [address]38[address] Note: Patient information entered into a reminder system with a target due date for the next mammogram; PQRI II 7078N Dictating Physician: ASAEL MESSER MD Electronically Signed by: ASAEL MESSER MD Dic Date/Time: 10/20/181638 Sign date/Time: 10/20/181638 Procedure Note Asael Messer - 04/02/2022 [facility] Diagnostic Imaging Department [address] [place] [id number] Patient: WINSOMEBECKI CANTU Riddhi /Age/Sex: 1975 - 43 - F Unit#: [id number] Location/Status: [facility] CLI Mnemonic/Ordering Site: [facility] Ordering Physician: SAIGE VELA MD Mindy Screening Digital - 10/20/18 - 1459 History: Bilateral breast cancer screening. Technique: Digital mammography. Conventional CC and MLO projections with tomosynthesis MLO views and computer aided detection Findings: Comparison:None. Study represents a baseline examination. Breast tissue is mostly fatty replaced (category a density) bilaterally.There are benign calcifications on the right and small intramammary lymphnodes bilaterally. There is no suspicious group of microcalcification, nosuspicious mass, architectural distortion or suspicious asymmetry. Impression: No evidence of malignancy. BIRADS category 2, benign findings, 3342F [address], [address] Note: Patient information entered into a reminder system with a targetdue date for the next mammogram; PQRI II 7025F Dictating Physician: ASAEL MESSER MD Electronically Signed by: ASAEL MESSER MD Dic Date/Time: 10/20/181638 Sign date/Time: 10/20/181638 Saige Vela MD IMG BI PROCEDURES Final Resu lt from Last 3 Months or Most Recently Relevant to Health Maintenance Insurance [facility] Member Subscriber Plan / Payer (Ef fective 2018-Present) Name:BECKI SALINAS Relation to Subscriber:Self Name:Becki Salinas Payer ID:[id number] Group ID:[id number] Type:Not on file Address: [address] [place] [address] Care Teams Twx Operator Relationship Specialty Start Date End Date Saige Vela MD PCP - General 12/31/10
--- OUTSIDE RECORDS SUMMARY | 2024-12-31 15:27 | XMS_ITS ---
Author Name [facility] Organization Unknown Care Team Organization Name Specialty Phone Email Start Date End [facility] 04/10/2024
[2024-12-31 16:03] VITALS: BP 152/97; PULSE 80; RESP 18; TEMP 36.1; O2SAT 97
[2024-12-31 16:14] LABS: CT PCR Urine NOT DETECTED (Not Detect.); NG PCR Urine NOT DETECTED (Not Detect.)
[2024-12-31 16:29] VITALS: BP 152/97; PULSE 80; RESP 18; TEMP 36.1; O2SAT 97
[2025-01-01 09:50] LABS: Bacterial Vaginosis PCR POSITIVE (Negative); Candida Group PCR NOT DETECTED (Not Detect); Candida glab krusei PCR NOT DETECTED (Not Detect); Trichomonas vaginalis PCR DETECTED (Not Detect)
== END 2024-12-31 16:30 | disposition home or self-care (01) ==
PROVIDERS: Nurse Practitioner Family; Physician Assistant Medical; Emergency Provider Emergency Medicine Emergency Medical Services
DX: N39.0 Urinary tract infection, site not specified (principal); R35.0 Frequency of micturition; R30.0 Dysuria; M54.50 Low back pain, unspecified; Z79.899 Other long term (current) drug therapy
CPT/HCPCS: 36415; 80048; 80076; 81001; 81515; 84702; 85025; 87086; 87088; 87186; 87491; 87591; 99283; 99284

== ENCOUNTER 2025-03-12 21:58 | Emergency (ER) | payer OTHER, SELFPAY ==
--- OUTSIDE RECORDS SUMMARY | 2025-03-09 23:59 | XMS_ITS | Continuity of Care Document ---
Author Organization [facility] Address [address] [place] [address]- Care Team Providers Care Systems Test Engineer Name Role Phone Juana POWER, Mildred Mortesnen Primary Care Physician Encounter [facility] Date(s): 02/07/25 - 03/09/25 [facility]/[address] [address]- Encounter Type: Triage Allergies, Adverse Reactions, Alerts Substance Criticality Severity Reaction Reaction Severity Status cephalexin Active Medrol Dosepak face red and swollen Active Immunizations Given and Recorded Vaccine Date Status Refusal Reason influenza virus vaccine, inactivated 04/24/22 Give n influenza virus vaccine, inactivated 03/16/19 Wolf rded influenza virus vaccine, inactivated 01/03/10 Wolf rded influenza virus vaccine, inactivated 05/04/09 Wolf rded influenza virus vaccine, inactivated 03/25/07 Wolf rded SARS-CoV-2 (COVID-19) mRNA BNT-162b2 vac 12/05/20 Recorded SARS-CoV-2 (COVID-19) mRNA BNT-162b2 vac 11/14/20 Given tetanus/diphtheria/pertussis, acel(Tdap) 03/28/19 Recorded tetanus/diphtheria/pertussis, acel(Tdap) 03/25/07 Recorded influ virus vac, H1N1, inactive(oldterm) 05/04/09 Recorded Medications Albuterol (Eqv-Ventolin HFA) 90 mcg/inh inhalation aerosol 2 inhalation = 180 mcg, Inhalation, Every 4 hours, PRN as needed for shortness of breath or wheezing, # 18 Gm, 2 Refills, Maintenance, 03/06/25 12:35:00 PM EST, Aerosol, [facility]/pharmacy #1972, Partial fill upon patient request if the prescription is for a schedule II opioid drug., 2 inhalation Inhalation Every 4 hours,PRN:as needed for shortness of breath or wheezing, 163, cm, 03/06/25 11:14:00 EST,Height, 101.5, kg, 03/06/25 11:14:00 EST, Dry Weight Start Date: 03/06/25 Status: Ordered Medication Dispense Status: Completed Quantity: 18.0 Unit: g Total Allowed Fills: 3 Fills Dispensed: 0 ARIPiprazole 2 mg oral tablet 2 mg, 1, tablet, By Mouth, Daily, # 30 tablet, Refills 0, Maintenance, 07/07/24 11:24:00 AM EDT, Partial fill upon patient request if the prescription is for a schedule II opioid drug. Start Date: 07/07/24 Status: Ordered Medication Dispense Status: Completed Quantity: 30.0 Unit: tablet Total Allowed Fills: 1 Fills Dispensed: 0 clonazePAM 1 mg oral tablet 1 tablet = 1 mg, By Mouth, Daily, PRN Anxiety, 0 Refills, Maintenance, 07/23/22 9:41:00 AM EDT, Partial fill upon patient request if the prescription is for a schedule II opioid drug. Start Date: 07/23/22 Status: Ordered Medication Dispense Status: Completed Total Allowed Fills: 1 Fills Dispensed: 0 diclofenac 1% topical gel 1 application, Topically, 4 times a day, PRN Pain , Moderate, to knees, # 100 Gm, 1 Refills, Maintenance, 03/17/23 1:35:00 PM EST, Gel, [facility]/pharmacy #1972, Partial fill upon patient request if the prescription is for a schedule II opioid drug., 165, cm, 03/17/23 12:44:00 EST, Height, 95.5, kg, 12/05/22 22:11:00 EDT, Dry Weight Start Date: 03/17/23 Status: Ordered Medication Dispense Status: Completed Quantity: 100.0 Unit: g Total Allowed Fills: 2 Fills Dispensed: 0 gabapentin 100 mg oral capsule 200 mg, 2, capsule, By Mouth, 3 times a day, # 120 capsule, Refills 0, Maintenance, 09/04/23 2:43:00AM EDT, Partial fill upon patient request if the prescription is for a schedule II opioid drug. Start Date: 09/04/23 Status: Ordered Medication Dispense Status: Completed Quantity: 120.0 Unit: capsule Total Allowed Fills: 1 Fills Dispensed: 0 hydrOXYzine hydrochloride 50 mg oral tablet TAKE 1 TABLET BY MOUTH 3 TIMES A DAY NEEDED FOR PANIC/ANXIETY Start Date: 07/11/21 Status: Ordered Medication Dispense Status: Completed Total Allowed Fills: 1 Fills Dispensed: 0 ibuprofen 800 mg oral tablet See Instructions, TAKE 1 TABLET BY MOUTH THREE TIMES A DAY NEEDED FOR PAIN WITH FOOD OR MILK, # 90 tablet, Refills 0, Maintenance, 07/09/23 9:46:00 AM EDT, Instructions Replace Required Details, Route to Pharmacy Electronically, [id number], 163, cm, 06/23/23 11:26:00 EDT, Height, 96.9, kg, 06/01/23 18:20:00 EST, Dry Weight Start Date: 07/09/23 Status: Ordered Medication Dispense Status: Completed Quantity: 90.0 Unit: tablet Total Allowed Fills: 1 Fills Dispensed: 0 ivermectin 0.5% topical lotion 1 application, Topically, Once, leave on hair for 10 minutes wash hands thoroughly after application. only one treatment needed, # 234 mL, 1 Refills, Soft Stop, 02/08/25 2:53:00 PM EDT, Lotion, [facility]/pharmacy #1972, Partial fill upon patient request if the prescription is for a schedule II opioid drug., 1 application Topically Once,Instr:leave on hair for 10 minutes; wash hands thoroughly after application. only one treatment needed, 163, cm, 07/07/24 9:48:00 EDT, Height, 97.81, kg, 07/01/24 13:50:00 EDT, Dry Weight Start Date: 02/08/25 Status: Ordered Medication Dispense Status: Completed Quantity: 234.0 Unit: mL Total Allowed Fills: 2 Fills Dispensed: 0 nicotine 14 mg/24 hr transdermal film, extended release 1 patch, Topically, Daily, apply to skin. do not use with cigarettes, # 30 patch, 3 Refills, Maintenance, 07/07/24 11:29:00 AM EDT, Patch, [facility]/pharmacy #1972, Partial fill upon patient request if the prescription is for a schedule II opioid drug., 1 patch Topically Daily,Instr:apply to skin. do not use with cigarettes, 163, cm, 07/07/24 9:48:00 EDT, Height, 97.81, kg, 07/01/24 13:50:00 EDT, Dry Weight Start Date: 07/07/24 Status: Ordered Medication Dispense Status: Completed Quantity: 30.0 Unit: patch Total Allowed Fills: 4 Fills Dispensed: 0 Nicotine 2 mg gum 1 each = 2 mg, Chew, Every 2 hours, PRN for smoking cessation, as directed on package labeling. do not use with cigarettes, # 120 each, 1 Refills, Maintenance, 07/07/24 11:29:00 AM EDT, Gum, [facility]/pharmacy #1972, Partial fill upon patient request if the prescription is for a schedule II opioid drug., 163, cm, 07/07/24 9:48:00 EDT, Height, 97.81, kg, 07/01/24 13:50:00 EDT, Dry Weight Start Date: 07/07/24 Status: Ordered Medication Dispense Status: Completed Quantity: 120.0 Unit: each Total Allowed Fills: 2 Fills Dispensed: 0 ondansetron 4 mg oral tablet, disintegrating See Instructions, 1-2 tablet By Mouth 3 times a day as needed for nausea, # 21 each, 0 Refills, Acute 03/12/25 12:37:00 PM EST, 03/06/25 12:36:00 PM EST, [facility]/pharmacy #1972, Partial fill upon patientrequest if the prescription is for a schedule II opioid drug., 163, cm, 03/06/25 11:14:00 EST, Height, 101.5, kg, 03/06/25 11:14:00 EST, Dry Weight Start Date: 03/06/25 Stop Date: 03/12/25 Status: Ordered Medication Dispense Status: Completed Quantity: 21.0 Unit: each Total Allowed Fills: 1 Fills Dispensed: 0 PEG-3350 with Electrolytes (Eqv-GoLYTELY) oral powder for reconstitution 240 mL, By Mouth, Every 15 minutes, Split prep method. 1/2 gallon evening prior to colonscopy and 1/2 gallon 6h prior to start of colonoscopy, # 4,000 mL, 0 Refills, Maintenance, 12/16/23 11:16:00 AM EDT, [facility]pharm[facility] #1972, Colonosopy Date: 01/07/24, 240 mL By Mouth Every 15 minutes,Instr:Split prepmethod. 1/2 gallon evening prior to colonscopy and 1/2 gallon 6h prior to start of colonoscopy, 163, cm, 09/04/23 12:51:00 EDT, Height, 93.3, kg, 09/04/23 2:24:00 EDT, Dry Weight Start Date: 12/16/23 Status: Ordered Medication Dispense Status: Completed Quantity: 4000.0 Unit: mL Total Allowed Fills: 1 Fills Dispensed: 0 permethrin 5% topical cream 1 application, Topically, Once, to skin head to feet, remove by washing after 8 to 14 hours, # 60 Gm, 0 Refills, Soft Stop, 01/18/24 6:32:00 PM EDT, Cream, [facility]acy [facility]1972, Partial fill upon patient request if the prescription is for a schedule II opioid drug., 1 application Topically Once,Instr:to skin head to feet, remove by washing after 8 to 14 hours, 163, cm, 01/15/24 14:44:00 EDT, Height,93.3, kg, 09/04/23 2:24:00 EDT, Dry Weight Start Date: 01/18/24 Status: Ordered Medication Dispense Status: Completed Quantity: 60.0 Unit: g Total Allowed Fills: 1 Fills Dispensed: 0 permethrin 5% topical cream 1 application, Topically, Once, Apply to skin from head to soles. Leave on 8-10 hours then wash off, # 60 mL, 0 Refills, Soft Stop, 01/15/24 3:26:00 PM EDT, Lotion, [facility], Partial fill upon patient request if the prescription is for a schedule II opioid drug., 1 application Topically Onc e,Instr:Apply to skin from head to soles. Leave on 8-10 hours then wash off, 163, cm, 01/15/24 14:44:00 EDT, Height, 93.3, kg, 09/04/23 2:24:00 EDT, Dry Weight Start Date: 01/15/24 Status: Ordered Medication Dispense Status: Completed Quantity: 60.0 Unit: mL Total Allowed Fills: 1 Fills Dispensed: 0 ProAir HFA 90 mcg/inh inhalation aerosol with adapter 180 mcg, 2, puffs, Inhalation, Every 6 hours, PRN, # 3 each, Refills 2, Tot. Refills 2, Maintenance, 04/18/21 8:27:00 AM EST, Inhaler, Route to Pharmacy Electronically, [id number], [facility]/pharmacy #1972, 165, cm, 12/06/20 9:32:00 EDT, Height, 82, kg, 10/13/20 20:54:00 EDT, Dry Weight Start Date: 04/18/21 Status: Ordered Medication Dispense Status: Completed Quantity: 3.0 Unit: each Total Allowed Fills: 3 Fills Dispensed: 0 solifenacin 5 mg oral tablet 1 tablet = 5 mg, By Mouth, Daily, may inc to 2 tabs if needed for urge incon. insur will not cover mirabegron, # 90 tablet, 1 Refills, Maintenance, 07/14/24 9:52:00 AM EDT, Tablet, [facility]/pharmacy #1972, Partial fill upon patient request if the prescription is for a schedule II opioid drug., 163, cm, 07/07/24 9:48:00 EDT, Height, 97.81, kg, 07/01/24 13:50:00 EDT, Dry Weight Start Date: 07/14/24 Status: Ordered Medication Dispense Status: Completed Quantity: 90.0 Unit: tablet Total Allowed Fills: 2 Fills Dispensed: 0 venlafaxine 37.5 mg oral capsule, extended release 37.5 mg, 1, capsule, By Mouth, Daily, # 30 capsule, Refills 5, Maintenance, 09/04/23 2:44:00 AM EDT,Partial fill upon patient request if the prescription is for a schedule II opioid drug. Start Date: 09/04/23 Status: Ordered Medication Dispense Status: Completed Quantity: 30.0 Unit: capsule Total Allowed Fills: 1 Fills Dispensed: 0 venlafaxine 75 mg oral capsule, extended release 0 Refills, Maintenance, 07/07/24 11:24:00 AM EDT, Partial fill upon patient request if the prescription is for a schedule II opioid drug. Start Date: 07/07/24 Status: Ordered Medication Dispense Status: Completed Total Allowed Fills: 1 Fills Dispensed: 0 Problem List Condition Confirmation Course Effective Dates Status H ealth Status Informant Alcohol use disorder in remission Confirmed Active Anxiety Confirmed Active Asthma Confirmed Active Marijuana use, continuous Confirmed Active Chondromalacia of left knee Confirmed Active Depression Confirmed Active Chronic knee pain Confirmed Active Lumbago with sciatica, right side Confirmed Active Major depression in partial remission Confirmed Active Urinary incontinence, mixed Confirmed Active Chronic leg pain Confirmed Active Pain and swelling of left knee Confirmed Active *[id number] e Partner Innocent Philippe Confirmed Active Seasonal allergies Confirmed Active Severe obesity (BMI 35.0-39.9) with comorbidity Confirmed Active Tinnitus Confirmed Active Tobacco use disorder Confirmed Active Chronic venous hypertension Confirmed Active Social History Social History Type Response Smoking Status 10 or more cigarette s (1/2 pack or more)/day in last 30 days entered on: 07/01/24 Sex Female Sex Representation Female (finding) Patient Care team information Care Team Personnel Name: Mildred Arias MD Position: [facility] Physician - Primary Care Member Role: PCP Address: [address] [place] [address] Telecom: Care Team Related Persons Name: MIRNA MONTANEZ Name: KOFI DOLL Name: GEETA SALINAS Name: JOHAN SALINAS Insurance Providers Guarantor name: FARHAN SALINAS Health Plan Information #: 1 Payer: [facility] Payer Identifier: NA Member Number: [id number] Group Number: [id number] Subscriber Identifier: NA Relationship to Subscriber: self Coverage Type: Medicare Managed Care (Includes Medicare Advantage Plans) Coverage Verification Date: NA Telecom: NA Address:
--- NOTE | ~2025-03-12 | XR_ITS ---
CLINICAL HISTORY: cough, SOB 2 view chest x-ray Comparison: None provided Findings: No consolidation or effusion. Normal size heart. No acute fracture. IMPRESSION: 1. No acute findings. This document has been electronically signed by: Kristan Sevilla MD on 03/12/2025 22:54:43
--- NOTE | 2025-03-12 21:59 | ECG_ITS ---
Test Reason : chest pain Blood Pressure : */* mmHG Vent. Rate : 74 BPM Atrial Rate : 74 BPM P-R Int : 152 ms QRS Dur : 72 ms QT Int : 384 ms P-R-T Axes : 79 64 53 degrees QTcB Int : 426 ms Normal sinus rhythm with sinus arrhythmia Normal ECG No previous ECGs available Referred By: Generic ED Physician Electronically Signed By: DOMINGUEZ SALAS
[2025-03-12 22:07] VITALS: BP 164/90; PULSE 81; RESP 20; TEMP 36.7; O2SAT 97; BMI 36.9
[2025-03-12 22:53] LABS: Hematocrit 41.6 % (37.0-47.0); Hemoglobin 13.9 g/dl (12.0-16.0); Imm Gran Abs Auto 0.02 X10*3/uL (0.00-0.03); Imm Gran Pct Auto 0.3 % (0.0-0.4); Lymphocytes Absolute Auto 2.6 X10*3/uL (1.2-4.9); MANUAL DIFF FLAG NO; Mean Corpuscular HGB Conc 33.4 g/dl (31.0-35.0); Mean Corpuscular Hemoglobin 29.6 pg (27.0-33.0); Mean Corpuscular Volume 88.7 fL (80.0-98.0); NRBC Abs Auto 0.000 X10*3/uL (0.0-0.012); NRBC Pct Auto 0.0 /100WBC (0.0-0.2); Platelet Count 261 X10*3/uL (160-400); Red Blood Count 4.69 X10*6/uL (4.20-5.50); White Blood Count 7.3 X10*3/uL (4.8-10.8)
[2025-03-12 23:10] LABS: COVID-19 Test Negative (Negative); IDNOW Serial# 16C4AD1C
[2025-03-12 23:11] LABS: Anion Gap 12 (12-20); Blood Urea Nitrogen 9 mg/dL (9-16); Calcium 8.8 mg/dL (8.4-10.2); Carbon Dioxide 25 mmol/L (22-29); Chloride 107 mmol/L (96-108); Creatinine Clr Calc Pharmacy 111.0; Estimated Glomerular Filt Rate > 60; IDNOW Serial# 152EDE1D; Influenza B2 Negative (Negative); Potassium 3.6 mmol/L (3.3-5.1); Sodium 140 mmol/L (135-145)
[2025-03-12 23:13] LABS: Troponin-I High Sensitivity < 2.7 ng/L (<3.5-17.0)
[2025-03-13 01:07] VITALS: BP 117/79; PULSE 80; RESP 16; TEMP 36.9; O2SAT 100
--- NOTE | 2025-03-13 01:15 | ED_ITS ---
HPI - Chest Pain General Chief Complaint: Chest Pain Stated Complaint: chest pain, sob, cough Time Seen by Provider: 03/13/25 01:03 Source: patient Mode of arrival: ambulatory Limitations: no limitations History of Present Illness ED Provider: Dr. Bronwyn Hutchinson HPI narrative: Patient comes to the emergency room with multiple complaints, including possible , increased anxiety without SI or HI, complaining of cough for 1 month. Patient reports that she has chest pain whenever she coughs, otherwise no chest pain. Denies fever or chills. Related Data Home Medications ?Medication ?Instructions ?Recorded ?Confirmed albuterol sulfate 90 mcg/actuation 2 puff inhalation Q 6H PRN 04/22/21 04/22/21 aerosol inhaler Shortness Of Breath aripiprazole 15 mg tablet 7.5 mg PO DAILY 04/22/2102/01 clonazepam 1 mg tablet (Klonopin) 1 mg PO DAILY PRN An xiety 04/22/21 04/22/21 fluticasone propionate 44 2 puff inhalation BID 04/22/21 mcg/actuation HFA aerosol inhaler melatonin 10 mg tablet 10 mg PO BEDTIME PRN Insomni a 04/22/21 04/22/21 propranolol 40 mg tablet 20 mg PO TID PRN panic/anxie ty 04/22/21 04/22/21 Previous Rx's ?Medication ?Instructions ?Recorded hydroxyzine HCl 50 mg tablet 50 mg PO TID PRN anxiety, 04/22/21 agitation #90 tabs naltrexone 50 mg tablet 50 mg PO DAILY 30 days #30 t abs 05/06/21 naltrexone microspheres 380 mg 380 mg IM Q4W 30 days # 1 ea 10/28/21 intramuscular suspension,extended release (Vivitrol) acamprosate 333 mg tablet,delayed 666 mg (2 x 333 mg) PO TID 30 days 01/06/22 release #180 tabs albuterol sulfate 90 mcg/actuation 2 puff inhalation Q 4-6H PRN 01/14/22 aerosol inhaler shortness of breath or wheez ing #6.7 grams guaifenesin 600 mg tablet, 600 mg PO Q12H PRN congesti on #14 01/14/22 extended release 12 hr tabs prednisone 20 mg tablet 40 mg (2 x 20 mg) PO DAILY 5 days 01/14/22 #10 tabs acetaminophen 500 mg tablet 500 mg PO Q6H PRN fever or pain 02/21/22 (Tylenol Extra Strength) #14 tabs cephalexin 500 mg capsule 500 mg PO QID 7 days #28 cap s 02/21/22 doxycycline hyclate 100 mg tablet 100 mg PO BID 7 days #14 tabs 02/21/22 ibuprofen 800 mg tablet 800 mg PO Q8H PRN pain #14 t abs 02/21/22 ketorolac 10 mg tablet 10 mg PO TID PRN pain 5 days #15 05/03/22 tabs cyclobenzaprine 10 mg tablet 10 mg PO TID PRN muscle s pasm #14 08/27/22 tabs ibuprofen 600 mg tablet 600 mg PO Q8H PRN pain #14 t abs 08/27/22 lidocaine 5 % topical patch 1 patch topical DAILY #15 ea 08/27/22 ibuprofen 600 mg tablet 600 mg PO Q6H PRN fever or p ain 10/21/22 #30 tabs oxycodone 5 mg tablet 5 mg PO Q6H PRN pain #20 tab s 10/21/22 prednisone 20 mg tablet 40 mg (2 x 20 mg) PO DAILY # 10 tabs 10/21/22 oxycodone 5 mg capsule 5 mg PO Q8H PRN pain (scale score 10/22/22 7-10) 3 days #9 caps nitrofurantoin 100 mg PO BID 5 days #10 cap s 11/08/24 monohydrate/macrocrystals 100 mg capsule (Macrobid) nitrofurantoin 100 mg PO Q12H 5 days #10 ca ps 12/31/24 monohydrate/macrocrystals 100 mg capsule (Macrobid) phenazopyridine 200 mg tablet 200 mg PO TID PRN pain 9 doses #9 12/31/24 (Pyridium) tabs metronidazole 500 mg tablet 500 mg PO BID #14 tabs prednisone 50 mg tablet 50 mg PO DAILY #4 tabs 03/13 Allergies Allergy/AdvReac Type Severity Reaction Status Date / Time fluconazole (Diflucan) Allergy Unknown unk Verified 03/12/25 22:15 Review of Systems 2 Review of Systems: Constitutional : No Weight loss, No Fever, No Chills, No Night Sweats, No Fatigue, No Malaise ENT/Mouth : No Hearing loss, No Ear Pain, No Nasal Congestion, No Sinus Pain, No Hoarseness, No sore throat, No Rhinorrhea, No Swallowing Difficulty Eyes: No Eye Pain, No Swelling, No Redness, No Foreign Body, No Discharge, No Vision Changes Cardiovascular : Complaining of chest pain with cough only, no chest pain at rest without coughing come No SOB, No Dyspnea on Exertion, No Orthopnea, No Edema, No Palpitations Respiratory : Complaining of cough that causes chest pain. No Sputum, patient reports intermittent wheezing that responds well to albuterol, No Smoke Exposure, No Dyspnea Gastrointestinal : No Nausea, No Vomiting, No Diarrhea, No Constipation, No abdominal Pain, No Hematochezia, No Melena Genitourinary : Reporting amenorrhea for 2 minutes, No Dysuria, No Urinary Frequency, No Hematuria, No Urinary Incontinence, No Urgency, No Flank Pain, No Urinary Flow Changes, No Hesitancy Musculoskeletal : No joint pain, No Myalgias, No Joint Swelling Skin : No Skin Lesions, No rash Neuro : No Weakness, No Numbness, No Paresthesias, No Loss of Consciousness, No Dizziness, No Headache Psych : No Anxiety/Panic, No Depression, No SI/HI/AH/VH, No Social Issues, Heme/Lymph: No Bruising, No Bleeding,No Lymphadenopathy Endocrine : No Polyuria, No Polydipsia, No Temperature Intolerance PMFSH Past Medical History Medical History Anxiety Social History Social History Household Members: Children Alcohol intake: current Alcohol intake frequency: holidays/special occasions only Patient Tobacco Use Status: Current everyday Tobacco user Tobacco use type: Cigarette Cigarettes Per Day: 10 Years Smoked: Ari age 16 Substance Use Type: Marijuana Current occupational status: employed 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 Oriented X3. No acute distress. Eyes: Pupils equal, round and reactive to light. ENT: Pharynx normal. Neck: Normal inspection. Neck supple. No lymph nodes noted. No crepitus CVS: Normal heart rate and rhythm. Pulses normal. Normal S1 and S2 Respiratory: No respiratory distress. Mild bilateral rales bilaterally, no wheezing, no crackles Abdomen: Soft and nontender. No rigidity. No distention. Skin: Skin warm and dry. Normal skin color. Normal skin turgor. Extremities: No lower extremity edema. No Lacerations. No Rash Neuro: Oriented X 3. No motor deficit. No sensory deficit. Moving all extremities. No slurred speech. CN 2 through 12 grossly intact Psych: calm, cooperative, normal affect Vital Signs: Vital Signs: Last Vital Signs Temp 98.4 F 03/13/25 01:07 Pulse 80 03/13/25 01:07 Resp 16 03/13/25 01:07 BP 117/79 03/13/25 01:07 Pulse Ox 100 03/13/25 01:07 O2 Del Method Room Air 03/13/25 01:07 BMI result Body Mass Index 36.9 Medical Decision Making Medical Decision Making [facility] Narrative: My interpretation of labs: Patient's white blood cell count within normal limits, no abnormality in patient's chemistry, normal troponin, hCG less than 2, negative for , serology negative for COVID, influenza a, influenza B Chest x-ray does not show any acute abnormality I discussed with the patient that the amenorrhea is likely secondary to perimenopausal. HCG was negative I discussed with the patient that she likely has a viral bronchitis, the cough will probably last 6-8 weeks Patient states that she has plenty of albuterol at home. Patient was given the 1st dose of prednisone here in the emergency room. Lab Data [facility] Lab Attestation statement: I reviewed the patient's lab results. 03/12/25 22:46 03/12/25 22:46 Labs: Lab Results 03/12/25 Range/Units 22:46 WBC 7.3 (4.8-10.8) X10*3/uL RBC 4.69 (4.20-5.50) X10*6/uL Hgb 13.9 (12.0-16.0) g/dl Hct 41.6 (37.0-47.0) % MCV 88.7 (80.0-98.0) fL MCH 29.6 (27.0-33.0) pg MCHC 33.4 (31.0-35.0) g/dl RDW 14.5 (11.0-16.0) % Plt Count 261 (160-400) X10*3/uL MPV 9.2 L (9.4-12.3) fL Immature Gran % (Auto) 0.3 (0.0-0.4) % Neut % (Auto) 47.7 (45-73) % Lymph % (Auto) 35.7 (20-40) % [place] % (Auto) 12.1 H (2-11) % Eos % (Auto) 3.2 (0-4) % Baso % (Auto) 1.0 (0-2) % Lymph # (Auto) 2.6 (1.2-4.9) X10*3/uL [place] # (Auto) 0.9 (0.1-1.2) X10*3/uL Eos # (Auto) 0.2 (0.0-0.4) X10*3/uL Baso # (Auto) 0.1 (0.0-0.2) X10*3/uL Abs Immat Gran (auto) 0.02 (0.00-0.03) X10*3/uL Absolute Neuts (auto) 3.5 (2.0-8.3) x10*3/uL Absolute Nucleated RBC 0.000 (0.0-0.012) X10*3/uL Nucleated RBC % (auto) 0.0 (0.0-0.2) /100WBC Sodium 140 (135-145) mmol/L Potassium 3.6 (3.3-5.1) mmol/L Chloride 107 (96-108) mmol/L Carbon Dioxide 25 (22-29) mmol/L Anion Gap 12 (12-20) BUN 9 (9-16) mg/dL Creatinine 0.71 (0.5-1.4) mg/dL Estim Creat Clear Calc 111.0 Estimated GFR > 60 Random Glucose 96 (60-115) mg/dL Calcium 8.8 (8.4-10.2) mg/dL Troponin I High Sens < 2.7 (<3.5-17.0) ng/L Beta HCG, Quant < 2 mIU/mL COVID-19 (LILLI) Negative (Negative) COVID-19 Clin Com See Note Influenza Type A (MICHELLE) Negative (Negative) Influenza Type B (MICHELLE) Negative (Negative) Influenza A & B Note See Note Independent Interpretation I performed an independent interpretation of an: Plain X-Ray Radiology Impression Discussion of test interpretation with radiology: I have reviewed the radiologist's reading. Radiologist Impression: No consolidation or effusion. Normal size heart. No acute fracture. IMPRESSION: 1. No acute findings. Discharge Plan Discharge Clinical Impression: Viral bronchitis Patient Disposition: Home, Self-Care Instructions: Acute Bronchitis (ED) Additional Instructions: Please follow-up with your primary care physician tomorrow. If you have any worsening or new symptoms, please return to the emergency room or call 911 Prescriptions: New prednisone 50 mg tablet 50 mg PO DAILY Qty: 4 0RF No Action albuterol sulfate 90 mcg/actuation HFA aerosol inhaler 2 puff inhalation Q4-6H PRN (Reason: shortness of breath or wheezing) Qty: 6.7 0RF prednisone 20 mg tablet 40 mg PO DAILY 5 Days Qty: 10 0RF guaifenesin 600 mg tablet extended release 12hr 600 mg PO Q12H PRN (Reason: congestion) Qty: 14 0RF clonazepam [Klonopin] 1 mg Tablet 1 mg PO DAILY PRN (Reason: Anxiety) propranolol 40 mg Tablet 20 mg PO TID PRN (Reason: panic/anxiety) Rx Instructions: Take 1/2 tab three times a day as needed. Flovent 44 mcg/actuation Hfa Aerosol Inhaler 2 puff INHALATION BID albuterol sulfate 90 mcg/actuation Hfa Aerosol Inhaler 2 puff INHALATION Q6H PRN (Reason: Shortness Of Breath) aripiprazole 15 mg Tablet 7.5 mg PO DAILY Rx Instructions: take 1/2 tab daily. melatonin 10 mg Tablet 10 mg PO BEDTIME PRN (Reason: Insomnia) hydroxyzine HCl 50 mg tablet 50 mg PO TID PRN (Reason: anxiety, agitation) Qty: 90 0RF naltrexone 50 mg tablet 50 mg PO DAILY 30 Days Qty: 30 0RF cephalexin 500 mg capsule 500 mg PO QID 7 Days Qty: 28 0RF doxycycline hyclate 100 mg tablet 100 mg PO BID 7 Days Qty: 14 0RF ibuprofen 800 mg tablet 800 mg PO Q8H PRN (Reason: pain) Qty: 14 0RF acetaminophen [Tylenol Extra Strength] 500 mg tablet 500 mg PO Q6H PRN (Reason: fever or pain) Qty: 14 0RF ketorolac 10 mg tablet 10 mg PO TID PRN (Reason: pain) 5 Days Qty: 15 0RF Rx Instructions: Tolerated IM in the department prednisone 20 mg tablet 40 mg PO DAILY Qty: 10 0RF ibuprofen 600 mg tablet 600 mg PO Q6H PRN (Reason: fever or pain) Qty: 30 0RF oxycodone 5 mg tablet 5 mg PO Q6H PRN (Reason: pain) Qty: 20 0RF Rx Instructions: Partial Fill upon patient request. oxycodone 5 mg capsule 5 mg PO Q8H PRN (Reason: pain (scale score 7-10)) 3 Days Qty: 9 0RF Rx Instructions: Partial Fill upon patient request. cyclobenzaprine 10 mg tablet 10 mg PO TID PRN (Reason: muscle spasm) Qty: 14 0RF ibuprofen 600 mg tablet 600 mg PO Q8H PRN (Reason: pain) Qty: 14 0RF lidocaine 5 % adhesive patch,medicated 1 patch topical DAILY Qty: 15 0RF Rx Instructions: leave on most painful area for up to 12 hrs nitrofurantoin monohyd/m-cryst [Macrobid] 100 mg capsule 100 mg PO BID 5 Days Qty: 10 0RF Rx Instructions: must administer with a meal/food nitrofurantoin monohyd/m-cryst [Macrobid] 100 mg capsule 100 mg PO Q12H 5 Days Qty: 10 0RF Rx Instructions: must administer with a meal/food phenazopyridine [Pyridium] 200 mg tablet 200 mg PO TID PRN (Reason: pain) Qty: 9 0RF metronidazole 500 mg tablet 500 mg PO BID Qty: 14 0RF Vivitrol 380 mg suspension,extended rel recon 380 mg IM Q4W 30 Days Qty: 1 5RF acamprosate 333 mg tablet,delayed release (DR/EC) 666 mg PO TID 30 Days Qty: 180 3RF Print Language: Mosotho
--- OUTSIDE RECORDS SUMMARY | 2025-03-13 01:15 | XMS_ITS | Encounter Summary ---
Author Organization [facility] Address [address] [place] [address] Care Team Providers Care Wire Spiral Binder Name Role Phone Sofie Montana MD Primary Care Provider Gurpreet osman Encounter Details Date Type Department Care Team (Latest Contact Info) Description 08/22/2024 Lab Requisition [facility] - Main Lab [address] [facility] [place] [address] Luna Urbano MD [address] [facility] [address] [place] [address] Acute vaginitis; Encounter for screening [...] vaginalis Positive(A) Negative 08/23/2024 9:04 AM EDT [facility] Gardnerella vaginalis Positive(A) Negative 08/23/2024 9:04 AM EDT [facility] Mandy Species Negative Negative 9:04 AM EDT [facility] Swab Vaginal structure / Unknown 08/22/2024 08/22/2024 5:59 PM EDT us Luna Urbano MD LAB MICROBIOLOGY - GENER AL ORDERABLES Final Result Performing Organization Address City/[facility]/ZIP Co de Phone Number [facility] [address] [place] [address], [place] [phone] * Chlamydia trachomatis and Neisseria gonorrhoeae molecular study (08/22/2024 12:00 AM EDT) Neisseria gonorrhoeae PCR Negative Negative LAB MOLECULAR DIAGNOSTICS METHOD 08/23/2024 9:09 AM EDT [facility] Chlamydia trachomatis PCR Negative Negative LAB MOLECULAR DIAGNOSTICS METHOD 08/23/2024 9:09 AM EDT [facility] Swab Cervix uteri structure / Unknown 08/22/2024 08/22/2024 5:59 PM EDT us Luna Urbano MD LAB MICROBIOLOGY - GENER AL ORDERABLES Final Result [facility] [address] [place] [address], [place] [phone] documented in this encounter Visit Diagnoses Diagnosis Acute vaginitis Unspecified vaginitis and vulvovaginitis Encounter for screening for infections with a predominantly sexual mode of transmission documented in this encounter Care Teams Wire Spiral Binder Relationship Specialty Start Date End Date Sofie Montana MD PCP - General 12/31/10 documented as of this encounter
--- OUTSIDE RECORDS SUMMARY | 2025-03-13 01:15 | XMS_ITS | Clinical Summary ---
Author Organization [address] Address [address] [place] [phone] Phone Care Team Providers Care In Processing Instructor Name Role Phone Saige Vela MD Primary Care Provider Unava ilable Encounters Date Type Department Care Team Description 02/20/2025 3:50 PM EST Lab Draw Station - [address] [place] [phone] Oligomenorrhea (Primary Dx); Nausea; Vomiting from Last 3 Months Surgical History Surgery Date Site/Laterality Comments TUBAL LIGATION 10/06/2016 Bilateral PROCEDURE: HISTORICAL TUBAL LIGATION; COMMENT: Dr. Zoltan Álvarez [facility] Medical History Medical History Date Comments Depression DX:Depression Anxiety DX:Anxiety Lung density on x-ray 03/11/2017 DX:Lung de nsity on x-ray; COMMENT: LLL (CXR 03/11/2017), treated for pneumonia, ordered repeat CXR for 6 weeks and sent [employer] message Helicobacter pylori antibody positive 01/25/2019 DX:Helicobacter [...] Health Maintenance Due Date Last Done Comments Colorectal Cancer Screening: Colonoscopy 1975 Hepatitis A Vaccines (1 of 2 - Risk 2-dose series) 1996 Hepatitis B Vaccines (1 of 3 - 19+ 3-dose series) 1996 Pneumococcal Vaccine: Pediatrics (0 to 5 Years) and At-Risk Patients (6 to 49 Years) (1 of 2 - PCV) 1996 Breast Cancer Screening 10/20/2020 10/20/2018 Depression Screening 04/13/2024 Cholesterol Screening (Lipid Panel) 08/23/2024 HIV Screening 08/23/2024 Hepatitis C Screening 08/23/2024 Social Influencers of Health Screening 08/23/2024 COVID-19 Vaccine (3 - 2024- season) 2024 12/05/2020, 11/14/2020 Influenza Vaccine (#1) 2024 , 03/16/2019, 01/06/2017, Additional history exists Cervical Cancer Screening: Pap Smear 08/23/2027 08/22/2024 DTaP,Tdap,and Td Vaccines (3 - Td or Tdap) 03/28/2029 03/28/2019, 03/25/2007 RSV Immunization Adult Patients (1 - 1-dose 75+ series) 2052 HIB Vaccines Aged Out No longer eligi [...] Procedure Name Priority Date/Time Associated Diagnosis Comments BILIRUBIN DUPLICATE PROCEDURE TO ORDER Routine 02/20/2025 3:48 PM EST Oligomenorrhea Nausea Vomiting HCG, QUANTITATIVE Routine 02/20/2025 3:4 8 PM EST Oligomenorrhea Nausea Vomiting PROLACTIN Routine 02/20/2025 3:48 PM EST Oligomenorrhea Nausea Vomiting LUTEINIZING HORMONE Routine 02/20/2025 3 :48 PM EST Oligomenorrhea Nausea Vomiting FOLLICLE STIMULATING HORMONE Routine 02/20/2025 3:48 PM EST Oligomenorrhea Nausea Vomiting COMPLETE BLOOD COUNT Routine 02/20/2025 3:48 PM EST Oligomenorrhea Nausea Vomiting PROGESTERONE Routine 02/20/2025 3:48 PM EST Oligomenorrhea Nausea Vomiting SEX HORMONE BINDING GLOBULIN Routine 02/20/2025 3:48 PM EST Oligomenorrhea Nausea Vomiting ESTRADIOL Routine 02/20/2025 3:48 PM EST Oligomenorrhea Nausea Vomiting TESTOSTERONE FREE, BIOAVAILABLE AND TOTAL Routine 02/20/2025 3:48 PM EST Oligomenorrhea Nausea Vomiting THYROID STIMULATING HORMONE WITH REFLEX TO FREE T4 AND FREE T3 Routine 02/20/2025 3:48 PM EST Oligomenorrhea Nausea Vomiting COMPREHENSIVE METABOLIC PANEL Routine 02/20/2025 3:48 PM EST Oligomenorrhea Nausea Vomiting PAP SMEAR Routine 08/22/2024 12:00 AM EDT Encounter for gynecological examination (general) (routine) without abnormal findings MINDY SCREENING DIGITAL Routine 10/20/2018 4:39 PM EDT Encounter for screening mammogram for malignant neoplasm of breast from Last 3 Months or Most Recently Relevant to Health Maintenance Results * Bilirubin duplicate procedure to order (02/20/2025 3:48 PM EST) Total Bilirubin 0.4 0.0 - 1.4 mg/dL LAB CHEMISTRY METHOD 02/20/2025 7:03 PM EST [facility] Bilirubin, Direct 0.1 0.0 - 0.3 mg/dL LAB CHEMISTRY METHOD 02/20/2025 7:03 PM EST [facility] Bilirubin, Indirect 0.3 0.0 - 1.1 mg/dL LAB CHEMISTRY METHOD 02/20/2025 7:03 PM EST [facility] Blood Venous blood specimen / Unknown Venipuncture / Unknown 02/20/2025 3:48 PM EST 02/20/2025 4:07 PM EST us Luna Urbano MD LAB BLOOD ORDERABLES Fin al Result Performing Organization Address [facility]/ZIP Co de Phone Number [facility] [address] [place] [address], [place] [phone] * Thyroid stimulating hormone with reflex to free t4 and free t3 (02/20/2025 3:48 PM EST) TSH 0.71 0.40 - 4.00 mcIU/mL LAB CHEMISTRY METHOD 02/20/2025 7:47 PM EST [facility] Blood Venous blood specimen / Unknown Venipuncture / Unknown 02/20/2025 3:48 PM EST 02/20/2025 4:07 PM EST us Luna Urbano MD LAB BLOOD ORDERABLES Fin al Result [facility] [address] [place] [address], [place] [phone] * Testosterone free, bioavailable and total (02/20/2025 3:48 PM EST) Testosterone 27 9 - 48 ng/dL LAB CHEMISTRY METHOD 02/20/2025 7:48 PM EST [facility] Testosterone, Free 0.4 0.0 - 0.5 ng/dL LAB CHEMISTRY METHOD 02/20/2025 7:48 PM EST [facility] Testosterone, Bioavailable 9 1 - 9 ng/dL LAB CHEMISTRY METHOD 02/20/2025 7:48 PM EST [facility] Sex Hormone Binding 43.8 See Comment nmol/L LAB CHEMISTRY METHOD 02/20/2025 7:48 PM EST [facility] Comment: FEMALES: pre-menopausal 10.8 - >180 post-menopausal 23.2 - 159.1 MALES: 21-49 years 14.6 - 94.6 50-89 years 21.6 - 113.1 CHILDREN: No established reference range Over the counter supplements containing high doses of biotin may interfere with this assay. If interference is suspected, patients should be retested after refraining from biotin supplements for 72 hours. Albumin 4.0 3.2 - 5.0 g/dL LAB CHEMISTRY METHOD 02/20/2025 7:48 PM EST [facility] Blood Venous blood specimen / Unknown Venipuncture / Unknown 02/20/2025 3:48 PM EST 02/20/2025 4:07 PM EST us Luna Urbano MD LAB BLOOD ORDERABLES Fin al Result [facility] [address] [place] [address], * Sex hormone binding globulin (02/20/2025 3:48 PM EST) Sex Hormone Binding 43.8 See Comment nmol/L LAB CHEMISTRY METHOD 02/20/2025 7:48 PM EST [facility] Comment: FEMALES: pre-menopausal 10.8 - >180 post-menopausal 23.2 - 159.1 MALES: 21-49 years 14.6 - 94.6 50-89 years 21.6 - 113.1 CHILDREN: No established reference range Over the counter supplements containing high doses of biotin may interfere with this assay. If interference is suspected, patients should be retested after refraining from biotin supplements for 72 hours. Blood Venous blood specimen / Unknown Venipuncture / Unknown 02/20/2025 3:48 PM EST 02/20/2025 4:07 PM EST Luna Urbano MD LAB BLOOD ORDERABLES Fin al Result Performing Organization Address [facility] Co de Phone Number [facility] [address] [place] [address], * Prolactin (02/20/2025 3:48 PM EST) Prolactin 8.10 See Comment ng/mL LAB CHEMISTRY METHOD 02/20/2025 7:03 PM EST [facility] Comment: Prolactin Reference Ranges (ng/mL) Non 2.2 - 30.3 8.1 - 347.6 Postmenopausal 0.7 - 31.5 Blood Venous blood specimen / Unknown Venipuncture / Unknown 02/20/2025 3:48 PM EST 02/20/2025 4:07 PM EST Luna Urbano MD LAB BLOOD ORDERABLES Fin al Result Performing Organization Address [facility] de Phone Number [facility] [address] [place] [address], [place] [phone] * Progesterone (02/20/2025 3:48 PM EST) Progesterone 0.4 ng/mL LAB CHEMISTRY METHOD 02/20/2025 7:03 PM EST [facility] Comment: PROGESTERONE REFERENCE RANGES (NG/ML) FEMALES NORMALLY MENSTRUATING: FOLLICULAR PHASE 0.2 - 1.7 MIDCYCLE PEAK 2.3 - 242 LUTEAL PHASE 8.8 - 21.6 POSTMENOPAUSAL <0.2 - 0.9 : FIRST TRIMESTER 11.4 - 41.0 SECOND TRIMESTER 13.5 - 156 THIRD TRIMESTER 51.4 - >200 This assay should not be used in patients taking DHEA supplements as part of IVF treatment. A metabolite (DHEA-S) of this supplement has been shown to cross-react with the progesterone assay and cause falsely elevated results. Blood Venous blood specimen / Unknown Venipuncture / Unknown 02/20/2025 3:48 PM EST 02/20/2025 4:07 PM EST Luna Urbano MD LAB BLOOD ORDERABLES Fin al Result Performing Organization Address [facility] Co de Phone Number [facility] [address] [place] [address], [place] [phone] * Estradiol (02/20/2025 3:48 PM EST) Pathologist [facility] Estradiol 70 See below pcg/mL LAB CHEMISTRY METHOD 02/20/2025 7:03 PM EST [facility] Comment: ESTRADIOL REFERENCE RANGES (PG/ML) FEMALES NORMALLY MENSTRUATING: FOLLICULAR PHASE 21.4 - 164.8 MIDCYCLE PEAK 49.9 - 367.2 LUTEAL PHASE 40.2 - 259.0 POSTMENOPAUSAL: ON HRT <11 - 462.1 UNTREATED <11 - 58.3 Fulvestrant has been shown to cross-react with the estradiol assay and cause falsely elevated results. For patients being treated with fulvestrant, Estradiol ultrasensitive should be ordered. This test is performed by LC/MS and is not expected to show cross reactivity to fulvestrant. Blood Venous blood specimen / Unknown Venipuncture / Unknown 02/20/2025 3:48 PM EST 02/20/2025 4:07 PM EST Luna Urbano MD LAB BLOOD ORDERABLES Fin al Result Performing Organization Address [facility] Co de Phone Number [facility] [address] [place] [address], [place] [phone] * (ABNORMAL) Complete blood count (02/20/2025 3:48 PM EST) WBC 12.0(H) 4.8 - 10.8 K/mcL LAB HEMETOLOGY METHOD 02/20/2025 4:15 PM [facility] RBC 5.00(H) 3.80 - 4.80 M/mcL LAB HEMETOLOGY METHOD 02/20/2025 4:15 PM [facility] Hemoglobin 14.6 11.5 - 16.0 g/dL LAB HEMETOLOGY METHOD 02/20/2025 4:15 PM [facility] Hematocrit 44.3 35.0 - 47.0 % LAB HEMETOLOGY METHOD 02/20/2025 4:15 PM [facility] MCV 89.1 79.0 - 98.0 FL LAB HEMETOLOGY METHOD 02/20/2025 4:15 PM [facility] MCH 29.4 27.0 - 32.0 pcg LAB HEMETOLOGY METHOD 02/20/2025 4:15 PM [facility] MCHC 33.0 32.0 - 37.0 g/dL LAB HEMETOLOGY METHOD 02/20/2025 4:15 PM [facility] RDW 14.7 11.0 - 15.0 % LAB HEMETOLOGY METHOD 02/20/2025 4:15 PM [facility] Platelets 310 130 - 400 K/mcL LAB HEMETOLOGY METHOD 02/20/2025 4:15 PM [facility] MPV 9.4 7.0 - 11.0 FL LAB HEMETOLOGY METHOD 02/20/2025 4:15 PM [facility] NRBC 0.0 <1.0 % LAB HEMETOLOGY METHOD 02/20/2025 4:15 PM [facility] NRBC Absolute 0.00 <0.10 K/mcL LAB HEMETOLOGY METHOD 02/20/2025 4:15 PM [facility] Blood Venous blood specimen / Unknown Venipuncture / Unknown 02/20/2025 3:48 PM EST 02/20/2025 4:07 PM EST Luna Urbano MD LAB BLOOD ORDERABLES Fin al Result Performing Organization Address [facility]/ZIP Co de Phone Number [facility] [address] [place] [address], [place] [phone] * HCG, quantitative (02/20/2025 3:48 PM EST) hCG Quant <1 mIU/mL LAB CHEMISTRY METHOD 02/20/2025 7:03 PM EST [facility] Blood Venous blood specimen / Unknown Venipuncture / Unknown 02/20/2025 3:48 PM EST 02/20/2025 4:07 PM EST Narrative [facility] - 02/20/2025 7:03 PM EST Quantitative HCG Reference Ranges Time after Conception MIU/ML 0.2-1 Week 5-50 1-2 Weeks 50-500 2-3 Weeks 100-5,000 3-4 Weeks 500-10,000 4-5 Weeks 1,000-50,000 5-6 Weeks 10,000-100,000 6-8 Weeks 15,000-200,000 2-3 Months 10,000-100,000 2nd Trimester 1,000-94,000 3rd Trimester 2,500-90,000 Non- Females 1-3 Luna Urbano MD LAB BLOOD ORDERABLES Fin al Result [facility] [address] [place] [address], [place] [phone] * Luteinizing hormone (02/20/2025 3:48 PM EST) Luteinizing Hormone 15.0 See Comment mIU/mL LAB CHEMISTRY METHOD 02/20/2025 7:03 PM EST [facility] Blood Venous blood specimen / Unknown Venipuncture / Unknown 02/20/2025 3:48 PM EST 02/20/2025 4:07 PM EST Narrative [facility] - 02/20/2025 7:03 PM EST LH REFERENCE RANGES (MIU/ML) FEMALES NORMALLY MENSTRUATING: FOLLICULAR PHASE 1.9 - 12.8 MIDCYCLE PEAK 22.8 - 76.1 LUTEAL PHASE 0.6 - 13.5 POSTMENOPAUSAL: ON HRT 1.1 - 52.4 UNTREATED 8.6 - 61.8 Luna Urbano MD LAB BLOOD ORDERABLES Fin al Result [facility] [address] [place] [address], [place] [phone] * Follicle stimulating hormone (02/20/2025 3:48 PM EST) Follicle Stimulating Hormone 14.6 See Comment mIU/mL LAB CHEMISTRY METHOD 02/20/2025 7:03 PM EST [facility] Comment: FSH REFERENCE RANGES (MIU/ML) FEMALES NORMALLY MENSTRUATING: FOLLICULAR PHASE 2.3 - 12.6 MIDCYCLE PEAK 5.2 - 17.5 LUTEAL PHASE 1.7 - 9.5 POSTMENOPAUSAL: ON HRT 5.9 - 72.8 UNTREATED 12.7 - 132.2 Blood Venous blood specimen / Unknown Venipuncture / Unknown 02/20/2025 3:48 PM EST 02/20/2025 4:07 PM EST Luna Urbano MD LAB BLOOD ORDERABLES Fin al Result [facility] [address] [place] [address], [place] [phone] * (ABNORMAL) Comprehensive metabolic panel (02/20/2025 3:48 PM EST) Sodium 138 133 - 145 mmol/L LAB CHEMISTRY METHOD 02/20/2025 7:03 PM [facility] Potassium 4.2 3.5 - 5.5 mmol/L LAB CHEMISTRY METHOD 02/20/2025 7:03 PM [facility] Chloride 103 96 - 110 mmol/L LAB CHEMISTRY METHOD 02/20/2025 7:03 PM [facility] CO2 27 21 - 32 mmol/L LAB CHEMISTRY METHOD 02/20/2025 7:03 PM [facility] Anion Gap 8 3 - 11 LAB CHEMISTRY METHOD 02/20/2025 7:03 PM [facility] Glucose 121(H) 70 - 100 mg/dL LAB CHEMISTRY METHOD 02/20/2025 7:03 PM [facility] BUN 10 5 - 25 mg/dL LAB CHEMISTRY METHOD 02/20/2025 7:03 PM [facility] Creatinine 0.77 0.50 - 1.10 mg/dL LAB CHEMISTRY METHOD 02/20/2025 7:03 PM [facility] eGFR 96 >=60 mL/min/1. 73m2 LAB CHEMISTRY METHOD 02/20/2025 7:03 PM [facility] Comment:Calculation based on the Chronic Kidney Disease Epidemiology Collaboration (CKD-EPI) equation refit without adjustment for race. BUN/Creatinine Ratio 13.0 LAB CHEMISTRY METHOD 02/20/2025 7:03 PM [facility] Calcium 9.3 8.5 - 10.5 mg/dL LAB CHEMISTRY METHOD 02/20/2025 7:03 PM [facility] AST (SGOT) 17 10 - 42 unit/L LAB CHEMISTRY METHOD 02/20/2025 7:03 PM [facility] ALT (SGPT) 22 10 - 60 unit/L LAB CHEMISTRY METHOD 02/20/2025 7:03 PM [facility] Alkaline Phosphatase 103 42 - 121 unit/L LAB CHEMISTRY METHOD 02/20/2025 7:03 PM [facility] Total Protein 7.4 6.0 - 8.0 g/dL LAB CHEMISTRY METHOD 02/20/2025 7:03 PM EST [facility] Albumin 4.0 3.2 - 5.0 g/dL LAB CHEMISTRY METHOD 02/20/2025 7:03 PM EST [facility] Total Bilirubin 0.4 0.0 - 1.4 mg/dL LAB CHEMISTRY METHOD 02/20/2025 7:03 PM EST [facility] Blood Venous blood specimen / Unknown Venipuncture / Unknown 02/20/2025 3:48 PM EST 02/20/2025 4:07 PM EST us Luna Urbano MD LAB BLOOD ORDERABLES Fin al Result [facility] [address] [place] [address], * Pap smear (08/22/2024 12:00 AM EDT) Interpretation Negative for intraepithelial lesion or malignancy 08/24/2024 2:07 PM EDT [facility] at 1407 EDT General Categorization Negative 08/24/2024 2:07 PM EDT [facility] Other Findings Trichomonas vaginalis 08/24/2024 2:07 PM EDT [facility] Specimen Adequacy Satisfactory for evaluation, endocervical/walls sformation zone component present 08/24/2024 2:07 PM EDT [facility] Pap Methodology Liquid Based Pap Test 08/24/2024 2:07 PM [facility] Disclaimer The Pap test is a screening test which carries an inherent false negative rate. These test results should be correlated with the patient's clinical findings and history. This Pap test was processed using an automated screening system. Technical cytopathology services provided by [facility], at [address] [place] [address] (CLIA # [id number]/German Owens MD, Bindery Supervisor.) 08/24/2024 2:07 PM EDT [facility]) [facility] Console Pap Interpretation Reported 08/24/2024 2:07 PM EDT [facility]) [facility] Brushing/Spatula Cervix uteri structure / Unknown 08/22/2024 08/23/2024 7:00 AM EDT us Luna Urbano MD LAB CYTOLOGY ORDERABLES Final Result [facility] ([facility]) [facility] [address] [place] [address], * MINDY SCREENING DIGITAL (10/20/2018 4:39 PM EDT) Anatomical Region Laterality Modality Mammography 10/20/2018 2:37 PM EDT Narrative 10/20/2018 4:[address] [facility] Diagnostic Imaging Department [address] [place] [address] Patient: BECKI SALINASO.B./Age/Sex: 1975 - 43 - F Unit#: [id number] Location/Status: SPDIMAM/REG CLI Mnemonic/Ordering Site: [facility] Ordering Physician: SAIGE VELA MD Mindy Screening [...] malignancy. BIRADS category 2, benign findings, 3342F [id number], [id number] Note: Patient information entered into a reminder system with a target due date for the next mammogram; PQRI II 7034R Dictating Physician: ASAEL MESSER MD Electronically Signed by: ASAEL MESSER MD Dic Date/Time: 10/20/181638 Sign date/Time: 10/20/181638 Procedure Note Asael Messer - 04/02/2022 [facility] Diagnostic Imaging Department [address] [place] [address] Patient: BECKI SALINAS /Age/Sex: 1975 - 43 - F Unit#: [id number] Location/Status: [facility] CLI Mnemonic/Ordering Site: [facility] Ordering Physician: SAIGE VELA MD Mindy Screening [...] malignancy. BIRADS category 2, benign findings, [id number], [id number] Note: Patient information entered into a reminder system with a targetdue date for the next mammogram; PQRI II 7025F Dictating Physician: ASAEL MESSER MD Electronically Signed by: ASAEL MESSER MD Dic Date/Time: 10/20/18 163 Sign date/Time: 10/20/181638 Saige Vela MD IMG BI PROCEDURES Final Resu lt from Last 3 Months or Most Recently Relevant to Health Maintenance Insurance [employer] Member Subscriber Plan / Payer (Ef fective 2018-Present) Name:BECKI SALINAS Relation to Subscriber:Self Name:Becki Salinas Payer ID:[id number] Group ID:[id number] Type:Not on file Address: [address] [place] [address] Care Teams In Processing Instructor Relationship Specialty Start Date End Date Saige Vela MD PCP - General 12/31/10
--- OUTSIDE RECORDS SUMMARY | 2025-03-13 01:15 | XMS_ITS | Patient Health Record ---
Author Organization [facility] Address [address] [facility] [address] [place] [address] Care Team Providers Care Cook Fruit Name Role Phone Sofie Montana Primary Care [...] of [place] [address] [place] [phone] [id number] Becki Baez Self - patient is the insured Medical (General) History Medical History History ICD Code Other allergic rhinitis J30.89 Stress incontinence (female) (male) N39. 3 Other disorders of lung J98.4 Alcohol abuse, uncomplicated F10.10 Unspecified abdominal pain R10.9 Tobacco use disorder F17.200 Anxiety disorder, unspecified F41.9 Low back pain M54.5 Helicobacter pylori antibody positive
--- OUTSIDE RECORDS SUMMARY | 2025-03-13 01:15 | XMS_ITS | Encounter Summary ---
Author Organization [facility] Address [address] [place] [address] Care Team Providers Care Datastage Architect Name Role Phone Sofie Montana MD Primary Care Provider Gurpreet osman Encounter Details Date Type Department Care Team (Late st Contact Info) Description 10/03/2024 Lab Requisition [facility] Main Lab [address] [place] [address] Luna Urbano MD [address] [facility] [address] [place] [phone] Acute vaginitis Social History Tobacco Use Types [...] vaginalis Negative Negative 10/04/2024 1:57 PM EDT [facility] Gardnerella vaginalis Negative Negative 10/04/2024 1:57 PM EDT [facility] Mandy Species Negative Negative 1:57 PM EDT [facility] Swab Vaginal structure / Unknown 10/03/2024 10/03/2024 1:12 PM EDT us Luna Urbano MD LAB MICROBIOLOGY - GENER AL ORDERABLES Final Result [facility] [address] [place] [address], documented in this encounter Visit Diagnoses Diagnosis Acute vaginitis Unspecified vaginitis and vulvovaginitis documented in this encounter Care Teams Datastage Architect Relationship Specialty Start Date End Date Sofie Montana MD PCP - General 12/31/10 documented as of this encounter
--- OUTSIDE RECORDS SUMMARY | 2025-03-13 01:15 | XMS_ITS | Encounter Summary ---
Author Organization [facility] Address [address] [place] [address] Care Team Providers Care Product Assembler Name Role Phone Sofie Montana MD Primary Care Provider Gurpreet osman Encounter Details Date Type Department Care Team (Late st Contact Info) Description 09/15/[address] [facility] Main Lab [address] [place] [address] Luna Urbano MD 299 [facility] [address] [place] [phone] Acute vaginitis Social History Tobacco Use Types [...] vaginalis Negative Negative 09/16/2024 10:37 AM EDT [facility] Gardnerella vaginalis Negative Negative 09/16/2024 10:37 AM EDT [facility] Mandy Species Negative Negative 10:37 AM EDT [facility] Swab Vaginal structure / Unknown 09/15/2024 09/15/2024 5:55 PM EDT us Luna Urbano MD LAB MICROBIOLOGY - GENER AL ORDERABLES Final Result [facility] [address] [place] [address], documented in this encounter Visit Diagnoses Diagnosis Acute vaginitis Unspecified vaginitis and vulvovaginitis documented in this encounter Care Teams Product Assembler Relationship Specialty Start Date End Date Sofie Montana MD PCP - General 12/31/10 documented as of this encounter
--- OUTSIDE RECORDS SUMMARY | 2025-03-13 01:15 | XMS_ITS | Encounter Summary ---
Author Organization [facility] Address [address] [place] [address] Care Team Providers Care Quilting Supervisor Name Role Phone Sofie Montana MD Primary Care Provider Gurpreet osman Encounter Details Date Type Department Care Team (Latest Contact Info) Description 08/23/2024 Lab Requisition [facility] - Main Lab [address] [place] [address] Luna Urbano MD [address] [address] Encounter for gynecological examination (general) [...] lesion or malignancy 08/24/2024 2:07 PM EDT [facility] at 1407 EDT General Categorization Negative 08/24/2024 2:[address] [facility] Other Findings Trichomonas vaginalis 08/24/2024 2:[address] [facility] Specimen Adequacy Satisfactory for evaluation, endocervical/walls sformation zone component present 08/24/2024 2:[address] [facility] Pap Methodology Liquid Based Pap Test 08/24/2024 2:[address] [facility] Disclaimer The Pap test is a screening test which carries an inherent false negative rate. These test results should be correlated with the patient's clinical findings and history. This Pap test was processed using an automated screening system. Technical cytopathology services provided by [facility], at [address] [place] [address] (CLIA # [id number]/German Owens MD, Saw Runner.) 08/24/2024 2:[address] [facility] Console Pap Interpretation Reported 08/24/2024 2:07 PM [facility] Brushing/Spatula Cervix uteri structure / Unknown 08/22/2024 08/23/2024 7:00 AM EDT us Luna Urbano MD LAB CYTOLOGY ORDERABLES Final Result [facility] [address] [place] [address], documented in this encounter Visit Diagnoses Diagnosis Encounter for gynecological examination (general) (routine) without abnormal findings documented in this encounter Care Teams Quilting Supervisor Relationship Specialty Start Date End Date Sofie Montana MD PCP - General 12/31/10 documented as of this encounter
--- OUTSIDE RECORDS SUMMARY | 2025-03-13 01:15 | XMS_ITS | Clinical Summary ---
Author Organization [facility] Address [address] [facility] [address] [place] [address] Phone Care Team Providers Care Farrowing Manager Name Role Phone Dhara Leslie THERMOSPRAY OPERATOR Primary Care Provider [phone] Allergies No known active allergies Medications fluticasone [...] PCV) 1996 Influenza Vaccine (#1) 2024 Insurance [facility] [place] [id number] [place] [phone] Care Teams Farrowing Manager Relationship Specialty Start Date End Date Dhara Leslie NP [address] [place] [address] PCP - General Nurse Practitioner 12/19/20
--- NOTE | 2025-03-13 01:20 | PC.NURSE ---
provider into assess pt, medicated per mar.
[2025-03-13 01:35] VITALS: BP 117/79; PULSE 70; RESP 16; TEMP 36.1; O2SAT 95
--- NOTE | 2025-03-13 01:36 | PC.NURSE ---
reviwed discharge instructions with pt. pt verbalized understanding, no sign of respiratory distress, pt had a steady gait upon discharge
== END 2025-03-13 01:36 | disposition home or self-care (01) ==
PROVIDERS: Emergency Provider Emergency Medicine
DX: J20.8 Acute bronchitis due to other specified organisms (principal); F41.9 Anxiety disorder, unspecified; Z72.0 Tobacco use
CPT/HCPCS: 71046; 80048; 84484; 84702; 85025; 87502; 87635; 93005; 99283; 99285

== ENCOUNTER → 2025-03-12 21:59 | Outpatient (BNV) | payer OTHER, SELFPAY | PROVIDERS: Emergency Provider Emergency Medicine; Visit Provider Internal Medicine | DX: R07.9 Chest pain, unspecified (principal) | CPT/HCPCS: 93010 ==

== ENCOUNTER → 2025-03-12 22:25 | Outpatient (BNV) | payer OTHER, SELFPAY | PROVIDERS: Visit Provider Student in an Organized Health Care Education/Training Program | DX: R05.9 Cough, unspecified (principal); R06.02 Shortness of breath | CPT/HCPCS: 71046 ==

== ENCOUNTER 2025-04-09 11:38 | Emergency (ER) | payer OTHER, SELFPAY ==
--- OUTSIDE RECORDS SUMMARY | 2025-04-07 23:59 | XMS_ITS | Continuity of Care Document ---
Author Organization [facility] Address [address] [place] [address]- Care Team Providers Care Fabric Inspector Name Role Phone Juana POWER, Mildred Mortensen Primary Care Physician Encounter [facility] Date(s): 03/08/25 - 04/07/25 [facility]/[address] [address]- Encounter Type: Triage Allergies, Adverse Reactions, Alerts [...] Refills, Maintenance, 03/06/25 12:35:00 PM EST, Aerosol, [facility]/pharmacy #[id number], Partial fill upon patient request [...] Refills, Maintenance, 03/17/23 1:35:00 PM EST, Gel, [facility]/pharmacy #[id number], Partial fill upon patient request [...] Replace Required Details, Route to Pharmacy Electronically, [id number], 163, cm, 06/23/23 11:26:00 EDT, Height, 96.9, [...] Soft Stop, 02/08/25 2:53:00 PM EDT, Lotion, [facility]/pharmacy #1972, Partial fill upon patient request [...] Refills, Maintenance, 07/07/24 11:29:00 AM EDT, Patch, [facility]/pharmacy #1972, Partial fill upon patient request [...] Refills, Maintenance, 07/07/24 11:29:00 AM EDT, Gum, [facility]/pharmacy #1972, Partial fill upon patient request if the prescription is for a schedule II opioid drug., 163, cm, 07/07/24 9:48:00 EDT, Height, 97.81, kg, 07/01/24 13:50:00 EDT, Dry Weight Start Date: 07/07/24 Status: Ordered Medication Dispense Status: Completed Quantity: 120.0 Unit: each Total Allowed Fills: 2 Fills Dispensed: 0 PEG-3350 with Electrolytes (Eqv-GoLYTELY) oral powder for reconstitution 240 mL, By Mouth, Every 15 minutes, Split prep method. 1/2 gallon evening prior to colonscopy and 1/2 gallon 6h prior to start of colonoscopy, # 4,000 mL, 0 Refills, Maintenance, 12/16/23 11:16:00 AM EDT, [id number], Colonosopy Date: 01/07/24, 240 mL By Mouth Every 15 minutes,Instr:Split prep method. 1/2 gallon evening prior to colonscopy and 1/2 gallon 6h prior to start of colonoscopy, 163,cm, 09/04/23 12:51:00 EDT, Height, 93.3, kg, 09/04/23 [...] Soft Stop, 01/18/24 6:32:00 PM EDT, Cream, [facility]/pharmacy #1972, Partial fill upon patient request [...] Soft Stop, 01/15/24 3:26:00 PM EDT, Lotion, [facility]/pharmacy #1972, Partial fill upon patient request [...] AM EST, Inhaler, Route to Pharmacy Electronically, [id number], [facility]/pharmacy #1972, 165, cm, 12/06/20 9:32:00 EDT, [...] Refills, Maintenance, 07/14/24 9:52:00 AM EDT, Tablet, [id number], Partial fill upon patient request [...] and swelling of left knee Confirmed Active *[phone]-Car e Partner Innocent Philippe Confirmed Active Seasonal [...] Team Personnel Name: Mildred Arias MD Position: [facility] Physician - Primary Care Member Role: PCP Address: [address] [place] [address] Telecom: Care Team Related Persons Name: MIRNA MONTANEZ Name: KOFI DOLL Name: GEETA SALINAS Name: JOHAN SALINAS Insurance Providers Guarantor name[facility] Health Plan Information #: 1 Payer: [facility] Payer Identifier: NA Member Number: [id number] Group Number: [id number] Subscriber Identifier: NA Relationship to Subscriber: self Coverage Type: Medicare Managed Care (Includes Medicare Advantage Plans) Coverage Verification Date: NA Telecom: ASHISH Address:
--- NOTE | ~2025-04-09 | XR_ITS ---
CLINICAL HISTORY: pain, injury 3 views sacrum and coccyx Comparison: None provided Findings No acute fractures. No significant degenerative change. No erosions. IMPRESSION: No acute findings This document has been electronically signed by: Monserrat Henry MD on 04/09/2025 13:39:53
--- NOTE | ~2025-04-09 | XR_ITS ---
CLINICAL HISTORY: pain, injury 3 views lumbar spine Comparison: None provided Findings: Grade 1 anterolisthesis of L4 on L5. No acute fractures or dislocation. 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 No significant loss of intervertebral disc height. IMPRESSION: No acute findings. This document has been electronically signed by: Monserrat Henry MD on 04/09/2025 13:40:07
[2025-04-09 12:08] VITALS: BP 149/74; PULSE 71; RESP 20; TEMP 36.3; O2SAT 96; BMI 40.0
--- NOTE | 2025-04-09 12:09 | ED_ITS ---
HPI - General Adult General Chief complaint: Back Pain/Injury Stated complaint: FALL PRE EXISTING INJURY LOWER BACK LEG PAIN Time Seen by Provider: 04/09/25 16:26 Source: patient Mode of arrival: ambulatory Limitations: no limitations History of Present Illness ED Provider: Arianne Enriquez PA-C HPI narrative: Patient is a 49 year old female with a history of alcohol use / abuse, PTSD, MDD, and WANDA presenting to the emergency department today with acute on chronic back pain. Patient states that she has had issues with her back for several years, specifically right sided sciatica. Patient states that over the last few months it has been getting worse with left sided involvement also present. Patient states that she is having intermittent numbness / tingling in the legs. Patient states that she recently slipped and fell - landing on her buttock and having worsening pain. Patient states that someone told her she should get an MRI. Patient denies any urinary or bowel incontinence or retention. Patient denies any other complaints at this time. Relieving factors: none Associated symptoms: denies other symptoms Related Data Home Medications ?Medication ?Instructions ?Recorded ?Confirmed albuterol sulfate 90 mcg/actuation 2 puff inhalation Q 6H PRN 04/22/21 04/22/21 aerosol inhaler Shortness Of Breath aripiprazole 15 mg tablet 7.5 mg PO DAILY 04/22/2102/01 clonazepam 1 mg tablet (Klonopin) 1 mg PO DAILY PRN An xiety 04/22/21 04/22/21 fluticasone propionate 44 2 puff inhalation BID 04/22/21 mcg/actuation HFA aerosol inhaler melatonin 10 mg tablet 10 mg PO BEDTIME PRN Insomni a 04/22/21 04/22/21 propranolol 40 mg tablet 20 mg PO TID PRN panic/anxie ty 04/22/21 04/22/21 Previous Rx's ?Medication ?Instructions ?Recorded hydroxyzine HCl 50 mg tablet 50 mg PO TID PRN anxiety, 04/22/21 agitation #90 tabs naltrexone 50 mg tablet 50 mg PO DAILY 30 days #30 t abs 05/06/21 naltrexone microspheres 380 mg 380 mg IM Q4W 30 days # 1 ea 10/28/21 intramuscular suspension,extended release (Vivitrol) acamprosate 333 mg tablet,delayed 666 mg (2 x 333 mg) PO TID 30 days 09/26/22 release #180 tabs albuterol sulfate 90 mcg/actuation 2 puff inhalation Q 4-6H PRN 01/14/22 aerosol inhaler shortness of breath or wheez ing #6.7 grams guaifenesin 600 mg tablet, 600 mg PO Q12H PRN congesti on #14 01/14/22 extended release 12 hr tabs prednisone 20 mg tablet 40 mg (2 x 20 mg) PO DAILY 5 days 01/14/22 #10 tabs acetaminophen 500 mg tablet 500 mg PO Q6H PRN fever or pain 02/21/22 (Tylenol Extra Strength) #14 tabs cephalexin 500 mg capsule 500 mg PO QID 7 days #28 cap s 02/21/22 doxycycline hyclate 100 mg tablet 100 mg PO BID 7 days #14 tabs 02/21/22 ibuprofen 800 mg tablet 800 mg PO Q8H PRN pain #14 t abs 02/21/22 ketorolac 10 mg tablet 10 mg PO TID PRN pain 5 days #15 05/03/22 tabs cyclobenzaprine 10 mg tablet 10 mg PO TID PRN muscle s pasm #14 08/27/22 tabs ibuprofen 600 mg tablet 600 mg PO Q8H PRN pain #14 t abs 08/27/22 lidocaine 5 % topical patch 1 patch topical DAILY #15 ea 08/27/22 ibuprofen 600 mg tablet 600 mg PO Q6H PRN fever or p ain 10/21/22 #30 tabs oxycodone 5 mg tablet 5 mg PO Q6H PRN pain #20 tab s 10/21/22 prednisone 20 mg tablet 40 mg (2 x 20 mg) PO DAILY # 10 tabs 10/21/22 oxycodone 5 mg capsule 5 mg PO Q8H PRN pain (scale score 10/22/22 7-10) 3 days #9 caps nitrofurantoin 100 mg PO BID 5 days #10 cap s 11/08/24 monohydrate/macrocrystals 100 mg capsule (Macrobid) nitrofurantoin 100 mg PO Q12H 5 days #10 ca ps 12/31/24 monohydrate/macrocrystals 100 mg capsule (Macrobid) phenazopyridine 200 mg tablet 200 mg PO TID PRN pain 9 doses #9 12/31/24 (Pyridium) tabs metronidazole 500 mg tablet 500 mg PO BID #14 tabs prednisone 50 mg tablet 50 mg PO DAILY #4 tabs 03/13 cyclobenzaprine 5 mg tablet 5 mg PO TID PRN muscle spa sm 7 04/09/25 days #21 tabs prednisone 20 mg tablet 40 mg (2 x 20 mg) PO DAILY C OPD 04/09/25 exacerbation 5 days #10 tabs Allergies Allergy/AdvReac Type Severity Reaction Status Date / Time fluconazole (Diflucan) Allergy Unknown unk Verified 04/09/25 12:12 Review of Systems Constitutional: Constitutional: Reports as per HPI Eyes: Eyes: Reports as per HPI ENT: Reports as per HPI Cardiovascular: Cardiovascular: Reports as per HPI Respiratory: Respiratory: Reports as per HPI Gastrointestinal: Gastrointestinal: Reports as per HPI Genitourinary: Genitourinary: Reports as per HPI Musculoskeletal: Musculoskeletal: Reports as per HPI Integumentary/Breasts: Skin/Breast: Reports as per HPI Neurologic: Reports as per HPI Psychiatric: Psychiatric: Reports as per HPI Endocrine: Endocrine: Reports as per HPI Hematologic/Lymphatic: Hematologic/Lymphatic: Reports as per HPI Allergic/Immunologic: Allergic/Immunologic: Reports as per HPI [facility] Past Medical History Attestation statement: The following information was validated with the patient. 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 Physical Exam ED Vital Signs: Vital Signs - 24 hr 04/09/25 12:08 04/09/25 16:46 Temperature 97.3 F 97.3 F Pulse Rate 71 71 Respiratory Rate 20 20 Blood Pressure 149/74 H 149/74 H Pulse Oximetry 96 96 Oxygen Delivery Method Room Air Room Air BMI result Body Mass Index 40.0 Const General: cooperative, alert and awake Orientation/consciousness: patient oriented x3 HENMT Head: Yes normal to inspection and Yes atraumatic Ears: hearing grossly normal bilaterally and external ears normal General nose exam: Normal external nose present, no nasal discharge noted and no epistaxis Face and sinus: Yes normal facial exam, No abrasion and No laceration Mouth: Normal oral and palatal mucosa present, no drooling and no muffled voice Eyes General: appearance normal, both eyes and all related structures Periorbital: periorbital findings normal Eyelids: Yes eyelids normal Conjunctivae: conjunctivae normal Pupils: Equal, round and reactive pupils present EOM: EOMs intact bilaterally Resp Effort & Inspection: normal respiratory effort and able to speak in complete sentences Neuro General: patient oriented x3, moves all extremities and CN's II-XI intact bilaterally Cranial nerves: Yes Equal, round and reactive pupils present Cognition (Neuro): normal cognition Extrem General: Yes full ROM Psych Appearance: grossly normal Mental Status: mental status grossly normal Attitude: cooperative Course Course Course Narrative: Rapid medical examination performed in triage by Airanne Enriquez PA-C: Patient is a 49 year old female presenting to the emergency department with low back pain and lower extremity numbness. Patient states she slipped and fell yesterday and re-injured her buttock / low back. Patient states that she has had several years of back pain that is not improving. Patient states that she would like to get an MRI. Detailed physical exam and review of systems are deferred to the material control analyst. Imaging ordered. Patient placed back in the waiting room pending room availability and results. Medications Administered Discontinued Medications Generic Name Dose Route Start Last Admin Trade Name Joseq PRN Reason Stop Dose Admin Acetaminophen 975 mg 04/09/25 15:55 04/09/25 15:58 Acetaminophen 325 Mg Tablet PO 04/09/25 15:56 975 mg ONCE ONE Administration Cyclobenzaprine HCl 5 mg 04/09/25 16:36 04/09/25 16:42 Cyclobenzaprine Hcl 5 Mg Tablet PO 04/09/25 16:37 5 mg ONCE ONE Administration Prednisone 40 mg 04/09/25 16:36 04/09/25 16:42 Prednisone 20 Mg Tablet PO 04/09/25 16:37 40 mg ONCE ONE Administration Medical Decision Making Medical Decision Making MDM Narrative: Patient is a 49 year old female with a history of alcohol use / abuse, PTSD, MDD, and WANDA presenting to the emergency department today with acute on chronic back pain. Patient's physical exam was as noted in the physical exam portion of this note. Patient's sacral / coccyx / and lumbar spine x-rays showed no acute process. Patient's clinical presentation is most consistent with acute on chronic low back pain. I explained my physical exam findings as well as all test results to the patient. I answered all questions asked by the patient. Patient was given a dose of Flexeril and Prednisone while in the department. I stressed the importance of the patient taking her medication as directed (either prescribed or as the over the counter packaging recommends). I stressed the importance of the patient following up with her primary care provider and a curriculum development specialist. I stressed the importance of the patient returning to the emergency department immediately if her symptoms were to worsen or if she were to develop any dizziness, shortness of breath, difficulty breathing, chest pain, blurry vision, loss of vision, nausea, vomiting, abdominal pain, fever, chills, back pain, or any other complaints. Patient verbalized agreement and understanding with this treatment plan and discharge. Differential Diagnosis Differential Diagnoses: The differential diagnosis associated with the presentation includes Back pain Acute on chronic back pain Sciatica Fracture Admission/Observation Consideration of admission/observation: Escalation of care including admission/observation considered Patient would have been admitted to the hospital had her work up had any findings where hospital admission was appropriate and her clinical presentation warranted hospital admission. Independent Interpretation I performed an independent interpretation of an: Plain X-Ray Interpretation: My interpretation is in agreement with the radiologist's impression of these imaging studies as written below. CLINICAL HISTORY: pain, injury 3 views lumbar spine Comparison: None provided Findings: Grade 1 anterolisthesis of L4 on L5. No acute fractures or dislocation. 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 No significant loss of intervertebral disc height. IMPRESSION: No acute findings. This document has been electronically signed by: Monserrat Henry MD on 04/09/2025 13:40:07 Dictated By: Monserrat Henry MD Signed By: Electronically signed by Monserrat Henry MD 04/09/25 1341 CLINICAL HISTORY: pain, injury 3 views sacrum and coccyx Comparison: None provided Findings No acute fractures. No significant degenerative change. No erosions. IMPRESSION: No acute findings This document has been electronically signed by: Monserrat Henry MD on 04/09/2025 13:39:53 Dictated By: Monserrat Henry MD Signed By: Electronically signed by Monserrat Henry MD 04/09/25 1341 Radiology Impression Discussion of test interpretation with radiology: I have reviewed the radiologist's reading. Prescription Management I considered prescription management with: Pain Medication (patient prescribed pain medication (flexeril)) Discharge Plan Discharge Clinical Impression: Back pain Qualifiers: Back pain location: low back pain Chronicity: unspecified Back pain laterality: unspecified Sciatica presence: with sciatica Sciatica laterality: sciatica of right side Qualified Code(s): M54.41 - Lumbago with sciatica, right side Patient Disposition: Home, Self-Care Instructions: Back Pain (ED) Additional Instructions: Your x-rays showed no evidence of acute bony process. Given the semi-chronic nature of your pain, you should follow up with the spine team. IF you are prescribed home medications and/or you are taking over the counter medications at home - it is very important you continue to do so as prescribed / directed unless told otherwise by a healthcare provider. Follow up with your primary care provider. Do your best to stay well hydrated and rest. Return to the emergency department immediately if your symptoms worsen or if you develop any numbness, tingling, dizziness, shortness of breath, difficulty shilpa thing, chest pain, blurry vision, loss of vision, nausea, vomiting, abdominal pain, fever, chills, back pain, or any other complaints. If you do not have a primary care provider - call any of the below numbers to establish and follow up with a primary care provider. [facility] [place] [phone] [place], [place] [address] [place], [address] [facility] [place] [place] [phone] [address] [facility], [address] [facility], [address] [facility] [place] [place] [phone] [address] [facility], [address] [place], [address] [facility] [place] ([facility]aisal Cisneros) [phone] [place] [address], [address] [facility], [address] [facility] [place] [phone] [address] [facility], [address] Please see the information below about our Patient Portal. If you are not yet enrolled in the [facility] Patient Portal, you will receive an enrollment email invitation following your visit to any [facility] setting. You may also self-enroll in the Patient Portal by visiting our website: [email or web address] The following information is required to access the Patient Portal: - Your [facility] [place] Number - Your personal home email address (must match what is in your electronic medical record, Registration staff can assist with this) - Name - Date of Capabilities of the Patient Portal: - Message some providers - View upcoming appointments - Access your health summary, medical history, and visit history - View current conditions and allergies - View procedure and lab results - View your medications, including guidelines, side effects, and precautions - Complete pre-appointment questionnaires requested by your provider - Ready summary reports of your office visits and procedures To access the Patient Portal Mobile [employer], follow these directions: - Search [employer] in the [employer] Store or [employer] Store - Download the Dixon - Search for [facility] - Enter your login/password Prescriptions: New cyclobenzaprine 5 mg tablet 5 mg PO TID PRN (Reason: muscle spasm) 7 Days Qty: 21 0RF prednisone 20 mg tablet 40 mg PO DAILY 5 Days Qty: 10 0RF No Action albuterol sulfate 90 mcg/actuation HFA aerosol inhaler 2 puff inhalation Q4-6H PRN (Reason: shortness of breath or wheezing) Qty: 6.7 0RF prednisone 20 mg tablet 40 mg PO DAILY 5 Days Qty: 10 0RF guaifenesin 600 mg tablet extended release 12hr 600 mg PO Q12H PRN (Reason: congestion) Qty: 14 0RF clonazepam [Klonopin] 1 mg Tablet 1 mg PO DAILY PRN (Reason: Anxiety) propranolol 40 mg Tablet 20 mg PO TID PRN (Reason: panic/anxiety) Rx Instructions: Take 1/2 tab three times a day as needed. Flovent 44 mcg/actuation Hfa Aerosol Inhaler 2 puff INHALATION BID albuterol sulfate 90 mcg/actuation Hfa Aerosol Inhaler 2 puff INHALATION Q6H PRN (Reason: Shortness Of Breath) aripiprazole 15 mg Tablet 7.5 mg PO DAILY Rx Instructions: take 1/2 tab daily. melatonin 10 mg Tablet 10 mg PO BEDTIME PRN (Reason: Insomnia) hydroxyzine HCl 50 mg tablet 50 mg PO TID PRN (Reason: anxiety, agitation) Qty: 90 0RF naltrexone 50 mg tablet 50 mg PO DAILY 30 Days Qty: 30 0RF cephalexin 500 mg capsule 500 mg PO QID 7 Days Qty: 28 0RF doxycycline hyclate 100 mg tablet 100 mg PO BID 7 Days Qty: 14 0RF ibuprofen 800 mg tablet 800 mg PO Q8H PRN (Reason: pain) Qty: 14 0RF acetaminophen [Tylenol Extra Strength] 500 mg tablet 500 mg PO Q6H PRN (Reason: fever or pain) Qty: 14 0RF ketorolac 10 mg tablet 10 mg PO TID PRN (Reason: pain) 5 Days Qty: 15 0RF Rx Instructions: Tolerated IM in the department prednisone 20 mg tablet 40 mg PO DAILY Qty: 10 0RF ibuprofen 600 mg tablet 600 mg PO Q6H PRN (Reason: fever or pain) Qty: 30 0RF oxycodone 5 mg tablet 5 mg PO Q6H PRN (Reason: pain) Qty: 20 0RF Rx Instructions: Partial Fill upon patient request. oxycodone 5 mg capsule 5 mg PO Q8H PRN (Reason: pain (scale score 7-10)) 3 Days Qty: 9 0RF Rx Instructions: Partial Fill upon patient request. cyclobenzaprine 10 mg tablet 10 mg PO TID PRN (Reason: muscle spasm) Qty: 14 0RF ibuprofen 600 mg tablet 600 mg PO Q8H PRN (Reason: pain) Qty: 14 0RF lidocaine 5 % adhesive patch,medicated 1 patch topical DAILY Qty: 15 0RF Rx Instructions: leave on most painful area for up to 12 hrs nitrofurantoin monohyd/m-cryst [Macrobid] 100 mg capsule 100 mg PO BID 5 Days Qty: 10 0RF Rx Instructions: must administer with a meal/food nitrofurantoin monohyd/m-cryst [Macrobid] 100 mg capsule 100 mg PO Q12H 5 Days Qty: 10 0RF Rx Instructions: must administer with a meal/food phenazopyridine [Pyridium] 200 mg tablet 200 mg PO TID PRN (Reason: pain) Qty: 9 0RF metronidazole 500 mg tablet 500 mg PO BID Qty: 14 0RF prednisone 50 mg tablet 50 mg PO DAILY Qty: 4 0RF Vivitrol 380 mg suspension,extended rel recon 380 mg IM Q4W 30 Days Qty: 1 5RF acamprosate 333 mg tablet,delayed release (DR/EC) 666 mg PO TID 30 Days Qty: 180 3RF Referrals: [facility] [Provider Group, Neurosurgery] Referral Note: Given the semi-chronic nature of your back pain - you should call to establish and follow up with a curriculum development specialist. Stand Alone Forms: Work/School Release Interventions: ED Discharge Assessment Last Done: 04/09/25 16:46 Discharge Date/Time: 04/09/25 16:46 Print Language: Greek
--- OUTSIDE RECORDS SUMMARY | 2025-04-09 16:36 | XMS_ITS | Clinical Summary ---
Author Organization [address] Address [address] [place] [phone] Phone Care Team Providers Care Head Mixer Name Role Phone Saige Vela MD Primary Care Provider Unava ilable Encounters Date Type Department Care Team Description 02/20/2025 3:50 PM EST Lab Draw Station - [address] [place] [phone] Oligomenorrhea (Primary Dx); Nausea; Vomiting from Last 3 Months Surgical History Surgery Date Site/Laterality Comments TUBAL LIGATION 10/06/2016 Bilateral PROCEDURE: HISTORICAL TUBAL LIGATION; COMMENT: [place]. Zoltan Álvarez [facility] [place] History Medical History Date Comments Depression DX:Depression Anxiety DX:Anxiety Lung density on x-ray 03/11/2017 DX:Lung de nsity on x-ray; COMMENT: LLL (CXR 03/11/2017), treated for pneumonia, ordered repeat CXR for 6 weeks and sent [employer] message Helicobacter pylori antibody positive 01/25/2019 DX:Helicobacter [...] on file Sexual Orientation Not on file Plan of Treatment Health Maintenance Due Date [...] LAB CHEMISTRY METHOD 02/20/2025 7:03 PM EST [facility] Bilirubin, Direct 0.1 0.0 - 0.3 mg/dL LAB CHEMISTRY METHOD 02/20/2025 7:03 PM EST [facility] Bilirubin, Indirect 0.3 0.0 - 1.1 mg/dL LAB CHEMISTRY METHOD 02/20/2025 7:03 PM EST [facility] Blood Venous blood specimen / Unknown Venipuncture / Unknown 02/20/2025 3:48 PM EST 02/20/2025 4:07 PM EST us Luna Urbano MD LAB BLOOD ORDERABLES Fin al Result Performing Organization Address [facility]/ZIP Co de Phone Number [facility] [address] [place] [address], [place] [phone] * Thyroid stimulating hormone with reflex to free t4 and free t3 (02/20/2025 3:48 PM EST) TSH 0.71 0.40 - 4.00 mcIU/mL LAB CHEMISTRY METHOD 02/20/2025 7:47 PM EST [facility] Blood Venous blood specimen / Unknown Venipuncture / Unknown 02/20/2025 3:48 PM EST 02/20/2025 4:07 PM EST us Luna Urbano MD LAB BLOOD ORDERABLES Fin al Result [facility] [address] [place] [address], [place] [phone] * Testosterone free, bioavailable and total (02/20/2025 3:48 PM EST) Testosterone 27 9 - 48 ng/dL LAB CHEMISTRY METHOD 02/20/2025 7:48 PM EST [facility] Testosterone, Free 0.4 0.0 - 0.5 ng/dL LAB CHEMISTRY METHOD 02/20/2025 7:48 PM EST [facility] Testosterone, Bioavailable 9 1 - 9 ng/dL LAB CHEMISTRY METHOD 02/20/2025 7:48 PM EST [facility] Sex Hormone Binding 43.8 See Comment nmol/L LAB CHEMISTRY METHOD 02/20/2025 7:48 PM EST [facility] Comment: FEMALES: pre-menopausal 10.8 - >180 [...] LAB CHEMISTRY METHOD 02/20/2025 7:48 PM EST [facility] Blood Venous blood specimen / Unknown Venipuncture / Unknown 02/20/2025 3:48 PM EST 02/20/2025 4:07 PM EST us Luna Urbano MD LAB BLOOD ORDERABLES Fin al Result [facility] [address] [place] [address], * Sex hormone binding globulin (02/20/2025 3:48 PM EST) Sex Hormone Binding 43.8 See Comment nmol/L LAB CHEMISTRY METHOD 02/20/2025 7:48 PM EST [facility] Comment: FEMALES: pre-menopausal 10.8 - >180 [...] ORDERABLES Fin al Result Performing Organization Address [facility] Co de Phone Number [facility] [address] [place] [address], [place] [phone] * Prolactin (02/20/2025 3:48 PM EST) Prolactin 8.10 See Comment ng/mL LAB CHEMISTRY METHOD 02/20/2025 7:03 PM EST [facility] Comment: Prolactin Reference Ranges (ng/mL) Non 2.2 - 30.3 8.1 - 347.6 Postmenopausal 0.7 - 31.5 Blood Venous blood specimen / Unknown Venipuncture / Unknown 02/20/2025 3:48 PM EST 02/20/2025 4:07 PM EST Luna Urbano MD LAB BLOOD ORDERABLES Fin al Result Performing Organization Address [facility] de Phone Number [facility] [address] [place] [address], [place] [phone] * Progesterone (02/20/2025 3:48 PM EST) Progesterone 0.4 ng/mL LAB CHEMISTRY METHOD 02/20/2025 7:03 PM EST [facility] Comment: PROGESTERONE REFERENCE RANGES (NG/ML) FEMALES [...] ORDERABLES Fin al Result Performing Organization Address [facility] Co de Phone Number [facility] [address] [place] [address], [place] [phone] * Estradiol (02/20/2025 3:48 PM EST) Estradiol 70 See below pcg/mL LAB CHEMISTRY METHOD 02/20/2025 7:03 PM EST [facility] Comment: ESTRADIOL REFERENCE RANGES (PG/ML) FEMALES [...] ORDERABLES Fin al Result Performing Organization Address [facility] Co de Phone Number [facility] [address] [place] [address], [place] [phone] * (ABNORMAL) Complete blood count (02/20/2025 3:48 PM EST) WBC 12.0(H) 4.8 - 10.8 K/mcL LAB HEMETOLOGY METHOD 02/20/2025 4:15 PM [facility] RBC 5.00(H) 3.80 - 4.80 M/mcL LAB HEMETOLOGY METHOD 02/20/2025 4:15 PM [facility] Hemoglobin 14.6 11.5 - 16.0 g/dL LAB HEMETOLOGY METHOD 02/20/2025 4:15 PM [facility] Hematocrit 44.3 35.0 - 47.0 % LAB HEMETOLOGY METHOD 02/20/2025 4:15 PM [facility] MCV 89.1 79.0 - 98.0 FL LAB HEMETOLOGY METHOD 02/20/2025 4:15 PM [facility] MCH 29.4 27.0 - 32.0 pcg LAB HEMETOLOGY METHOD 02/20/2025 4:15 PM [facility] MCHC 33.0 32.0 - 37.0 g/dL LAB HEMETOLOGY METHOD 02/20/2025 4:15 PM [facility] RDW 14.7 11.0 - 15.0 % LAB HEMETOLOGY METHOD 02/20/2025 4:15 PM [facility] Platelets 310 130 - 400 K/mcL LAB HEMETOLOGY METHOD 02/20/2025 4:15 PM [facility] MPV 9.4 7.0 - 11.0 FL LAB HEMETOLOGY METHOD 02/20/2025 4:15 PM [facility] NRBC 0.0 <1.0 % LAB HEMETOLOGY METHOD 02/20/2025 4:15 PM [facility] NRBC Absolute 0.00 <0.10 K/mcL LAB HEMETOLOGY METHOD 02/20/2025 4:15 PM [facility] Blood Venous blood specimen / Unknown Venipuncture / Unknown 02/20/2025 3:48 PM EST 02/20/2025 4:07 PM EST Luna Urbano MD LAB BLOOD ORDERABLES Fin al Result Performing Organization Address [facility] Co de Phone Number [facility] [address] [place] [address], [place] [phone] * HCG, quantitative (02/20/2025 3:48 PM EST) hCG Quant <1 mIU/mL LAB CHEMISTRY METHOD 02/20/2025 7:03 PM EST [facility] Blood Venous blood specimen / Unknown Venipuncture / Unknown 02/20/2025 3:48 PM EST 02/20/2025 4:07 PM EST Narrative [facility] - 02/20/2025 7:03 PM EST Quantitative HCG Reference Ranges Time after Conception MIU/ML 0.2-1 Week 5-50 1-2 Weeks 50-500 2-3 Weeks 100-5,000 3-4 Weeks 500-10,000 4-5 Weeks 1,000-50,000 5-6 Weeks 10,000-100,000 6-8 Weeks 15,000-200,000 2-3 Months 10,000-100,000 2nd Trimester 1,000-94,000 3rd Trimester 2,500-90,000 Non- Females 1-3 Luna Urbano MD LAB BLOOD ORDERABLES Fin al Result Performing Organization Address City/[facility]/ZIP Co de Phone Number [facility] [address] [place] [address], [place] [phone] * Luteinizing hormone (02/20/2025 3:48 PM EST) Luteinizing Hormone 15.0 See Comment mIU/mL LAB CHEMISTRY METHOD 02/20/2025 7:03 PM EST [facility] Blood Venous blood specimen / Unknown Venipuncture / Unknown 02/20/2025 3:48 PM EST 02/20/2025 4:07 PM EST Narrative [facility] - 02/20/2025 7:03 PM EST LH REFERENCE RANGES (MIU/ML) FEMALES NORMALLY MENSTRUATING: FOLLICULAR PHASE 1.9 - 12.8 MIDCYCLE PEAK 22.8 - 76.1 LUTEAL PHASE 0.6 - 13.5 POSTMENOPAUSAL: ON HRT 1.1 - 52.4 UNTREATED 8.6 - 61.8 Luna Urbano MD LAB BLOOD ORDERABLES Fin al Result Performing Organization Address City/[facility]/ZIP Co de Phone Number [facility] [address] [place] [address], [place] [phone] * Follicle stimulating hormone (02/20/2025 3:48 PM EST) Follicle Stimulating Hormone 14.6 See Comment mIU/mL LAB CHEMISTRY METHOD 02/20/2025 7:03 PM EST [facility] Comment: FSH REFERENCE RANGES (MIU/ML) FEMALES NORMALLY MENSTRUATING: FOLLICULAR PHASE 2.3 - 12.6 MIDCYCLE PEAK 5.2 - 17.5 LUTEAL PHASE 1.7 - 9.5 POSTMENOPAUSAL: ON HRT 5.9 - 72.8 UNTREATED 12.7 - 132.2 Blood Venous blood specimen / Unknown Venipuncture / Unknown 02/20/2025 3:48 PM EST 02/20/2025 4:07 PM EST Luna Urbano MD LAB BLOOD ORDERABLES Fin al Result [facility] [address] [place] [address], [place] [phone] * (ABNORMAL) Comprehensive metabolic panel (02/20/2025 3:48 PM EST) Sodium 138 133 - 145 mmol/L LAB CHEMISTRY METHOD 02/20/2025 7:03 PM [facility] Potassium 4.2 3.5 - 5.5 mmol/L LAB CHEMISTRY METHOD 02/20/2025 7:03 PM [facility] Chloride 103 96 - 110 mmol/L LAB CHEMISTRY METHOD 02/20/2025 7:03 PM [facility] CO2 27 21 - 32 mmol/L LAB CHEMISTRY METHOD 02/20/2025 7:03 PM [facility] Anion Gap 8 3 - 11 LAB CHEMISTRY METHOD 02/20/2025 7:03 PM [facility] Glucose 121(H) 70 - 100 mg/dL LAB CHEMISTRY METHOD 02/20/2025 7:03 PM [facility] BUN 10 5 - 25 mg/dL LAB CHEMISTRY METHOD 02/20/2025 7:03 PM [facility] Creatinine 0.77 0.50 - 1.10 mg/dL LAB CHEMISTRY METHOD 02/20/2025 7:03 PM [facility] eGFR 96 >=60 mL/min/1. 73m2 LAB CHEMISTRY METHOD 02/20/2025 7:03 PM [facility] Comment:Calculation based on the Chronic Kidney Disease Epidemiology Collaboration (CKD-EPI) equation refit without adjustment for race. BUN/Creatinine Ratio 13.0 LAB CHEMISTRY METHOD 02/20/2025 7:03 PM [facility] Calcium 9.3 8.5 - 10.5 mg/dL LAB CHEMISTRY METHOD 02/20/2025 7:03 PM [facility] AST (SGOT) 17 10 - 42 unit/L LAB CHEMISTRY METHOD 02/20/2025 7:03 PM [facility] ALT (SGPT) 22 10 - 60 unit/L LAB CHEMISTRY METHOD 02/20/2025 7:03 PM [facility] Alkaline Phosphatase 103 42 - 121 unit/L LAB CHEMISTRY METHOD 02/20/2025 7:03 PM [facility] Total Protein 7.4 6.0 - 8.0 g/dL LAB CHEMISTRY METHOD 02/20/2025 7:03 PM EST [facility] Albumin 4.0 3.2 - 5.0 g/dL LAB CHEMISTRY METHOD 02/20/2025 7:03 PM EST [facility] Total Bilirubin 0.4 0.0 - 1.4 mg/dL LAB CHEMISTRY METHOD 02/20/2025 7:03 PM EST [facility] Blood Venous blood specimen / Unknown Venipuncture / Unknown 02/20/2025 3:48 PM EST 02/20/2025 4:07 PM EST us Luna Urbano MD LAB BLOOD ORDERABLES Fin al Result [facility] [address] [place] [address], * Pap smear (08/22/2024 12:00 AM EDT) Interpretation Negative for intraepithelial lesion or malignancy 08/24/2024 2:07 PM EDT [facility] at 1407 EDT General Categorization Negative 08/24/2024 2:07 PM EDT [facility] Other Findings Trichomonas vaginalis 08/24/2024 2:07 PM EDT [facility] Specimen Adequacy Satisfactory for evaluation, endocervical/walls sformation zone component present 08/24/2024 2:07 PM EDT [facility] Pap Methodology Liquid Based Pap Test [facility] Disclaimer The Pap test is a screening test which carries an inherent false negative rate. These test results should be correlated with the patient's clinical findings and history. This Pap test was processed using an automated screening system. Technical cytopathology services provided by [facility], at [address] [place] [address] (CLIA # [id number]/German Owens MD, Guard Supervisor.) 08/24/2024 2:[address] [facility] Console Pap Interpretation Reported 08/24/2024 2:07 PM EDT [facility]) [facility] Brushing/Spatula Cervix uteri structure / Unknown 08/22/2024 08/23/2024 7:00 AM EDT us Luna Urbano MD LAB CYTOLOGY ORDERABLES Final Result [facility] [address] [place] [address], * MINDY SCREENING DIGITAL (10/20/2018 4:39 PM EDT) Anatomical Region Laterality Modality Mammography 10/20/2018 2:37 PM EDT Narrative 10/20/2018 4:39 PM EDT [facility] Diagnostic Imaging Department [address] [place] [address] Patient: BECKI SALINASO.B./Age/Sex: 1975 - 43 - F Unit#: [id number] Location/Status: SPDIMAM/REG CLI Mnemonic/Ordering Site: [facility] Ordering Physician: SAIGE VELA MD Mindy [...] malignancy. BIRADS category 2, benign findings, 3342F [id number], [address]891 Note: Patient information entered into a reminder system with a target due date for the next mammogram; PQRI II [id number] Dictating Physician: ASAEL MESSER MD Electronically Signed by: ASAEL MESSER MD Dic Date/Time: 10/20/181638 Sign date/Time: 10/20/181638 Procedure Note Asael Messer - 04/02/2022 [facility] Diagnostic Imaging Department [address] [place] [address] Patient: DEDRAMOHITBECKI /Age/Sex: 1975 43 - F Unit#: [id number] [facility] Mnemonic/Ordering Site: [facility] Ordering Physician: SAIGE VELA MD Mindy [...] malignancy. BIRADS category 2, benign findings, 3342F [id number], [address]35 Note: Patient information entered into a reminder system with a targetdue date for the next mammogram; PQRI II 7025F Dictating Physician: ASAEL MESSER MD Electronically Signed by: ASAEL MESSER MD Dic Date/Time: 10/20/18 163 Sign date/Time: 10/20/181638 Saige Vela MD IMG BI PROCEDURES Final Resu lt from Last 3 Months or Most Recently Relevant to Health Maintenance Insurance [facility] MEDICAID Care Teams Head Mixer Relationship Specialty Start Date End Date Saige Vela MD PCP - General 12/31/10
--- OUTSIDE RECORDS SUMMARY | 2025-04-09 16:36 | XMS_ITS | Encounter Summary ---
Author Organization [facility] Address [address] [place] [address] Care Team Providers Care Can Dryer Name Role Phone Sofie Montana MD Primary Care Provider Gurpreet osman Encounter Details Date Type Department Care Team (Latest Contact Info) Description 08/22/2024 Lab Requisition [facility] - Main Lab [address] [facility] [place] [address] Luna Urbano MD 299 [facility] [address] [place] [address] Acute vaginitis; Encounter for screening [...] vaginalis Positive(A) Negative 08/23/2024 9:04 AM EDT [facility] Gardnerella vaginalis Positive(A) Negative 08/23/2024 9:04 AM EDT [facility] Mandy Species Negative Negative 9:04 AM EDT [facility] Swab Vaginal structure / Unknown 08/22/2024 08/22/2024 5:59 PM EDT us Luna Urbano MD LAB MICROBIOLOGY - GENER AL ORDERABLES Final Result Performing Organization Address City/[facility]/ZIP Co de Phone Number [facility] [address] [place] [address], [place] [phone] * Chlamydia trachomatis and Neisseria gonorrhoeae molecular study (08/22/2024 12:00 AM EDT) Neisseria gonorrhoeae PCR Negative Negative LAB MOLECULAR DIAGNOSTICS METHOD 08/23/2024 9:09 AM EDT [facility] Chlamydia trachomatis PCR Negative Negative LAB MOLECULAR DIAGNOSTICS METHOD 08/23/2024 9:09 AM EDT [facility] Swab Cervix uteri structure / Unknown 08/22/2024 08/22/2024 5:59 PM EDT us Luna Urbano MD LAB MICROBIOLOGY - GENER AL ORDERABLES Final Result [facility] [address] [place] [address], [place] [phone] documented in this encounter Visit Diagnoses Diagnosis Acute vaginitis Unspecified vaginitis and vulvovaginitis Encounter for screening for infections with a predominantly sexual mode of transmission documented in this encounter Care Teams Can Dryer Relationship Specialty Start Date End Date Sofie Montana MD PCP - General 12/31/10 documented as of this encounter
--- OUTSIDE RECORDS SUMMARY | 2025-04-09 16:36 | XMS_ITS | Encounter Summary ---
Author Organization [facility] Address [address] [place] [address] Care Team Providers Care Manager Of Compensation Name Role Phone Sofie Montana MD Primary Care Provider Gurpreet osman Encounter Details Date Type Department Care Team (Latest Contact Info) Description 08/23/2024 Lab Requisition [facility] - Main Lab [address] [place] [address] Luna Urbano MD [address] [address] Encounter for gynecological examination (general) [...] lesion or malignancy 08/24/2024 2:07 PM EDT [facility] at 1407 EDT General Categorization Negative 08/24/2024 2:07 PM EDT [facility] Other Findings Trichomonas vaginalis 08/24/2024 2:07 PM T [facility] Specimen Adequacy Satisfactory for evaluation, endocervical/walls sformation zone component present 08/24/2024 2:07 PM EDT [facility] Pap Methodology Liquid Based Pap Test 08/24/2024 2:07 PM EDT [facility] Disclaimer The Pap test is a screening test which carries an inherent false negative rate. These test results should be correlated with the patient's clinical findings and history. This Pap test was processed using an automated screening system. Technical cytopathology services provided by [facility], at [address] [place] [address] (CLIA # [id number]/German Owens MD, Milk Route Supervisor.) 08/24/2024 2:07 PM EDT [facility] Console Pap Interpretation Reported 08/24/2024 2:07 PM [facility] Brushing/Spatula Cervix uteri structure / Unknown 08/22/2024 08/23/2024 7:00 AM EDT us Luna Urbano MD LAB CYTOLOGY ORDERABLES Final Result [facility] [address] [place] [address], documented in this encounter Visit Diagnoses Diagnosis Encounter for gynecological examination (general) (routine) without abnormal findings documented in this encounter Care Teams Manager Of Compensation Relationship Specialty Start Date End Date Sofei Montana MD PCP - General 12/31/10 documented as of this encounter
--- OUTSIDE RECORDS SUMMARY | 2025-04-09 16:36 | XMS_ITS | Encounter Summary ---
Author Organization [facility] Address [address] [place] [address] Care Team Providers Care Store Sales Manager Name Role Phone Sofie Montana MD Primary Care Provider Gurpreet osman Encounter Details Date Type Department Care Team (Late st Contact Info) Description 09/15/2024 Lab Requisition [facility] Main Lab [address] [place] [address] Luna Urbano MD [address] [facility] [address] [place] [phone] Acute vaginitis Social History Tobacco Use Types [...] vaginalis Negative Negative 09/16/2024 10:37 AM EDT [facility] Gardnerella vaginalis Negative Negative 09/16/2024 10:37 AM EDT [facility] Mandy Species Negative Negative 10:37 AM EDT [facility] Swab Vaginal structure / Unknown 09/15/2024 09/15/2024 5:55 PM EDT us Luna Urbano MD LAB MICROBIOLOGY - GENER AL ORDERABLES Final Result [facility] [address] [place] [address], documented in this encounter Visit Diagnoses Diagnosis Acute vaginitis Unspecified vaginitis and vulvovaginitis documented in this encounter Care Teams Store Sales Manager Relationship Specialty Start Date End Date Sofie Montana MD PCP - General 12/31/10 documented as of this encounter
--- OUTSIDE RECORDS SUMMARY | 2025-04-09 16:36 | XMS_ITS | Clinical Summary ---
Author Organization [facility] Address [address] [facility] [address] [place] [address] Phone Care Team Providers Care Shoes Hand Sewer Name Role Phone Dhara Leslie AUDIOLOGY DIRECTOR Primary Care Provider [phone] Allergies No known active allergies Medications fluticasone [...] PCV) 1996 Influenza Vaccine (#1) 2024 Insurance [facility] [place] [phone] [place] [phone] Care Teams Shoes Hand Sewer Relationship Specialty Start Date End Date Dhara Leslie NP [address] [place] [address] PCP - General Nurse Practitioner 12/19/20
--- OUTSIDE RECORDS SUMMARY | 2025-04-09 16:36 | XMS_ITS | Patient Health Record ---
Author Organization [facility] Address [address] [facility] [address] [place] [address] Care Team Providers Care Saw Man Name Role Phone Sofie Montana Primary Care [...] of [place] [address] [place] [phone] [id number] Becki Baez Self - patient is the insured Medical (General) History Medical History History ICD Code Other allergic rhinitis J30.89 Stress incontinence (female) (male) N39. 3 Other disorders of lung J98.4 Alcohol abuse, uncomplicated F10.10 Unspecified abdominal pain R10.9 Tobacco use disorder F17.200 Anxiety disorder, unspecified F41.9 Low back pain M54.5 Helicobacter pylori antibody positive
--- OUTSIDE RECORDS SUMMARY | 2025-04-09 16:36 | XMS_ITS | Encounter Summary ---
Author Organization [facility] Address [address] [place] [address] Care Team Providers Care Game Breeding Farm Manager Name Role Phone Sofie Montana MD Primary Care Provider Gurpreet osman Encounter Details Date Type Department Care Team (Late st Contact Info) Description 10/03/2024 Lab Requisition [facility] Main Lab [address] [place] [address] Luna Urbano MD 299 [facility] [address] [place] [phone] Acute vaginitis Social History Tobacco Use Types [...] vaginalis Negative Negative 10/04/2024 1:57 PM EDT [facility] Gardnerella vaginalis Negative Negative 10/04/2024 1:57 PM EDT [facility] Mandy Species Negative Negative 1:57 PM EDT [facility] Swab Vaginal structure / Unknown 10/03/2024 10/03/2024 1:12 PM EDT us Luna Urbano MD LAB MICROBIOLOGY - GENER AL ORDERABLES Final Result [facility] [address] [place] [address], documented in this encounter Visit Diagnoses Diagnosis Acute vaginitis Unspecified vaginitis and vulvovaginitis documented in this encounter Care Teams Game Breeding Farm Manager Relationship Specialty Start Date End Date Sofie Montana MD PCP - General 12/31/10 documented as of this encounter
[2025-04-09 16:46] VITALS: BP 149/74; PULSE 71; RESP 20; TEMP 36.3; O2SAT 96
== END 2025-04-09 16:46 | disposition home or self-care (01) ==
PROVIDERS: Emergency Provider Emergency Medicine
DX: M54.41 Lumbago with sciatica, right side (principal); R20.0 Anesthesia of skin; R20.2 Paresthesia of skin; Z91.81 History of falling; F41.9 Anxiety disorder, unspecified; F17.200 Nicotine dependence, unspecified, uncomplicated; Z71.6 Tobacco abuse counseling
CPT/HCPCS: 72100; 72220; 99283

== ENCOUNTER → 2025-04-09 12:13 | Outpatient (BNV) | payer OTHER, SELFPAY | PROVIDERS: Visit Provider Radiology Diagnostic Radiology | DX: M54.50 Low back pain, unspecified (principal); M53.3 Sacrococcygeal disorders, not elsewhere classified | CPT/HCPCS: 72100; 72220 ==